=== PATIENT | female | born 1945 | race Caucasian/White ===

== ENCOUNTER 2020-01-17 09:30 | Outpatient (REF) | payer MEDICARE, SELFPAY | END 2020-01-17 09:31 | disposition home or self-care (01) | LOC: HO.LAB 09:30 | PROVIDERS: PCP Internal Medicine; Visit Provider Internal Medicine | DX: Z20.828 Contact with and (suspected) exposure to other viral communicable diseases (principal) | CPT/HCPCS: 87635 ==

== ENCOUNTER 2020-02-12 11:20 | Outpatient (REF) | payer MEDICARE, SELFPAY | END 2020-02-12 11:21 | disposition home or self-care (01) | LOC: HO.HMGCLDS 11:20 | PROVIDERS: Visit Provider Internal Medicine | DX: Z20.828 Contact with and (suspected) exposure to other viral communicable diseases (principal) | CPT/HCPCS: C9803; U0003 ==

== ENCOUNTER → 2020-04-09 10:50 | Outpatient (BNVA) | payer MEDICARE, SELFPAY | PROVIDERS: PCP Internal Medicine; Visit Provider Advanced Practice Midwife | DX: N90.89 Other specified noninflammatory disorders of vulva and perineum (principal) | CPT/HCPCS: Q3014 ==

== ENCOUNTER 2020-04-22 11:18 | Outpatient (REF) | payer MEDICARE, SELFPAY ==
--- NOTE | 2020-04-22 11:24 | US_ITS ---
EXAMINATION: US PELVIS, LIMITED/FOLLOWUP CLINICAL INFORMATION: Left-sided labia mass. Rule out Bartholin's gland/hernia/mass. COMPARISON: None TECHNIQUE: Transabdominal limited imaging through the labia was performed. FINDINGS: There is anechoic cyst with internal debris left major labia measuring 3.5 x 2.0 x 2.8 cm. There is mild posterior acoustic enhancement but no increased vascularity seen. US/US pelvic limited IMPRESSION: Complex cyst likely Bartholin's cyst along the left labia majora.
== END 2020-04-22 11:19 | disposition home or self-care (01) ==
LOC: HO.US 11:18
PROVIDERS: Visit Provider Advanced Practice Midwife
DX: N90.89 Other specified noninflammatory disorders of vulva and perineum (principal)
CPT/HCPCS: 76857

== ENCOUNTER → 2020-04-25 11:29 | Outpatient (BNVA) | payer MEDICARE, SELFPAY | PROVIDERS: PCP Internal Medicine; Visit Provider Advanced Practice Midwife | DX: Z13.89 Encounter for screening for other disorder (principal) | CPT/HCPCS: Q3014 ==

== ENCOUNTER 2020-04-29 11:00 | Outpatient (REF) | payer MEDICARE, SELFPAY | END 2020-04-29 11:01 | disposition home or self-care (01) | LOC: HO.LAB 11:00 | PROVIDERS: PCP Internal Medicine; Visit Provider Obstetrics & Gynecology | DX: N75.0 Cyst of Bartholin's gland (principal) | CPT/HCPCS: 56420; 87071; 87205 ==

== ENCOUNTER → 2020-05-22 10:13 | Outpatient (BNVA) | payer MEDICARE, SELFPAY | PROVIDERS: Visit Provider Obstetrics & Gynecology | DX: N75.0 Cyst of Bartholin's gland (principal) | CPT/HCPCS: 99212 ==

== ENCOUNTER 2020-06-04 11:15 | Outpatient (REF) | payer MEDICARE, SELFPAY ==
--- NOTE | ~2020-06-04 | US_ITS ---
EXAMINATION: US PELVIS COMPLETE US TRANSVAGINAL CLINICAL INFORMATION: Hypertrophy of the uterus. COMPARISON: Ultrasound limited pelvis 04/22/2020. TECHNIQUE: Transabdominal and transvaginal ultrasounds pelvis are performed. FINDINGS: The uterus is anteverted and anteflexed measuring 7.9 cm in length, 4.4 cm in AP and 7.1 cm in transverse dimension. Endometrium is not seen. There are innumerable hypoechoic fibroid is seen. The largest fibroid in the fundal uterus measures 3.4 x 3.2 x 3.4 cm. Small echogenic focus seen in the cervix measuring 0.5 x 0.4 x 0.7 cm. Both ovaries are unremarkable. There is no free fluid in the pelvis. US/US pelvic complete IMPRESSION: Multiple uterine fibroids. The largest fibroid is mentioned measuring 3.4 cm. Ovaries are not seen. There is no free fluid in cul-de-sac. There is no free fluid in the pelvis.
--- NOTE | ~2020-06-04 | US_ITS ---
EXAMINATION: US PELVIS COMPLETE US TRANSVAGINAL CLINICAL INFORMATION: Hypertrophy of the uterus. COMPARISON: Ultrasound limited pelvis 04/22/2020. TECHNIQUE: Transabdominal and transvaginal ultrasounds pelvis are performed. FINDINGS: The uterus is anteverted and anteflexed measuring 7.9 cm in length, 4.4 cm in AP and 7.1 cm in transverse dimension. Endometrium is not seen. There are innumerable hypoechoic fibroid is seen. The largest fibroid in the fundal uterus measures 3.4 x 3.2 x 3.4 cm. Small echogenic focus seen in the cervix measuring 0.5 x 0.4 x 0.7 cm. Both ovaries are unremarkable. There is no free fluid in the pelvis. US/US transvaginal IMPRESSION: Multiple uterine fibroids. The largest fibroid is mentioned measuring 3.4 cm. Ovaries are not seen. There is no free fluid in cul-de-sac. There is no free fluid in the pelvis.
== END 2020-06-04 11:16 | disposition home or self-care (01) ==
LOC: HO.US 11:15
PROVIDERS: Visit Provider Obstetrics & Gynecology
DX: N85.2 Hypertrophy of uterus (principal)
CPT/HCPCS: 76830; 76856

== ENCOUNTER → 2020-06-11 12:29 | Outpatient (BNVA) | payer MEDICARE, SELFPAY | PROVIDERS: Visit Provider Obstetrics & Gynecology | CPT/HCPCS: Q3014 ==

== ENCOUNTER 2020-06-13 07:38 | Outpatient (REF) | payer MEDICARE, SELFPAY ==
[2020-06-13 08:36] LABS: MANUAL DIFF FLAG NO
[2020-06-13 08:41] LABS: Basophils Percent Auto 0.6 % (0-2); Eosinophils Absolute Auto 0.2 X10*3/uL (0.0-0.4); Eosinophils Percent Auto 3.6 % (0-4); Hematocrit 39.7 % (37-47); Hemoglobin 12.8 g/dl (12.0-16.0); Imm Gran Abs Auto 0.01 X10*3/uL (0.00-0.03); Imm Gran Pct Auto 0.2 % (0.0-0.4); Lymphocytes Absolute Auto 1.7 X10*3/uL (1.2-4.9); Mean Corpuscular HGB Conc 32.2 g/dl (31.0-35.0); Mean Corpuscular Hemoglobin 32.3 pg (27.0-33.0); Mean Corpuscular Volume 100.3 fL (80-98); Mean Platelet Volume 10.3 fL (9.4-12.3); Monocytes Absolute Auto 0.3 X10*3/uL (0.1-1.2); Monocytes Percent Auto 7.2 % (2-11); Neutrophils Absolute Auto 2.5 X10*3/uL (2.0-8.3); Neutrophils Percent Auto 52.4 % (45-73); Platelet Count 289 X10*3/uL (160-400); Red Blood Count 3.96 X10*6/uL (4.20-5.50); Red Cell Distribution Width 12.2 % (11.0-16.0); White Blood Count 4.7 X10*3/uL (4.8-10.8)
[2020-06-13 09:06] LABS: Alanine Aminotransferase 26 U/L (0-31); Albumin Level 4.1 g/dL (3.5-5.0); Alkaline Phosphatase 45 U/L (39-117); Anion Gap 10 (12-20); Aspartate Amino Transferase 27 U/L (5-31); Bilirubin Total 0.7 mg/dL (0.0-1.0); Blood Urea Nitrogen 23 mg/dL (9-16); Calcium 9.5 mg/dL (8.4-10.2); Carbon Dioxide 30 mmol/L (22-29); Chloride 106 mmol/L (96-108); Cholesterol 186 mg/dL; Estimated Glomerular Filt Rate > 60; Glucose Random 115 mg/dL (60-115); HDL Cholesterol 55 mg/dL; LDL Cholesterol Calculated 118 mg/dl; Sodium 142 mmol/L (135-145); Total Protein 6.8 g/dL (6.5-8.0); Triglycerides 66 mg/dL
[2020-06-13 09:28] LABS: Free T4 (Free Thyroxine) 0.91 ng/dL (0.71-1.85); Thyroid Stimulating Hormone 2.79 uIU/mL (0.32-4.0); Vitamin D 25-OH Total 39.8 ng/mL (>30)
[2020-06-14 18:28] LABS: Folate 14.8 ng/mL (> or = 4.0); Vitamin B12 1042 pg/mL (200-900)
== END 2020-06-13 07:39 | disposition home or self-care (01) ==
LOC: HO.LAB 07:38
PROVIDERS: PCP Internal Medicine; Visit Provider Internal Medicine
DX: I10 Essential (primary) hypertension (principal); E78.00 Pure hypercholesterolemia, unspecified; F32.9 Major depressive disorder, single episode, unspecified; F41.9 Anxiety disorder, unspecified
CPT/HCPCS: 36415; 80053; 80061; 82306; 82607; 82746; 84439; 84443; 85025

== ENCOUNTER 2021-03-04 09:54 | Outpatient (REF) | payer MEDICARE, SELFPAY ==
[2021-03-05 09:31] LABS: CT PCR NOT DETECTED (Not Detect.); NG PCR NOT DETECTED (Not Detect.)
[2021-03-05 10:02] LABS: BV Int Neg Control Negative (Negative); BV Int Pos Control Positive (Positive)
== END 2021-03-04 09:55 | disposition home or self-care (01) ==
LOC: HO.LAB 09:54
PROVIDERS: PCP Internal Medicine; Visit Provider Advanced Practice Midwife
DX: R10.2 Pelvic and perineal pain (principal)
CPT/HCPCS: 81003; 87480; 87491; 87510; 87591; 87660; 99212

== ENCOUNTER 2021-03-18 10:30 | Outpatient (REF) | payer MEDICARE, SELFPAY ==
--- NOTE | ~2021-03-18 | MM_ITS ---
EXAMINATION: BONE DENSITOMETRY CLINICAL INDICATION: Other specified disorders of bone density and structure. COMPARISON: Previous BD dated 03/14/2019 and baseline BD dated 08/29/2015. TECHNIQUE: Using a [employer] DXA System (software version: 13.1) manufactured by [employer], dual-energy x-ray absorptiometry was performed of the lumbar spine and left hip. The images are of good technical quality. Summary results are attached. FINDINGS: AP SPINE L1-L4: Current: BMD 1.028 g/cm2, Z-score 1.0, T-score -1.3, osteopenia, 0.3% increase from previous, 0.6% increase from baseline (<5% change is not significant). Prior: BMD 1.025 g/cm2. Baseline: BMD 1.022 g/cm2. LEFT FEMUR, NECK: Current: BMD 0.613 g/cm2, Z-score -0.8, T-score -3.1, osteoporosis. Prior: BMD 0.640 g/cm2. Baseline: BMD 0.661 g/cm2. LEFT FEMUR, TOTAL: Current: BMD 0.701 g/cm2, Z-score -0.3, T-score -2.4, osteopenia, 6.9% decrease from previous, 13.3% decrease from baseline (<5% change is not significant). Prior: BMD 0.753 g/cm2. Baseline: BMD 0.809 g/cm2. IDENTIFIED RISK FACTORS: Osteoporosis, height loss, low calcium intake, menopause. HISTORY OF FRACTURE: Feet, trauma (20s, 40s) MEDICATIONS: None listed. MM/XR DEXA axial skeleton IMPRESSION: 1. DIAGNOSIS: Osteoporosis based on the lowest T-score value of -3.1 in the femoral neck applying World Health Organization criteria. 2. 10-YEAR FRACTURE RISK PREDICTION, FRAX: According to the guidelines, FRAX calculation should only be performed on patients in the osteopenia bone density category. 3. Treatment Recommendations: NOF guidelines recommend consideration for treatment in postmenopausal women and men age 50 and older presenting with the following: -A hip or vertebral (clinical or morphometric) fracture. -T-score less than or equal to -2.5 at the femoral neck or spine after appropriate evaluation to exclude secondary causes. -Low bone mass at the hip or spine and a 10-year fracture probability by FRAX of greater than or equal to 3% for hip fracture or greater than or equal to 20% for major osteoporotic fracture based on the [place] adapted WHO algorithm. 4. Other Recommendations: All treatment decisions require clinical judgment and consideration of individual patient factors, including patient preferences, comorbidities, previous drug use, risk factors not captured in the FRAX model (e.g. frailty, falls, vitamin D deficiency, increased bone turnover, interval significant decline in bone density) and possible under or overestimation of fracture risk by FRAX. Additional medical evaluation for secondary cause of low bone mineral density may be appropriate. FUTURE SCAN RECOMMENDATION: People with diagnosed cases of osteoporosis or at high risk for fracture should have regular bone mineral density tests. For patients eligible for Medicare, routine testing is allowed once every 2 years. The testing frequency can be increased to one year for patients who have rapidly progressing disease, those who are receiving or discontinuing medical therapy to restore bone mass, or have additional risk factors.
== END 2021-03-18 10:31 | disposition home or self-care (01) ==
LOC: HO.MAMMO 10:30
PROVIDERS: Visit Provider Internal Medicine
DX: Z13.820 Encounter for screening for osteoporosis (principal); M85.80 Other specified disorders of bone density and structure, unspecified site; Z78.0 Asymptomatic menopausal state
CPT/HCPCS: 77080

== ENCOUNTER 2021-03-25 11:21 | Outpatient (REF) | payer MEDICARE, SELFPAY ==
--- NOTE | ~2021-03-25 | US_ITS ---
EXAMINATION: US PELVIS CLINICAL INFORMATION: Pelvic pain, fibroids and enlarged anterior urethra. COMPARISON: None TECHNIQUE: Ultrasound of the pelvis is performed using both transabdominal and transvaginal transducers along with Doppler. Transvaginal imaging is performed due to inadequate visualization transabdominally. Translabial imaging was also performed. FINDINGS: Exam is limited. The uterus appears enlarged for a postmenopausal patient measuring 9.1 x 4.9 x 6.7 cm in dimension. The uterus is heterogeneous appearing, question secondary to large central fibroid or clustered fibroids. Measured as one fibroid, this area measures approximately 6.4 x 4.6 x 6.1 cm. The endometrium is not seen. There is a calcification in the cervix that measures 6 x 4 x 7 mm. The ovaries are not seen. There is no fluid in the pelvis. There is mobile echogenic debris seen in the bladder. There is, tail artifact seen along the anterior gallbladder wall questionable for air. The urethra appears dilated. There is echogenic density in the urethra with comet tail artifact questionable for calcification or air. US/US pelvic and transvaginal IMPRESSION: Very limited exam. Enlarged uterus. Heterogeneous central uterine mass questionable for fibroid or clustered fibroids. This measures 6.4 x 4.6 x 6.1 cm and is increased in size from June 2020 exam when this measured 3.4 x 3.2 x 3.4 cm. The endometrium is not seen. Endometrial lesion cannot be excluded. Mobile echogenic debris in the bladder. Common tail artifact along the anterior bladder wall questionable for air. Dilated urethra with echogenic focus with comet tail artifact, question calcification or air. Follow-up CT scan may be helpful.
== END 2021-03-25 11:22 | disposition home or self-care (01) ==
LOC: HO.US 11:21
PROVIDERS: Visit Provider Advanced Practice Midwife
DX: R10.2 Pelvic and perineal pain (principal)
CPT/HCPCS: 76830; 76856

== ENCOUNTER 2021-03-26 11:00 | Outpatient (RCR) | payer MEDICARE, SELFPAY | END 2021-03-27 08:47 | disposition home or self-care (01) | LOC: HO.PT 11:00 | PROVIDERS: PCP Internal Medicine; Visit Provider Physician Assistant | DX: M25.371 Other instability, right ankle (principal) | CPT/HCPCS: 97110; 97162 ==

== ENCOUNTER → 2021-04-08 10:49 | Outpatient (BNVA) | payer MEDICARE, SELFPAY | PROVIDERS: PCP Internal Medicine; Visit Provider Advanced Practice Midwife | DX: Z71.2 Person consulting for explanation of examination or test findings (principal); D21.9 Benign neoplasm of connective and other soft tissue, unspecified; N36.9 Urethral disorder, unspecified | CPT/HCPCS: Q3014 ==

== ENCOUNTER 2021-04-14 07:59 | Outpatient (REF) | payer MEDICARE, SELFPAY ==
[2021-04-14 08:16] LABS: MANUAL DIFF FLAG NO
[2021-04-14 08:29] LABS: Basophils Percent Auto 0.7 % (0-2); Eosinophils Absolute Auto 0.2 X10*3/uL (0.0-0.4); Eosinophils Percent Auto 3.7 % (0-4); Hematocrit 39.4 % (37.0-47.0); Imm Gran Abs Auto 0.01 X10*3/uL (0.00-0.03); Imm Gran Pct Auto 0.2 % (0.0-0.4); Lymphocytes Absolute Auto 1.5 X10*3/uL (1.2-4.9); Lymphocytes Percent Auto 33.8 % (20-40); Mean Corpuscular Hemoglobin 33.1 pg (27.0-33.0); Mean Corpuscular Volume 100.3 fL (80.0-98.0); Mean Platelet Volume 9.8 fL (9.4-12.3); Monocytes Absolute Auto 0.4 X10*3/uL (0.1-1.2); Monocytes Percent Auto 8.8 % (2-11); Neutrophils Absolute Auto 2.3 x10*3/uL (2.0-8.3); Neutrophils Percent Auto 52.8 % (45-73); Platelet Count 331 X10*3/uL (160-400); Red Blood Count 3.93 X10*6/uL (4.20-5.50); Red Cell Distribution Width 12.3 % (11.0-16.0); White Blood Count 4.3 X10*3/uL (4.8-10.8)
[2021-04-14 08:40] LABS: Estimated Average Glucose 111 mg/dL; Hemoglobin A1c % 5.5 %
[2021-04-14 08:51] LABS: Alanine Aminotransferase 40 U/L (0-31); Alkaline Phosphatase 47 U/L (39-117); Anion Gap 10 (12-20); Aspartate Amino Transferase 30 U/L (5-31); Bilirubin Total 0.5 mg/dL (0.0-1.0); Blood Urea Nitrogen 20 mg/dL (9-16); Calcium 10.3 mg/dL (8.4-10.2); Carbon Dioxide 33 mmol/L (22-29); Chloride 103 mmol/L (96-108); Cholesterol 239 mg/dL; Estimated Glomerular Filt Rate > 60; Glucose Random 116 mg/dL (60-115); HDL Cholesterol 54 mg/dL; LDL Cholesterol Calculated 165 mg/dl; Potassium 3.8 mmol/L (3.3-5.1); Sodium 142 mmol/L (135-145); Triglycerides 101 mg/dL
[2021-04-14 09:16] LABS: Free T4 (Free Thyroxine) 0.94 ng/dL (0.71-1.85); Thyroid Stimulating Hormone 3.53 uIU/mL (0.32-4.0); Vitamin D 25-OH Total 43.9 ng/mL (>30)
[2021-04-14 09:28] LABS: Folate 16.9 ng/mL (> or = 4.0); Vitamin B12 1109 pg/mL (200-900)
== END 2021-04-14 08:00 | disposition home or self-care (01) ==
LOC: HO.LAB 07:59
PROVIDERS: PCP Internal Medicine; Visit Provider Internal Medicine
DX: R73.01 Impaired fasting glucose (principal); I10 Essential (primary) hypertension; E78.00 Pure hypercholesterolemia, unspecified
CPT/HCPCS: 36415; 80053; 80061; 82306; 82607; 82746; 83036; 84439; 84443; 85025

== ENCOUNTER → 2021-06-02 11:32 | Outpatient (BNVA) | payer MEDICARE, SELFPAY | PROVIDERS: PCP Internal Medicine | DX: R10.2 Pelvic and perineal pain (principal) | CPT/HCPCS: 51798; 99202 ==

== ENCOUNTER 2021-06-25 16:06 | Outpatient (REF) | payer MEDICARE, SELFPAY ==
[2021-06-25 17:05] LABS: Blood Urea Nitrogen 18 mg/dL (9-16); Estimated Glomerular Filt Rate > 60
== END 2021-06-25 16:07 | disposition home or self-care (01) ==
LOC: HO.LAB 16:06
PROVIDERS: PCP Internal Medicine; Visit Provider Advanced Practice Midwife
DX: Z01.818 Encounter for other preprocedural examination (principal); R51.9 Headache, unspecified
CPT/HCPCS: 36415; 82565; 84520

== ENCOUNTER 2021-07-02 05:59 | Outpatient (REF) | payer OTHER, SELFPAY ==
--- NOTE | ~2021-07-02 | CT_ITS ---
EXAMINATION: CT ABDOMEN AND PELVIS WITH CONTRAST CLINICAL INFORMATION: Pelvic and perineal pain. COMPARISON: Previous pelvic ultrasound March 2021. TECHNIQUE: Multidetector volumetric images were obtained from the superior aspect of the liver through the pubic symphysis following administration 85 mL of Omnipaque 350 intravenous contrast. Sagittal and coronal reformatted images were obtained on the technologist's workstation. Oral contrast: Yes This CT examination was performed using dose optimization techniques as appropriate, variously including the following: *Automated exposure control *Adjustment of mA and/or kV according to patient size (this includes techniques or standardized protocols for targeted exams where dose is matched to indication/reason for exam; i.e. extremities or head) *Use of iterative reconstruction technique DLP: 223 mGy-cm FINDINGS: LUNG BASES: The visualized lung bases are unremarkable. LIVER, GALLBLADDER, AND BILIARY TREE: The liver is normal in size, shape, and attenuation. No focal hepatic lesion or biliary ductal dilatation is present. The gallbladder has been removed. PANCREAS: Unremarkable. SPLEEN: Unremarkable. ADRENAL GLANDS: Unremarkable. KIDNEYS AND URETERS: There are bilateral renal cysts. 2 cm cyst in the upper pole of the right kidney may have a small focus of wall calcification. The remainder of the cysts represent simple cysts. No imaging followup is needed. BLADDER: There is a small calcification along the anterior upper bladder wall. The bladder is otherwise unremarkable. GASTROINTESTINAL TRACT: There is diverticulosis of the colon. There is stool throughout the colon suggestive of mild constipation. Small and large bowel is otherwise normal. The appendix is normal. The stomach is normal. ABDOMINAL WALL: No significant hernia is appreciated. LYMPH NODES: Normal. VASCULAR: There is evidence of atherosclerotic disease. PELVIC VISCERA: The uterus is enlarged. There are multiple uterine lesions. The endometrium cannot be delineated. There is a small calcification in the lower uterine segment or cervix. The ovaries are normal-appearing. OSSEOUS STRUCTURES: There are degenerative changes of the spine. CT/CT abdomen pelvis w con IMPRESSION: Enlarged uterus with multiple lesions. The endometrium is not seen. Endometrial mass cannot be excluded. Followup pelvic MRI should be considered if clinically indicated i.e. history of vaginal bleeding. Small calcification in the lower uterine segment or cervix. Diverticulosis of the colon and constipation. Bilateral renal cysts. Post cholecystectomy. Atherosclerotic disease. Fleischner guidelines were followed.
[2021-07-02] MEDS: Barium Sulfate Oral (Berry) 450 ML ORAL.SUSP PO (08:50)
[2021-07-02] MEDS: iohexoL 350 MG/ML 100 ML INFUS..BTL IV (08:50)
== END 2021-07-02 06:00 | disposition home or self-care (01) ==
LOC: HO.CT 05:59
PROVIDERS: Visit Provider Advanced Practice Midwife
DX: R10.2 Pelvic and perineal pain (principal)
CPT/HCPCS: 74177; Q9967

== ENCOUNTER → 2021-07-14 10:21 | Outpatient (BNVA) | payer OTHER, SELFPAY | PROVIDERS: PCP Internal Medicine; Visit Provider Advanced Practice Midwife | DX: R10.2 Pelvic and perineal pain (principal); D25.9 Leiomyoma of uterus, unspecified; Z71.2 Person consulting for explanation of examination or test findings | CPT/HCPCS: 99212 ==

== ENCOUNTER 2022-01-29 09:28 | Outpatient (REF) | payer OTHER, SELFPAY | END 2022-01-29 09:29 | disposition home or self-care (01) | LOC: HO.LAB 09:28 | PROVIDERS: PCP Internal Medicine; Visit Provider Advanced Practice Midwife | DX: Z13.89 Encounter for screening for other disorder (principal) ==

== ENCOUNTER 2022-04-15 08:08 | Outpatient (REF) | payer OTHER, SELFPAY ==
[2022-04-15 08:29] LABS: MANUAL DIFF FLAG NO
[2022-04-15 09:00] LABS: Basophils Absolute Auto 0.1 X10*3/uL (0.0-0.2); Eosinophils Absolute Auto 0.3 X10*3/uL (0.0-0.4); Eosinophils Percent Auto 4.8 % (0-4); Hematocrit 39.3 % (37.0-47.0); Hemoglobin 13.1 g/dl (12.0-16.0); Imm Gran Abs Auto 0.01 X10*3/uL (0.00-0.03); Imm Gran Pct Auto 0.2 % (0.0-0.4); Lymphocytes Absolute Auto 1.5 X10*3/uL (1.2-4.9); Lymphocytes Percent Auto 28.6 % (20-40); Mean Corpuscular HGB Conc 33.3 g/dl (31.0-35.0); Mean Corpuscular Hemoglobin 32.9 pg (27.0-33.0); Mean Corpuscular Volume 98.7 fL (80.0-98.0); Monocytes Absolute Auto 0.4 X10*3/uL (0.1-1.2); Monocytes Percent Auto 7.6 % (2-11); Neutrophils Percent Auto 57.8 % (45-73); Platelet Count 336 X10*3/uL (160-400); Red Blood Count 3.98 X10*6/uL (4.20-5.50); Red Cell Distribution Width 13.2 % (11.0-16.0); White Blood Count 5.3 X10*3/uL (4.8-10.8)
[2022-04-15 09:36] LABS: Alanine Aminotransferase 19 U/L (0-31); Albumin Level 4.1 g/dL (3.5-5.0); Alkaline Phosphatase 47 U/L (39-117); Anion Gap 11 (12-20); Aspartate Amino Transferase 24 U/L (5-31); Bilirubin Total 0.5 mg/dL (0.0-1.0); Blood Urea Nitrogen 29 mg/dL (9-16); Calcium 10.1 mg/dL (8.4-10.2); Carbon Dioxide 29 mmol/L (22-29); Chloride 102 mmol/L (96-108); Cholesterol 227 mg/dL; Estimated Glomerular Filt Rate > 60; Glucose Random 102 mg/dL (60-115); HDL Cholesterol 63 mg/dL; LDL Cholesterol Calculated 148 mg/dl; Potassium 4.3 mmol/L (3.3-5.1); Sodium 138 mmol/L (135-145); Total Protein 6.6 g/dL (6.5-8.0); Triglycerides 80 mg/dL
[2022-04-15 09:53] LABS: Free T4 (Free Thyroxine) 1.08 ng/dL (0.71-1.85); Thyroid Stimulating Hormone 3.49 uIU/mL (0.32-4.0); Vitamin D 25-OH Total 35.1 ng/mL (>30)
[2022-04-15 10:04] LABS: Folate 14.1 ng/mL (> or = 4.0); Vitamin B12 538 pg/mL (200-900)
[2022-04-15 10:41] LABS: Appearance Urine Hazy; Color Urine Yellow; Glucose Urine UA Negative (Negative); Leukocyte Esterase Urine Small (1+) (Negative); Nitrite Urine Negative (Negative); Specific Gravity - Urine <= 1.005 (1.005-1.025); UMIC TRIGGER UA YES; Urine Blood Negative (Negative); Urine Ketones Negative (Negative); Urine Protein Negative (Neg-Trace)
[2022-04-15 10:50] LABS: Bacteria Urine None Seen (None Seen); Hyaline Casts Urine 0-2 /LPF (0-2); RBC Urine 0-2 /HPF (0-2)
== END 2022-04-15 08:09 | disposition home or self-care (01) ==
LOC: HO.LAB 08:08
PROVIDERS: PCP Internal Medicine; Visit Provider Internal Medicine
DX: E78.00 Pure hypercholesterolemia, unspecified (principal)
CPT/HCPCS: 36415; 80053; 80061; 81001; 82306; 82607; 82746; 84439; 84443; 85025

== ENCOUNTER 2022-11-02 15:34 | Outpatient (AMB) | payer OTHER, SELFPAY ==
[2022-11-02 15:38] VITALS: BP 130/72; PULSE 75; O2SAT 98; BMI 23.2
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
== END 2022-11-02 16:03 | disposition home or self-care (01) ==
PROVIDERS: Visit Provider Internal Medicine
DX: I10 Essential (primary) hypertension (principal); E78.00 Pure hypercholesterolemia, unspecified; R73.01 Impaired fasting glucose; F41.1 Generalized anxiety disorder; R41.89 Other symptoms and signs involving cognitive functions and awareness; R00.2 Palpitations
CPT/HCPCS: 99214

== ENCOUNTER 2023-01-06 08:18 | Outpatient (REF) | payer OTHER, SELFPAY ==
[2023-01-06 08:42] LABS: MANUAL DIFF FLAG NO
[2023-01-06 08:56] LABS: Basophils Percent Auto 0.6 % (0-2); Eosinophils Absolute Auto 0.2 X10*3/uL (0.0-0.4); Eosinophils Percent Auto 4.5 % (0-4); Hematocrit 39.9 % (37.0-47.0); Hemoglobin 13.1 g/dl (12.0-16.0); Imm Gran Abs Auto 0.01 X10*3/uL (0.00-0.03); Imm Gran Pct Auto 0.2 % (0.0-0.4); Lymphocytes Absolute Auto 1.4 X10*3/uL (1.2-4.9); Lymphocytes Percent Auto 30.7 % (20-40); Mean Corpuscular HGB Conc 32.8 g/dl (31.0-35.0); Mean Corpuscular Hemoglobin 32.2 pg (27.0-33.0); Mean Platelet Volume 9.7 fL (9.4-12.3); Monocytes Absolute Auto 0.4 X10*3/uL (0.1-1.2); Monocytes Percent Auto 8.4 % (2-11); Neutrophils Absolute Auto 2.6 x10*3/uL (2.0-8.3); Neutrophils Percent Auto 55.6 % (45-73); Platelet Count 304 X10*3/uL (160-400); Red Blood Count 4.07 X10*6/uL (4.20-5.50); Red Cell Distribution Width 12.7 % (11.0-16.0); White Blood Count 4.6 X10*3/uL (4.8-10.8)
[2023-01-06 09:26] LABS: Alanine Aminotransferase 15 U/L (0-31); Alkaline Phosphatase 43 U/L (39-117); Anion Gap 12 (12-20); Aspartate Amino Transferase 21 U/L (5-31); Bilirubin Total 0.8 mg/dL (0.0-1.0); Blood Urea Nitrogen 21 mg/dL (9-16); Calcium 9.8 mg/dL (8.4-10.2); Carbon Dioxide 27 mmol/L (22-29); Chloride 105 mmol/L (96-108); Cholesterol 199 mg/dL (<200); Estimated Glomerular Filt Rate > 60; Glucose Random 111 mg/dL (60-115); HDL Cholesterol 58 mg/dL (>40); LDL Cholesterol Calculated 126 mg/dL (<100); Potassium 3.7 mmol/L (3.3-5.1); Sodium 140 mmol/L (135-145); Triglycerides 76 mg/dL (<150)
[2023-01-06 09:59] LABS: Free T4 (Free Thyroxine) 1.04 ng/dL (0.71-1.85); Thyroid Stimulating Hormone 3.27 uIU/mL (0.32-4.0)
== END 2023-01-06 08:19 | disposition home or self-care (01) ==
LOC: HO.LAB 08:18
PROVIDERS: PCP Internal Medicine; Visit Provider Internal Medicine
DX: E78.00 Pure hypercholesterolemia, unspecified (principal)
CPT/HCPCS: 36415; 80053; 80061; 84439; 84443; 85025

== ENCOUNTER 2023-07-12 17:15 | Outpatient (AMB) | payer OTHER, SELFPAY ==
--- NOTE | 2023-07-12 17:27 | A.OFFPC_ITS ---
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 Accompanied by: Daughter Allergies amlodipine Allergy (Unknown, Verified 07/12/23 17:29) swelling metoprolol Allergy (Unknown, Verified 07/12/23 17:29) Unknown pravastatin Allergy (Unknown, Verified 07/12/23 17:29) Unknown simvastatin Allergy (Unknown, Verified 07/12/23 17:29) Unknown Medication List - Last Reconciled 07/12/23 by Haylee Sanchez MD atorvastatin 10 mg PO DAILY blood pressure monitor (Blood Pressure Kit) As directed blood pressure test kit-medium As directed compress.stocking,knee,reg,med As directed 20-30 mm mercury dorzolamide-timolol 22.3-6.8 mg/mL 1 drp ophthalmic (eye) BID losartan 25 mg PO DAILY multivitamin 1 tab PO DAILY prednisolone acetate 1% drps ophthalmic (eye) Tobacco use date assessed: 07/12/23 Fall risk assessment: No Falls in past year Last assessed Fall Risk: 07/12/23 Dental Screening Dental Screen Date: 07/12/23 Did you have a dental visit in the last 12 months?: Yes Did you have a dental problem in the last 6 months where you did not have access to dental care?: No Was dental information given to patient?: Patient has dentist HPI Physical Exam HPI Details 77-year-old female with hypertension hyp ercholesterolemia impaired glucose tolerance generalized anxiety disorder and cognitive impairment last seen in October 2022. Patient is up-to-date with colonoscopy June 2021, declined any mammogram, last bone density noted to have osteoporosis. 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 hearing test summer [facility] Medical History (Updated 07/12/23 @ 17:41 by Haylee Sanchez MD) Osteopenia Generalized anxiety disorder Pelvic pain Pelvic pain Urethral disorder, unspecified Vaginal mass Fibroids Finger avulsion Diverticulitis Osteoporosis Cognitive impairment Glaucoma Cardiomyopathy Hypercholesterolemia Complex renal cyst Restless leg syndrome Insomnia Hypertension Surgical History History of eye surgery Status post excision of lipoma Corneal transplant status History of cholecystectomy Family History Father Prostate cancer Mother No problems noted. Brother No problems noted. Sister Endometrial cancer Daughter No problems noted. Social History Housing: Apartment Alcohol intake: never Patient Tobacco Use Status: Never used Tobacco e-Cigarette/Vaping Use: Never Used Second Hand Smoke Exposure: No service: No Current occupational status: retired Gender identity: Female Cognitive needs: Yes Hearing needs: No Vision needs: Yes Questionnaire PHQ-9 Over the last 2 weeks, how often have you been bothered by any of the following problems? 1. Little interest or pleasure in doing things: not at all 2. Feeling down, depressed, or hopeless: not at all 3. Trouble falling or staying asleep, or sleeping too much: not at all 4. Feeling tired or having little energy: not at all 5. Poor appetite or overeating: not at all 6. Feeling bad about yourself - or that you are a failure or have let yourself or your family down: not at all 7. Trouble concentrating on things, such as reading the newspaper or watching television: not at all 8. Moving or speaking so slowly that other people could have noticed. Or the opposite - being so fidgety or restless that you have been moving around a lot more than usual: not at all 9. Thoughts that you would be better off or of hurting yourself in some way: not at all Total score: 0 Source: Developed by Drs. Greg Cook, Jagruti Brandon, Heber Young and colleagues, with an educational daxa from [employer]. Thrive Questionnaire Date Thrive assessed: 07/12/23 I am a: Patient What is your living situation today?: I have a steady place to live Within the past 12 months, did the food you bought not last and you didn't have the money to get more?: Never true Within the past 12 months, did you worry whether your food would run out before you got money to buy more?: Never true Do you have trouble paying for medicines?: No Do you have trouble getting transportation to medical appointments?: No Do you have trouble paying your heating and electricity bill?: No Do you have trouble taking care of your child, family member or friend?: No Do you have trouble with day-to-day activities such as bathing, preparing meals, shopping, managing finances, etc.?: No Are you currently unemployed and looking for a job?: No Are you interested in more education?: No Please select the resources that you would like help with: None Currently or been in a relationship where the following occur: no concerns reported THRIVE Score: 0 AUDIT C Alcohol Use Questionnaire (AUDIT-C) 1. How often do you have a drink containing alcohol?: Never Total Score: 0 RAYMOND-7 AMB Questionnaire RAYMOND-7 Date RAYMOND - 7 assessed: 07/12/23 Feeling nervous, anxious, or on edge: 0 = Not at all Not being able to stop or control worryin = Not at all Worrying too much about different things: 0 = Not at all Trouble relaxin = Not at all Being so restless that it is hard to sit still: 0 = Not at all Becoming easily annoyed or irritable: 0 = Not at all Feeling afraid as if something awful might happen: 0 = Not at all Total RAYMOND-7 score (0-4 normal; 5-9 mild; 10-14 moderate; 15-21 severe): 0 Source: Developed by Drs. Greg Cook, Jagruti Brandon, Heber Young and colleagues, with an educational daxa from [employer]. Review of Systems Const Denies poor appetite and Denies weakness Eyes Denies no additional complaints ENT Reports Normal hearing present, Denies dizziness, Denies nasal congestion, Denies tinnitus and Denies sore throat Card Denies chest pain, Denies syncope, Denies rapid heart rate and Denies dyspnea Resp Denies cough and Denies dyspnea GI Denies change in stool character, Reports constipation, Denies diarrhea, Denies nausea and Denies vomiting Denies urinary frequency, Denies difficulty voiding and Denies dysuria Neuro Reports Normal hearing present, Denies confusion, Denies dizziness, Denies syncope and Denies weakness Psych Denies confusion Physical exam (Primary Care) Vital Signs: Last Vital Signs BP 136/70 07/12/23 17:28 BMI result Body Mass Index 22.8 Tobacco/Smoking Status: Tobacco use Status Tobacco use date assessed 07/12/23 07/12/23 17:34 Patient Tobacco Use Status Never used Tobacco 07/12/23 17:34 e-Cigarette/Vaping Use Never Used 07/12/23 17:34 PHQ-9: PHQ-9 Score PHQ-9: Total score 0 07/12/23 17:34 Thrive Assessment: Date of Thrive Assessment Date Thrive assessed 07/12/23 07/12/23 17:34 Currently or been in a relationship where the following occur: no concerns reported Const General: No confusion Orientation/consciousness: No confusion HENMT Head: Yes normocephalic Ears: external ears normal and TM's normal bilaterally Face and sinus: Yes normal facial exam Mouth: moist mucous membranes Throat: Yes tonsils normal Eyes Conjunctivae: conjunctivae normal Pupils: Equal, round and reactive pupils present and Pupil accommodation reflex normal Direct Ophthalmoscopy: normal light reflex Neck Neck: No lymphadenopathy Thyroid: Thyroid normal Chest Chest palpation & inspection: normal inspection of the chest Resp Effort & Inspection: normal respiratory effort and no audible wheezes Auscultation: clear to auscultation bilaterally, no crackles, no wheezes and lung sounds not diminished Cardio Rate: regular rate Rhythm: regular rhythm Peripheral pulses: radial pulses present and dorsalis pedis present GI Other: declined rectal Palpation (GI): no masses Auscultation: normal bowel sounds and normoactive bowel sounds Rectal Exam - Female: deferred Skin General skin exam: no rashes or lesions noted Rashes: no rashes Neuro General: No confusion Cranial nerves: Yes Equal, round and reactive pupils present and Yes Normal hearing present Cognition (Neuro): normal cognition Gait exam (Neuro): Normal gait present Motor exam (neuro): 5/5 motor strength present throughout Deep tendon reflexes (DTR's): Right brachioradialis reflex intensity grade: 2+, Left brachioradialis reflex intensity grade: 2+, Right patellar reflex intensity grade: 2+ and Left patellar reflex intensity grade: 2+ Extrem General: No edema Assessment and Plan Assessment & Plan (1) Annual physical exam: Code(s): Z00.00 - Encounter for general adult medical examination without abnormal findings (2) Impaired fasting blood sugar: Code(s): R73.01 - Impaired fasting glucose Plan: Decrease the amount of carbohydrate intake, pasta, bread, rice and potatoes are all sugar and that is aside from all the sweet stuff, remember that fruits are g ood but they are Sweet also. (3) Hypercholesterolemia: Code(s): E78.00 - Pure hypercholesterolemia, unspecified Plan: Avoid fried foods, chicken skin, eggs, butter margarine, pastries and meat. Be it pork or beef they have a lot of cholesterol atorvastatin 10 mg once a day January 2023 showing 126. (4) Hypertension: Code(s): I10 - Essential (primary) hypertension Qualifiers: Hypertension type: essential hypertension Qualified Code(s): I10 - Essential (primary) hypertension Plan: Continue with blood pressure medication. Decrease salt intake and exercise on losartan 25 mg once a day (5) Generalized anxiety disorder: Code(s): F41.1 - Generalized anxiety disorder Plan: Stable (6) Osteoporosis: Code(s): M81.0 - Age-related osteoporosis without current pathological fracture Plan: Reminded about bone density Orders: Orders XR DEXA axial skeleton Today M81.0 - Age-related osteoporosis without current pathological fracture Comprehensive Met. Panel 6 Months E78.00 - Pure hypercholesterolemia, unspecified Thyroid Stimulating Hormone 6 Months E78.00 - Pure hypercholesterolemia, unspecified Vitamin D 25-OH Total 6 Months E78.00 - Pure hypercholesterolemia, unspecified Hemoglobin A1c 6 Months E78.00 - Pure hypercholesterolemia, unspecified Complete Blood Count Auto Diff 6 Months E78.00 - Pure hypercholesterolemia, unspecified Free T4 (Free Thyroxine) 6 Months E78.00 - Pure hypercholesterolemia, unspecified Lipid Panel 6 Months E78.00 - Pure hypercholesterolemia, unspecified Vitamin B12 and Folate 6 Months E78.00 - Pure hypercholesterolemia, unspecified Coding Level of Care Code Est Pt Prev Care >65y(32632) Diagnoses Annual physical exam Z00.00 Impaired fasting blood sugar R73.01 Hypercholesterolemia E78.00 Essential hypertension I10 Hypertension type: essential hypertension Generalized anxiety disorder F41.1 Osteoporosis M81.0
[2023-07-12 17:28] VITALS: BP 136/70; BMI 22.8
== END 2023-07-12 18:00 | disposition home or self-care (01) ==
PROVIDERS: PCP Internal Medicine; Visit Provider Internal Medicine
DX: Z00.00 Encounter for general adult medical examination without abnormal findings (principal); R73.01 Impaired fasting glucose; E78.00 Pure hypercholesterolemia, unspecified; I10 Essential (primary) hypertension; F41.1 Generalized anxiety disorder; M81.0 Age-related osteoporosis without current pathological fracture
CPT/HCPCS: 99397

== ENCOUNTER 2023-07-28 11:36 | Outpatient (REF) | payer OTHER, SELFPAY ==
--- NOTE | ~2023-07-28 | MM_ITS ---
EXAMINATION: BONE DENSITOMETRY CLINICAL INDICATION: Age-related osteoporosis without current pathological fracture. COMPARISON: Previous BD dated 03/18/2021 and baseline BD dated 08/29/2015. TECHNIQUE: Using a IVFXPERT DXA System (software version: 13.1) manufactured by [employer], dual-energy x-ray absorptiometry was performed of the lumbar spine and left hip. The images are of good technical quality. Summary results are attached. FINDINGS: LEFT FEMUR, NECK: Current: BMD 0.581 g/cm2, Z-score -1.0, T-score -3.3, osteoporosis. Prior: BMD 0.613 g/cm2. Baseline: BMD 0.661 g/cm2. LEFT FEMUR, TOTAL: Current: BMD 0.730 g/cm2, Z-score 0.0, T-score -2.2, osteopenia, 4.1% increase from previous, 9.8% decrease from baseline (<5% change is not significant). Prior: BMD 0.701 g/cm2. Baseline: BMD 0.809 g/cm2. AP SPINE L1-L4: Current: BMD 1.036 g/cm2, Z-score 1.1, T-score -1.2, osteopenia, 0.8% increase from previous, 1.4% increase from baseline (<5% change is not significant). Prior: BMD 1.028 g/cm2. Baseline: BMD 1.022 g/cm2. IDENTIFIED RISK FACTORS: Menopause, osteoporosis. HISTORY OF FRACTURE: None listed. MEDICATIONS: Vitamin D, calcium. MM/XR DEXA axial skeleton IMPRESSION: 1. DIAGNOSIS: Osteoporosis based on the lowest T-score value of -3.3 in the femoral neck applying World Health Organization criteria. 2. 10-YEAR FRACTURE RISK PREDICTION, FRAX: According to the guidelines, FRAX calculation should only be performed on patients in the osteopenia bone density category. Therefore, FRAX was not performed on this patient.? 3. Treatment Recommendations: NOF guidelines recommend consideration for treatment in postmenopausal women and men age 50 and older presenting with the following: -A hip or vertebral (clinical or morphometric) fracture. -T-score less than or equal to -2.5 at the femoral neck or spine after appropriate evaluation to exclude secondary causes. -Low bone mass at the hip or spine and a 10-year fracture probability by FRAX of greater than or equal to 3% for hip fracture or greater than or equal to 20% for major osteoporotic fracture based on the [place] adapted WHO algorithm. 4. Other Recommendations: All treatment decisions require clinical judgment and consideration of individual patient factors, including patient preferences, comorbidities, previous drug use, risk factors not captured in the FRAX model (e.g. frailty, falls, vitamin D deficiency, increased bone turnover, interval significant decline in bone density) and possible under or overestimation of fracture risk by FRAX. Additional medical evaluation for secondary cause of low bone mineral density may be appropriate. FUTURE SCAN RECOMMENDATION: People with diagnosed cases of osteoporosis or at high risk for fracture should have regular bone mineral density tests. For patients eligible for Medicare, routine testing is allowed once every 2 years. The testing frequency can be increased to one year for patients who have rapidly progressing disease, those who are receiving or discontinuing medical therapy to restore bone mass, or have additional risk factors.
== END 2023-07-28 11:37 | disposition home or self-care (01) ==
LOC: HO.MAMMO 11:36
PROVIDERS: PCP Internal Medicine; Visit Provider Internal Medicine
DX: Z13.820 Encounter for screening for osteoporosis (principal); Z78.0 Asymptomatic menopausal state; M81.0 Age-related osteoporosis without current pathological fracture
CPT/HCPCS: 77080

== ENCOUNTER 2023-11-19 08:16 | Outpatient (AMB) | payer OTHER, SELFPAY ==
[2023-11-19 08:25] VITALS: BP 126/82; BMI 22.6
--- NOTE | 2023-11-19 08:25 | MHC.OFFVIS ---
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 Required: Yes Continuous Dryout Operator Helper Language: Dinkey Operator Services: Continuous Dryout Operator Helper Present (Beatriz BALDWIN) Information Interpreted: non-clinical & clinical Target Man: Target Man Present (Beatriz Flaquito BALDWIN) Accompanied by: Daughter Allergies amlodipine Allergy (Unknown, Verified 11/19/23 08:31) swelling metoprolol Allergy (Unknown, Verified 11/19/23 08:31) Unknown pravastatin Allergy (Unknown, Verified 11/19/23 08:31) Unknown simvastatin Allergy (Unknown, Verified 11/19/23 08:31) Unknown Post menopausal: Yes HPI Comments Details: Presenting with a history of left labial cyst of few days' duration that drained 2 days ago and completely resolved in addition the patient is complaining of bulge per vagina no associated symptoms , no vaginal bleeding or discharge or any other concerns PFSH Medical History Osteopenia Generalized anxiety disorder Pelvic pain Pelvic pain Urethral disorder, unspecified Vaginal mass Fibroids Finger avulsion Diverticulitis Osteoporosis Cognitive impairment Glaucoma Cardiomyopathy Hypercholesterolemia Complex renal cyst Restless leg syndrome Insomnia Hypertension Surgical History History of eye surgery Status post excision of lipoma Corneal transplant status History of cholecystectomy Family History Father Prostate cancer Mother No problems noted. Brother No problems noted. Sister Endometrial cancer Daughter No problems noted. Social History Housing: Apartment Alcohol intake: never Patient Tobacco Use Status: Never used Tobacco e-Cigarette/Vaping Use: Never Used Second Hand Smoke Exposure: No service: No Current occupational status: retired Gender identity: Female Cognitive needs: Yes Hearing needs: No Vision needs: Yes Review of Systems Const All systems reviewed & are unremarkable except as noted in HPI and below Physical Exam Vital Signs: Last Vital Signs BP 126/82 11/19/23 08:25 BMI result Body Mass Index 22.6 General: Yes no CVA tenderness External Female Exam: normal external appearance and normal appearance of the urethra Speculum Exam - Vagina: normal appearance of the vagina, normal palpation, no lesions, no masses and other (Cystocele central and bilateral paravaginal defect) Speculum Exam - Cervix: normal appearance of the cervix, normal palpation, no lesions, no masses, nontender and Other cervical findings present (Moderate uterine prolapse) Bimanual exam- vagina & uterus: normal bimanual exam, normal palpation, uterine size normal, normal palpation, uterine shape normal, No Cervical tenderness present and non-tender Bimanual Exam- Adnexa, other: normal adnexae Back/Spine/Pelvis Back: no CVA tenderness Assessment & Plan Assessment & Plan (1) Cystocele with prolapse: Comment: Central with paravaginal bilateral defect cystocele, moderate uterine prolapse Code(s): N81.4 - Uterovaginal prolapse, unspecified Category: Medical Plan: Discussed with the patient the finding on pelvic exam and options of treatment including expectant management, pessary or surgical management. The patient decided to proceed with expectant management will call if symptoms get worse. All questions answered, the patient verbalized understanding (2) Labial cyst: Comment: Resolved Code(s): N90.7 - Vulvar cyst Category: Medical Plan: Discussed with the patient the finding on pelvic exam showing normal bilateral labia with no evidence of cyst, instructions given the patient to call in case of recurrence of her labial cyst. All questions answered, the patient verbalized understanding and agreed with the plan. Coding Level of Care Code Est Pt Level 3 (53800) Diagnoses Cystocele with prolapse N81.4 Labial cyst N90.7
--- OUTSIDE RECORDS SUMMARY | 2023-11-24 06:26 | XMS_ITS | Continuity of Care Document ---
Author Organization [facility] Address [address] [place] [id number]- Care Team Providers [employer] Name Role Phone Po Haylee PATRICK Primary Care Physician Encounter [facility] Date(s): 01/24/21 - 02/23/21 [facility] [address] [place] [id number] [place] Allergies, Adverse Reactions, Alerts Substance Reaction Severity Status metoprolol confusion Active aspirin chest tightness Active pravastatin eye problem Active Miacalcin cause nasal allergy and nasal peeling Per sistent Severe Active Immunizations Given and Recorded Vaccine Date Status Refusal Reason influenza virus vaccine, inactivated 1 01/16/12 Gi navin influenza virus vaccine, inactivated 2 01/24/11 Gi navin influenza virus vaccine, inactivated 3 01/15/10 Gi navin influenza virus vaccine, inactivated 4 12/26/08 Gi navin influenza virus vaccine, inactivated 5 02/07/08 Gi navin influenza virus vaccine, inactivated 03/05/06 Give n pneumococcal 23-valent vaccine 6 11/14/10 Given hepatitis B adult vaccine 7 06/08/05 Given hepatitis B adult vaccine 8 01/13/05 Given hepatitis B adult vaccine 9 06/23/04 Given tetanus-diphtheria toxoids (Td) 10 10/03/02 Given 1Admin Note: ADMIN BY [facility] 2[facility] Note: [facility] 3Admin Note: FLUZONE 4Admin Note: VIS 11/13/2008 given by Deanna Hutson RN 5Admin Note: [id number] GIVEN RN 6Admin Note: VIS 10/01/2006 7Admin Note: GIVEN BY NURSE 8Admin Note: GIVEN BY NURSE 9Admin Note: GIVEN BY NURSE 10Admin Note: GIVEN BY NURSE Medications atorvastatin 10 mg oral tablet 1 tablet = 10 mg, TK 1 T PO QD Start Date: 01/03/20 Status: Ordered calcium-vitamin D 600 mg-400 intl units oral tablet 1 tablet, By Mouth, 2 times a day, # 60 tablet, 11 Refills, Maintenance, Tablet Start Date: 02/04/12 Status: Ordered Cosopt ophthalmic solution 1, drops, Eyes, Both, 2 times a day, 0, 0, 03/05/06 9:37:46, glaucoma, Print FLORIN Number, [id number], Constant Indicator Start Date: 03/05/06 Status: Ordered ferrous sulfate 325 mg oral tablet 1 tablet = 325 mg, By Mouth, Daily, 0 Refills, Maintenance, 07/01/20 8:32:00 EDT, Partial fill uponpatient request if the prescription is for a schedule II opioid drug. Start Date: 07/01/20 Status: Ordered Fish Oil oral capsule 2 capsule, By Mouth, Daily, 1000 mg, # 60 capsule, 11 Refills, Maintenance Start Date: 02/04/12 Status: Ordered Ibuprofen 600 mg, By Mouth, Every 6 hours, PRN, Refills 0, Maintenance, Pain , Mild, 07/01/20 8:33:00 EDT, Partial fill upon patient request if the prescription is for a schedule II opioid drug. Start Date: 07/01/20 Status: Ordered losartan 25 mg oral tablet 1 tablet = 25 mg, By Mouth, Daily, # 90 tablet, 3 Refills, Maintenance, 03/05/20 9:49:00 EST, Tablet, [facility] #[id number], 152.4, cm, 01/03/20 13:34:00 EDT, Height, 51, kg, 09/03/19 10:09:00 EDT, Dry Weight Start Date: 03/05/20 Status: Ordered Melatonin = 20 mg, By Mouth, Daily at bedtime, 0 Refills, Maintenance, 11/30/18 12:47:42 EDT Start Date: 11/30/18 Status: Ordered Multivitamin By Mouth, Daily, 0 Refills, Maintenance, 08/28/13 12:01:23 Start Date: 08/28/13 Status: Ordered PrednisoLONE Acetate 1% Ophth See Instructions, 1 drop left eye bid; given by optha, 0 Refills, Maintenance, Suspension Start Date: 07/29/11 Status: Ordered Suprep Bowel Prep Kit oral liquid See Instructions, Bottle 1: 5pm the night before Bottle 1: 6 hours before time of procedure Each bottle followed by two 16-ounce cups of water, # 1 kit, 0 Refills, Maintenance, 01/24/21 13:40:00 EDT,[facility] #[id number], Partial fill upon... Start Date: 01/24/21 Status: Ordered Problem List Condition Effective Dates Status Health Status Inform ant Acquired deformity of toe(Confirmed) 08/30/07 Active Cholecystectomy(Confirmed) 1 Active Corneal transplant(Confirmed) 2 Active Diverticulitis of colon(Confirmed) 3 04/10/12 Active Diverticulosis of sigmoid colon(Confirmed) 4 06/03/05 Active Epiretinal membrane, left eye(Confirmed) Active Frozen shoulder(Confirmed) 5 Active Glucose intolerance(Confirmed) 08/12/07 Active Hypercholesterolemia(Confirmed) 08/12/07 Active Internal hemorrhoids(Confirmed) 6 06/03/05 Active LBBB (left bundle branch block)(Confirmed) Active Osteoporosis(Confirmed) 7, 8 03/26/09 Active Overweight(Confirmed) Active Renal cyst(Confirmed) 9 04/10/12 Active Renal stone(Confirmed) 10 04/10/12 Active 12ry to cholelithiasis at [facility] in the 2cataract surgery on by Dr Mckinnon on 2002, compliactuion: residual vison is shadows 3acute midsigmoid diverticulitis by abd pelvic CT scan at [facility] colo by Robin Gonzalez M.D.. Internal hemorrhoids; Severe sigmoid diverticulosis; Solitary diminutive transverse colon polyp- tubular adenoma 5Shoulder Min 2 Views 08/10 Left shoulder. AP films with arm in internal and external rotation show no injury. No malalignment.Some cartilage calcification is seen about the opposing joint surfaces in the acromioclavicular joint. No evidence of the calcific tendinitis. Moderate osteoarthritis of acromioclavicular joint. Nothing acute. by colo by Robin Gonzalez M.D.. Internal hemorrhoids 7DEXA 04/13/11 DEXA normal AP spine -0.7 , osteopenia total hip - 1.1, osteoporosis femoral neck -2.7 8DEXA 03/26/09 normal AP lumbar spine -0.6 , normal total proximal femur -0.8 , osteopenia femoral neck -2.2 9Right renal cysts and renal stones by abd pelvic Ct scan 04/10/12 at [facility]. 10Right renal cysts and renal stones by abd pelvic Ct scan 04/10/12 at [facility]. Social History Social History Type Response Smoking Status Never smoker entered on: 06/09/16 Sex
--- OUTSIDE RECORDS SUMMARY | 2023-11-24 06:26 | XMS_ITS | Continuity of Care Document ---
Author Organization [facility] Address [address] [place] [address]- Care Team Providers Care Traffic Administrator Name Role Phone Po Haylee PATRICK Primary Care Physician Encounter [facility] R [id number] Date(s): 03/14/21 - 04/13/21 [facility] [address] [place] [address]- Attending Physician: Raghu Blackman Admitting Physician: Admtr, Ar8 Referring Physician: Admtr, Ar8 Allergies, Adverse Reactions, Alerts Substance Reaction Severity [...] 10 10/03/02 Given 1Admin Note: ADMIN BY [facility] 2Admin Note: ADMIN BY [facility] 3Admin Note: FLUZONE 4Admin Note: VIS 11/13/2008 given by Deanna Hutson RN 5Admin Note: [id number] GIVEN ADMCharley RN 6Admin Note: VIS 10/01/2006 7Admin Note: [...] 0, 03/05/06 9:37:46, glaucoma, Print FLORIN Number, [id number], Constant Indicator Start Date: 03/05/06 Status: Ordered [...] 3 Refills, Maintenance, 03/05/20 9:49:00 EST, Tablet, [facility] #[id number], 152.4, cm, 01/03/20 13:34:00 EDT, Height, 51, [...] 1 kit, 0 Refills, Maintenance, 01/24/21 13:40:00 EDT[id number], Partial fill upon... Start Date: 01/24/21 Status: [...] 10 04/10/12 Active 12ry to cholelithiasis at [facility] in the 2cataract surgery on [place] by Dr Mckinnon on 2002, compliactuion: residual vison is shadows 3acute midsigmoid diverticulitis by abd pelvic CT scan at [facility] colo by Robin Gonzalez M.D.. Internal hemorrhoids; [...] by abd pelvic Ct scan 04/10/[address] [facility]. 10Right renal cysts and renal stones by abd pelvic Ct scan 04/10/[address] [facility]. Social History Social History Type Response Smoking Status Never smoker entered on: 06/09/16 Sex
--- OUTSIDE RECORDS SUMMARY | 2023-11-24 06:26 | XMS_ITS | Continuity of Care Document ---
Author Organization [facility] Shaylee mica Address [address] [place] [address] [address] [place] [address]- Care Team Providers Care Marketing Technology Specialist Name Role Phone Po Haylee PATRICK Primary Care Physician [phone] Encounter [facility] Date(s): 04/14/21 - 05/14/21 [facility] [address] [place], [place] [address] Attending Physician: Raghu Blackman Admitting Physician: AdmtrRaghu Referring Physician: Admtr ArYoli Allergies, Adverse Reactions, Alerts Substance Reaction Severity [...] 10 10/03/02 Given 1Admin Note: ADMIN BY [facility] 2Admin Note: ADMIN BY [facility] 3Admin Note: FLUZONE 4Admin Note: VIS 11/13/2008 given by Deanna Hutson RN 5Admin Note: [id number] GIVEN ADMCharley HOOD 6Admin Note: VIS 10/01/2006 7Admin Note: GIVEN [...] 0, 03/05/06 9:37:46, glaucoma, Print FLORIN Number, [id number], Constant Indicator Start Date: 03/05/06 Status: Ordered [...] 3 Refills, Maintenance, 03/05/20 9:49:00 EST, Tablet, [facility] #[id number], 152.4, cm, 01/03/20 13:34:00 EDT, Height, 51, kg, 09/03/19 10:09:00 EDT, Dry Weight Start Date: 03/05/20 Status: Ordered Melatonin = 20 mg, By Mouth, Daily at bedtime, 0 Refills, Maintenance, 11/30/18 12:47:42 EDT Start Date: 11/30/18 Status: Ordered Multivitamin By Mouth, Daily, 0 Refills, Maintenance, 08/28/13 12:01:23 Start Date: 5/26/14 Status: Ordered PrednisoLONE Acetate 1% Ophth See [...] 1 kit, 0 Refills, Maintenance, 01/24/21 13:40:00 EDT,[id number], Partial fill upon... Start Date: 01/24/21 Status: [...] 10 04/10/12 Active 12ry to cholelithiasis at [facility] in the 2cataract surgery on [place] by Dr Mckinnon on 2002, compliactuion: residual vison is shadows 3acute midsigmoid diverticulitis by abd pelvic CT scan at [facility] colo by Robin Gonzalez M.D.. Internal [...] by abd pelvic Ct scan 04/10/12 at [facility]. 10Right renal cysts and renal stones by abd pelvic Ct scan 04/10/12 at [facility]. Social History Social History Type Response Smoking Status Never smoker entered on: 06/09/16 Sex
--- OUTSIDE RECORDS SUMMARY | 2023-11-24 06:26 | XMS_ITS | Continuity of Care Document ---
Author Organization [facility] Address [address] [place] [address]- Care Team Providers Care Touch Up Edger Name Role Phone Po Haylee PATRICK Primary Care Physician [place] [facility]22 - 02/21/22 [facility] [address] [place] [address] Allergies, Adverse Reactions, Alerts Substance Reaction Severity [...] 10 10/03/02 Given 1Admin Note: ADMIN BY [facility] 2Admin Note: ADMIN BY [facility] 3Admin Note: FLUZONE 4Admin Note: VIS 11/13/2008 given by Deanna Hutson RN 5Admin Note: [id number] GIVEN RN 6Admin Note: VIS 10/01/2006 7Admin [...] 0, 03/05/06 9:37:46, glaucoma, Print FLORIN Number, [id number], Constant Indicator Start Date: 03/05/06 Status: Ordered [...] Ordered losartan 25 mg oral tablet 1 tablet, By Mouth, Daily, # 90 tablet, 3 Refills, [facility] #[id number], 153, cm, 06/18/21 9:43:00 EDT, Height, 50, kg, 06/18/21 9:43:00 EDT, Dry Weight Start Date: 06/23/21 Status: Ordered Melatonin = 20 mg, By Mouth, Daily at bedtime, 0 Refills, Maintenance, 11/30/18 12:47:42 EDT Start Date: 11/30/18 Status: Ordered Multivitamin By Mouth, Daily, 0 Refills, Maintenance, 08/28/13 12:01:23 Start Date: 08/28/13 Status: Ordered PrednisoLONE Acetate 1% Ophth See Instructions, 1 drop left eye bid; given by optha, 0 Refills, Maintenance, Suspension Start Date: 07/29/11 Status: Ordered Smoothie Readi-Cat 2 oral suspension See Instructions, If scan before 12pm drink 1st drink night before prior to midnight & 2nd drink 90mins before.If scan after 12pm drink first drink before 8am and 90mins before.If scan after 4pm drink first drink 6hrs and 90mins before., # 2 each, 0 R... Start Date: 01/22/22 Status: Ordered Suprep Bowel Prep Kit oral liquid See Instructions, Bottle 1: 5pm the night before Bottle 1: 6 hours before time of procedure Each bottle followed by two 16-ounce cups of water, # 1 kit, 0 Refills, Maintenance, 01/24/21 13:40:00 EDT,[facility] #[id number], Partial fill upon... Start Date: 01/24/21 Status: Ordered Problem List Condition Confirmation Course Effective Dates Status Health Status Informant Acquired deformity of toe Confirmed 08/30/07 Active Cholecystectomy 1 Confirmed Active Corneal transplant 2 Confirmed Active Diverticulitis of colon 3 Confirmed 04/10/12 Active Diverticulosis of sigmoid colon 4 Confirmed 06/03/05 Active Epiretinal membrane, left eye Confirmed Active Frozen shoulder 5 Confirmed Active Glucose intolerance Confirmed 08/12/07 Active Hypercholesterolemia Confirmed 08/12/07 Active Internal hemorrhoids 6 Confirmed 06/03/05 Active LBBB (left bundle branch block) Confirmed Active Osteoporosis 7, 8 Confirmed 03/26/09 Active Overweight Confirmed Active Renal cyst 9 Confirmed 04/10/12 Active Renal stone 10 Confirmed 04/10/12 Active Blood transfusion declined because patient is Hindu Confirmed Active Fibroid uterus Confirmed Active 12ry to cholelithiasis at [facility] in the 2cataract surgery on [place] by Dr Mckinnon on 2002, compliactuion: residual vison is shadows 3acute midsigmoid diverticulitis by abd pelvic CT scan at [facility] colo by Robin Gonzalez M.D.. Internal [...] by abd pelvic Ct scan 04/10/12 at [facility]. 10Right renal cysts and renal stones by abd pelvic Ct scan 04/10/12 at [facility]. Social History Social History Type Response Smoking Status Never smoker entered on: 06/09/16 Sex Patient Care team information Care Team Personnel Name: Haylee Sanchez MD Position: Reference Physician Member Role: PCP Address: Address: [address] [place] [address]- Care Team Related Persons Name: RENETTA ALCALA Address: home [address] [place] [address] Name: KANU ALCALA Address: home [address] [address]
--- OUTSIDE RECORDS SUMMARY | 2023-11-24 06:26 | XMS_ITS | Continuity of Care Document ---
Author Organization [facility] Address [address] [place] [address]- Care Team Providers Care Parts Cataloguer Name Role Phone Po Haylee PATRICK Primary Care Physician En[place] [facility] [place] Date(s): 05/18/23 - 06/20/23 [facility] [address] [place] [address]- Attending Physician: Jun Rocha MD Allergies, Adverse Reactions, Alerts Substance Reaction Severity Status metoprolol confusion Active pravastatin eye problem Active Miacalcin cause nasal allergy and nasal peeling Per sistent Severe Active Immunizations Given and Recorded Vaccine Date Status Refusal Reason tetanus/diphtheria/pertussis, acel(Tdap) 07/31/22 Given influenza virus vaccine, inactivated 1 01/16/12 Gi [...] 10 10/03/02 Given 1Admin Note: ADMIN BY [facility] 2Admin Note: ADMIN BY [facility] 3Admin Note: FLUZONE 4Admin Note: VIS 11/13/2008 given by Deanna Hutson RN 5Admin Note: [id number] GIVEN ADM. HOOD 6Admin Note: VIS 10/01/2006 7Admin Note: GIVEN BY NURSE 8Admin Note: GIVEN BY NURSE 9Admin Note: GIVEN BY NURSE 10Admin Note: GIVEN BY NURSE Medications atorvastatin 10 mg oral tablet 1 tablet = 10 mg, TK 1 T PO QD Start Date: 01/03/20 Status: Ordered Cosopt ophthalmic solution 1, drops, Eyes, Both, 2 times a day, 0, 0, 03/05/06 9:37:46, glaucoma, Print FLORIN Number, [id number], Constant Indicator Start Date: 03/05/06 Status: Ordered losartan 25 mg oral tablet 1 tablet, By Mouth, Daily, # 90 tablet, 0 Refills, Maintenance, 06/15/23 13:20:00 EDT, [facility] #[id number], 148, cm, 01/29/23 11:01:00 EDT, Height, 53.3, kg, 07/31/22 21:23:00 EDT, Dry Weight Start Date: 06/15/23 Status: Ordered Problem List Condition Confirmation Course [...] Active Blood transfusion declined because patient is Anglican Confirmed Active Fibroid uterus Confirmed Active 12ry to cholelithiasis at [facility] in the 2cataract surgery on [place] by Dr Mckinnon on 2002, compliactuion: residual vison is shadows 3acute midsigmoid diverticulitis by abd pelvic CT scan at [facility] colo by Robin Gonzalez M.D.. Internal [...] by abd pelvic Ct scan 04/10/12 at [facility]. 10Right renal cysts and renal stones by abd pelvic Ct scan 04/10/12 at [facility]. Social History Social History Type Response Smoking Status Never smoker entered on: 06/09/16 Sex Patient Care team information Care Team Personnel Name: Haylee Sanchez MD Position: Reference Physician Member Role: PCP Address: Address: [address] [place] [address]- Care Team Related Persons Name: RENETTA ALCALA Address: home [address] [place] [address] Name: KANU ALCALA Address: home [address] [address]
--- OUTSIDE RECORDS SUMMARY | 2023-11-24 06:26 | XMS_ITS | Continuity of Care Document ---
Author Organization [facility] Address [address] [place] [address]- Care Team Providers Care Angular Developer Name Role Phone Po Haylee PATRICK Primary Care Physician [facility]counter [facility] Date(s): 07/25/21 - 08/24/21 [facility] [address] [place] [address]- [place] Allergies, Adverse Reactions, Alerts Substance Reaction [...] 10 10/03/02 Given 1Admin Note: ADMIN BY [facility] 2Admin Note: ADMIN BY [facility] 3Admin Note: FLUZONE 4Admin Note: VIS 11/13/2008 given by Deanna Hutson RN 5Admin Note: [id number] GIVEN RN 6Admin Note: VIS 10/01/2006 7Admin [...] 0, 03/05/06 9:37:46, glaucoma, Print FLORIN Number, [id number], Constant Indicator Start Date: 03/05/06 Status: Ordered [...] Mouth, Daily, # 90 tablet, 3 Refills, [facility] #[id number], 153, cm, 06/18/21 9:43:00 EDT, Height, 50, [...] 1 kit, 0 Refills, Maintenance, 01/24/21 13:40:00 EDT,[facility] #[id number], Partial fill upon... Start Date: 01/24/21 Status: [...] 04/10/12 Active Renal stone(Confirmed) 10 04/10/12 Active Fibroid uterus(Confirmed) Active 12ry to cholelithiasis at [facility] in the 2cataract surgery on by Dr Mckinnon on 2002, compliactuion: residual vison is shadows 3acute midsigmoid diverticulitis by abd pelvic CT scan at [facility] colo by Robin Gonzalez M.D.. Internal [...] pelvic Ct scan 04/10/12 at [facility]. 10Right renal cysts and renal stones by abd pelvic Ct scan 04/10/12 at [facility]. Social History Social History Type Response Smoking Status Never smoker entered on: 06/09/16 Sex
--- OUTSIDE RECORDS SUMMARY | 2023-11-24 06:26 | XMS_ITS | Continuity of Care Document ---
Author Organization [facility] Address [address], [address]t [place] [address]- Care Team Providers Care Hostess Party Sales Representative Name Role Phone Po Haylee PATRICK Primary Care Physician [phone] Encounter [facility] Date(s): 03/14/20 - 04/13/20 [facility] [address], [address]th [place] [address]- Allergies, Adverse Reactions, Alerts Substance Reaction Severity [...] 10 10/03/02 Given 1Admin Note: ADMIN BY [facility] 2Admin Note: ADMIN BY [facility] 3Admin Note: FLUZONE 4Admin Note: VIS 11/13/2008 given by Deanna Hutson RN 5Admin Note: [id number] GIVEN ADMCharley RN 6Admin Note: VIS 10/01/2006 [...] 0, 03/05/06 9:37:46, glaucoma, Print FLORIN Number, [id number], Constant Indicator Start Date: 03/05/06 Status: Ordered Fish Oil oral capsule 2 capsule, By Mouth, Daily, 1000 mg, # 60 capsule, 11 Refills, Maintenance Start Date: 02/04/12 Status: Ordered losartan 25 mg oral tablet 1 tablet = 25 mg, By Mouth, Daily, # 90 tablet, 3 Refills, Maintenance, 03/05/20 9:49:00 EST, Tablet, [facility] #[id number], 152.4, cm, 01/03/20 13:34:00 EDT, Height, 51, [...] Maintenance, Suspension Start Date: 07/29/11 Status: Ordered Problem List Condition Effective Dates [...] 10 04/10/12 Active 12ry to cholelithiasis at [facility] in the 2cataract surgery on [place] by Dr Mckinnon on 2002, compliactuion: residual vison is shadows 3acute midsigmoid diverticulitis by abd pelvic CT scan at [facility] colo by Robin Gonzalez M.D.. Internal [...] abd pelvic Ct scan 04/10/12 at [facility]. 10Right renal cysts and renal stones by abd pelvic Ct scan 04/10/12 at [facility]. Social History Social History Type Response Smoking Status Never smoker entered on: 06/09/16 Sex
--- OUTSIDE RECORDS SUMMARY | 2023-11-24 06:26 | XMS_ITS | Continuity of Care Document ---
Author Organization [facility] Address [address] [place] [address]- Care Team Providers Care Machinist Linotype Name Role Phone Haylee Sanchez MD Primary Care Physician [phone] [place] [facility] [place](s): 11/27/21 - 03/27/22 [facility] [address] [place] [id number] Attending Physician: Charito Sidhu MD Admitting Physician: Charito Sidhu MD Referring Physician: Haylee Sanchez MD Allergies, Adverse Reactions, Alerts Substance Reaction [...] 10 10/03/02 Given 1Admin Note: ADMIN BY [facility] 2Admin Note: ADMIN BY [facility] 3Admin Note: FLUZONE 4Admin Note: VIS 11/13/2008 given by Deanna Hutson RN 5Admin Note: [id number] GIVEN ADM. RN 6Admin Note: VIS 10/01/2006 7Admin Note: [...] 0, 03/05/06 9:37:46, glaucoma, Print FLORIN Number, [id number], Constant Indicator Start Date: 03/05/06 Status: Ordered [...] Mouth, Daily, # 90 tablet, 3 Refills, [facility] #[id number], 153, cm, 06/18/21 9:43:00 EDT, Height, 50, [...] 1 kit, 0 Refills, Maintenance, 01/24/21 13:40:00 EDT,[facility] #[id number], Partial fill upon... Start Date: 01/24/21 Status: [...] Active Blood transfusion declined because patient is Shinto Confirmed Active Fibroid uterus Confirmed Active 12ry to cholelithiasis at [facility] in the 2cataract surgery on [place] by Dr Mckinnon on 2002, compliactuion: residual vison is shadows 3acute midsigmoid diverticulitis by abd pelvic CT scan at [facility] colo by Robin Gonzalez M.D.. Internal [...] by abd pelvic Ct scan 04/10/12 at [facility]. 10Right renal cysts and renal stones by abd pelvic Ct scan 04/10/12 at [facility]. Social History Social History Type Response Smoking Status Never smoker entered on: 06/09/16 Sex Patient Care team information Care Team Personnel Name: Haylee Sanchez MD Position: Reference Physician Member Role: PCP Address: Address: [address] [place] [address]- Care Team Related Persons Name: RENETTA ALCALA Address: home [address] [place] [address] Name: KANU ALCALA Address: home [address] [address]
--- OUTSIDE RECORDS SUMMARY | 2023-11-24 06:26 | XMS_ITS | Continuity of Care Document ---
Author Organization [facility] Address [address] [place] [address]- Care Team Providers Care Student Services Advisor Name Role Phone Po Haylee PATRICK Primary Care Physician Encounter [facility] [place] Date(s): 11/13/19 - 12/13/19 [facility] [address] [place] [address] [facility] Allergies, Adverse Reactions, Alerts Substance Reaction Severity [...] 10 10/03/02 Given 1Admin Note: ADMIN BY [facility] 2Admin Note: ADMIN BY [facility] 3Admin Note: FLUZONE 4Admin Note: VIS 11/13/2008 given by Deanna Hutson RN 5Admin Note: [id number] GIVEN ADM. HOOD 6Admin Note: VIS 10/01/2006 7Admin Note: GIVEN BY NURSE 8Admin Note: GIVEN BY NURSE 9Admin Note: GIVEN BY NURSE 10Admin Note: GIVEN BY NURSE Medications aspirin 81 mg oral enteric coated tablet 1 tablet = 81 mg, By Mouth, Daily, with food, # 100 tablet, 3 Refills, Maintenance, 08/28/13 11:59:06, EC Tablet, 1 tablet By Mouth Daily,Instr:with food Start Date: 08/28/13 Status: Ordered calcium-vitamin D 600 mg-400 intl units oral tablet 1 tablet, By Mouth, 2 times a day, # 60 tablet, 11 Refills, Maintenance, Tablet Start Date: 02/04/12 Status: Ordered Cosopt ophthalmic solution 1, drops, Eyes, Both, 2 times a day, 0, 0, 03/05/06 9:37:46, glaucoma, Print FLORIN Number, [id number], Constant Indicator Start Date: 03/05/06 Status: Ordered Crestor 10 mg oral tablet 1 tablet = 10 mg, By Mouth, Daily, # 90 tablet, 0 Refills, Maintenance, 08/28/13 11:59:53, Tablet, 1 tablet By Mouth Daily Start Date: 08/28/13 Status: Ordered Fish Oil oral capsule 2 capsule, By Mouth, Daily, 1000 mg, # 60 capsule, 11 Refills, Maintenance Start Date: 02/04/12 Status: Ordered Melatonin = 20 mg, By [...] 10 04/10/12 Active 12ry to cholelithiasis at [facility] in the 2cataract surgery on [place] by Dr Mckinnon on 2002, compliactuion: residual vison is shadows 3acute midsigmoid diverticulitis by abd pelvic CT scan at [facility] 43 colo by Robin Gonzalez M.D.. Internal hemorrhoids; [...] by abd pelvic Ct scan 04/10/12 at [facility]. 10Right renal cysts and renal stones by abd pelvic Ct scan 04/10/12 at [facility]. Social History Social History Type Response Smoking Status Never smoker entered on: 06/09/16 Sex
--- OUTSIDE RECORDS SUMMARY | 2023-11-24 06:26 | XMS_ITS | Continuity of Care Document ---
Author Organization [facility] Address [address] [facility], [address]t [place] [address]- Care Team Providers Care Senior Label Specialist Name Role Phone Po Haylee PATRICK Primary Care Physician En[place] [facility] [place] Date(s): 10/09/19 - 11/08/19 [facility] [address], 4th [place] [address]- [facility] Attending Physician: Raghu Blackman Admitting Physician: Raghu Blackman Referring Physician: AdmtrRaghu Allergies, Adverse Reactions, Alerts Substance Reaction Severity [...] 10 10/03/02 Given 1Admin Note: [facility] 2Admin Note: ADMIN BY [facility] 3Admin Note: FLUZONE 4Admin Note: VIS 11/13/2008 given by Deanna Hutson RN 5Admin Note: [id number] GIVEN ADM. HOOD 6Admin Note: VIS 10/01/2006 [...] 0, 03/05/06 9:37:46, glaucoma, Print FLORIN Number, [id number], Constant Indicator Start Date: 03/05/06 Status: Ordered [...] 10 04/10/12 Active 12ry to cholelithiasis at [facility] in the 2cataract surgery on [place] by Dr Mckinnon on 2002, compliactuion: residual vison is shadows 3acute midsigmoid diverticulitis by abd pelvic CT scan at [facility] colo by Robin Gonzalez M.D.. Internal [...] by abd pelvic Ct scan 04/10/12 at [facility]. 10Right renal cysts and renal stones by abd pelvic Ct scan 04/10/12 at [facility]. Social History Social History Type Response Smoking Status Never smoker entered on: 06/09/16 Sex
--- OUTSIDE RECORDS SUMMARY | 2023-11-24 06:27 | XMS_ITS | Continuity of Care Document ---
Author Organization [facility] Address [address] [place] [address]- Care Team Providers Care Obiee Lead Developer Name Role Phone Po Haylee PATRICK Primary Care Physician Encounter [facility] [place] Date(s): 08/26/21 - 09/25/21 [facility] [address] [place] [id number] Allergies, Adverse Reactions, Alerts Substance Reaction Severity [...] 10 10/03/02 Given 1Admin Note: ADMIN BY [facility] 2Admin Note: ADMIN BY [facility] 3Admin Note: FLUZONE 4Admin Note: VIS 11/13/2008 given by Deanna Hutson RN 5Admin Note: [id number] GIVEN RN 6Admin Note: VIS 10/01/2006 7Admin [...] 0, 03/05/06 9:37:46, glaucoma, Print FLORIN Number, [id number], Constant Indicator Start Date: 03/05/06 Status: Ordered [...] Mouth, Daily, # 90 tablet, 3 Refills, [facility] #[id number], 153, cm, 06/18/21 9:43:00 EDT, Height, 50, [...] 1 kit, 0 Refills, Maintenance, 01/24/21 13:40:00 EDT[facility], Partial fill upon... Start Date: 01/24/21 Status: [...] 04/10/12 Active Renal stone(Confirmed) 10 04/10/12 Active Blood transfusion declined b ecause patient is Gnosticist(Confirmed) Active Fibroid uterus(Confirmed) Active 12ry to cholelithiasis at [facility] in the 2cataract surgery on [place] by Dr Mckinnon on 2002, compliactuion: residual vison is shadows 3acute midsigmoid diverticulitis by abd pelvic CT scan at [facility] colo by Robin Gonzalez M.D.. Internal [...] by abd pelvic Ct scan 04/10/12 at [facility]. 10Right renal cysts and renal stones by abd pelvic Ct scan 04/10/12 at [facility]. Social History Social History Type Response Smoking Status Never smoker entered on: 06/09/16 Sex
--- OUTSIDE RECORDS SUMMARY | 2023-11-24 06:27 | XMS_ITS | Continuity of Care Document ---
Author Organization [facility] Address [address] [place] [address]- Care Team Providers Care Tire Shop Manager Name Role Phone Po Haylee PATRICK Primary Care Physician [phone] Encounter [facility] [place] Date(s): 10/30/19 - 11/29/19 [facility] [address] [place] [address]- [facility] Allergies, Adverse Reactions, Alerts Substance Reaction Severity [...] 10 10/03/02 Given 1Admin Note: ADMIN BY [facility] 2Admin Note: [facility] 3Admin Note: FLUZONE 4Admin Note: VIS 11/13/2008 given by Deanna Hutson RN 5Admin Note: [id number] GIVEN ADM. HOOD 6Admin Note: VIS 10/01/2006 [...] 0, 03/05/06 9:37:46, glaucoma, Print FLORIN Number, [id number], Constant Indicator Start Date: 03/05/06 Status: Ordered [...] 10 04/10/12 Active 12ry to cholelithiasis at [facility] in the 2cataract surgery on [place] by Dr Mckinnon on 2002, compliactuion: residual vison is shadows 3acute midsigmoid diverticulitis by abd pelvic CT scan at [facility] 43 colo by Robin Gonzalez M.D.. Internal [...] by abd pelvic Ct scan 04/10/12 at [facility]. 10Right renal cysts and renal stones by abd pelvic Ct scan 04/10/12 at [facility]. Social History Social History Type Response Smoking Status Never smoker entered on: 06/09/16 Sex
--- OUTSIDE RECORDS SUMMARY | 2023-11-24 06:27 | XMS_ITS | Continuity of Care Document ---
Author Organization [facility] Address [address] [place] [address]- Care Team Providers Care Cutter Grind Tool Technician Name Role Phone Po Haylee PATRICK Primary Care Physician Encounter [facility] Date(s): 03/26/21 - 05/01/[address] [address] Attending Physician: Not on Staff, Attending MD Referring Physician: Not on Staff, Referring MD Allergies, Adverse Reactions, Alerts Substance Reaction [...] 10 10/03/02 Given 1Admin Note: ADMIN BY [facility] 2Admin Note: ADMIN BY [facility] 3Admin Note: FLUZONE 4Admin Note: VIS 11/13/2008 given by Deanna Hutson RN 5Admin Note: [id number] GIVEN RN 6Admin Note: VIS 10/01/2006 7Admin [...] 0, 03/05/06 9:37:46, glaucoma, Print FLORIN Number, [id number], Constant Indicator Start Date: 03/05/06 Status: Ordered [...] 3 Refills, Maintenance, 03/05/20 9:49:00 EST, Tablet, [facility] #[id number], 152.4, cm, 01/03/20 13:34:00 EDT, Height, 51, [...] 1 kit, 0 Refills, Maintenance, 01/24/21 13:40:00 EDT,[facility] #[id number], Partial fill upon... Start Date: 01/24/21 Status: [...] 10 04/10/12 Active 12ry to cholelithiasis at [facility] in the 2cataract surgery on by Dr Mckinnon on 2002, compliactuion: residual vison is shadows 3acute midsigmoid diverticulitis by abd pelvic CT scan at [facility] colo by Robin Gonzalez M.D.. Internal [...] by abd pelvic Ct scan 04/10/12 at [facility]. 10Right renal cysts and renal stones by abd pelvic Ct scan 04/10/12 at [facility]. Social History Social History Type Response Smoking Status Never smoker entered on: 06/09/16 Sex
--- OUTSIDE RECORDS SUMMARY | 2023-11-24 06:27 | XMS_ITS | Continuity of Care Document ---
Author Organization [facility] Address [address] [place] [address]- Care Team Providers Care Distribution Transformer Assembler Name Role Phone Po Haylee PATRICK Primary Care Physician Encounter [facility] Date(s): 06/18/21 - 06/18/[address] [address]- Discharge Disposition: A-D/C Home Attending Physician: Richar Brannon MD Admitting Physician: Richar Brannon MD Referring Physician: Richar Brannon MD Allergies, Adverse Reactions, Alerts Substance Reaction [...] 10 10/03/02 Given 1Admin Note: ADMIN BY [facility] 2Admin Note: ADMIN BY [facility] 3Admin Note: FLUZONE 4Admin Note: VIS 11/13/2008 given by Deanna Hutson RN 5Admin Note: [id number] GIVEN ADM. RN 6Admin Note: VIS 10/01/2006 [...] 0, 03/05/06 9:37:46, glaucoma, Print FLORIN Number, [id number], Constant Indicator Start Date: 03/05/06 Status: Ordered [...] 3 Refills, Maintenance, 03/05/20 9:49:00 EST, Tablet, [facility] #[id number], 152.4, cm, 01/03/20 13:34:00 EDT, Height, 51, [...] 1 kit, 0 Refills, Maintenance, 01/24/21 13:40:00 EDT,[facility] #[id number], Partial fill upon... Start Date: 01/24/21 Status: [...] 10 04/10/12 Active 12ry to cholelithiasis at [facility] in the 2cataract surgery on [place] by Dr Mckinnon on 2002, compliactuion: residual vison is shadows 3acute midsigmoid diverticulitis by abd pelvic CT scan at [facility] colo by Robin Gonzalez M.D.. [...] by abd pelvic Ct scan 04/10/12 at [facility]. 10Right renal cysts and renal stones by abd pelvic Ct scan 04/10/12 at [facility]. Vital Signs Most recent to oldest [Reference Range]: 1 2 3 Height 153 cm (06/18/21 9:28 AM) Oxygen Saturation [94-100 %] 99 % (06/18/21 11:25 AM) 100 % (06/18/21 11:19 AM) 98 % (06/18/21 11:09 AM) Pulse Rate [55-90 bpm] 69 bpm (06/18/21 9:28 AM) Blood Pressure [90-138/55-84 mm Hg] 151/71mm Hg *H* (06/18/21 11:40 AM) 132/71mm Hg (06/18/21 11:30 AM) 124/68mm Hg (06/18/21 11:25 AM) Respiratory Rate [16-30 br/min] 23 br/min (06/18/21 11:40 AM) 17 br/min (06/18/21 11:30 AM) 21 br/min (06/18/21 11:25 AM) Temperature [96.8-100.4 DegF] 97.6 DegF (06/18/21 11:19 AM) 97.8 DegF (06/18/21 9:28 AM) Mode of Delivery (Oxygen) Room air (06/18/21 11:25 AM) Room air (06/18/21 11:19 AM) Room air (06/18/21 11:09 AM) Blood pressure sites Arm, left (06/18/21 11:40 AM) Arm, left (06/18/21 11:30 AM) Arm, left (06/18/21 11:25 AM) Temperature Route Temporal (06/18/21 11:19 AM) Temporal (06/18/21 9:28 AM) Dry Weight 50 kg (06/18/21 9:28 AM) Dry Weight Obtained Via Patient/family s tated (06/18/21 9:28 AM) Social History Social History Type Response Smoking Status Never smoker entered on: 06/09/16 Sex
--- OUTSIDE RECORDS SUMMARY | 2023-11-24 06:27 | XMS_ITS | Continuity of Care Document ---
Author Organization [facility] Address [address], [address] [place] [address]- Care Team Providers Care Damage Cutter Name Role Phone Po Haylee PATRICK Primary Care Physician [facility] Date(s): 09/11/19 - 10/11/19 [facility] [address], [address] [place] [address]- [facility] Attending Physician: Raghu Blackman Admitting Physician: AdmtrRaghu Referring Physician: Admtr, Ar8 Allergies, Adverse Reactions, [...] 10 10/03/02 Given 1Admin Note: ADMIN BY [facility] 2Admin Note: ADMIN BY [facility] 3Admin Note: FLUZONE 4Admin Note: VIS 11/13/2008 given by Deanna Hutson RN 5Admin Note: [id number] GIVEN ADMCharley HOOD 6Admin Note: VIS 10/01/2006 [...] 0, 03/05/06 9:37:46, glaucoma, Print FLORIN Number, [id number], Constant Indicator Start Date: 03/05/06 Status: Ordered [...] 10 04/10/12 Active 12ry to cholelithiasis at [facility] in the 2cataract surgery on [place] by Dr Mckinnon on 2002, compliactuion: residual vison is shadows 3acute midsigmoid diverticulitis by abd pelvic CT scan at [facility] colo by Robin Gonzalez M.D.. Internal hemorrhoids; [...] by abd pelvic Ct scan 04/10/12 at [facility]. 10Right renal cysts and renal stones by abd pelvic Ct scan 04/10/12 at [facility]. Social History Social History Type Response Smoking Status Never smoker entered on: 06/09/16 Sex
--- OUTSIDE RECORDS SUMMARY | 2023-11-24 06:27 | XMS_ITS | Continuity of Care Document ---
Author Organization [facility] Address [address] [place] [address]- Care Team Providers Care Python Developer Name Role Phone Haylee Sanchez MD Primary Care Physician Encounter [facility] [place] Date(s): 03/30/19 - 07/28/19 [facility] [address] [place] [address] [facility] Attending Physician: Nnamdi Humphrey MD Admitting Physician: Nnamdi Humphrey MD Referring Physician: Haylee Sanchez MD Allergies, [...] 10 10/03/02 Given 1Admin Note: ADMIN BY [facility] 2Admin Note: ADMIN BY [facility] 3Admin Note: FLUZONE 4Admin Note: VIS 11/13/2008 given by Deanna Hutson RN 5Admin Note: [id number] GIVEN ADM. RN 6Admin Note: VIS 10/01/2006 [...] 0, 03/05/06 9:37:46, glaucoma, Print FLORIN Number, [id number], Constant Indicator Start Date: 03/05/06 Status: Ordered [...] 08/28/13 12:01:23 Start Date: 08/28/13 Status: Ordered NuLYTELY with Flavor Packs oral powder for reconstitution See Instructions, 240 mL By Mouth Every 15 minutes, # 4,000 mL, 0 Refills, Maintenance, 05/11/19 12:48:00 EST, [facility] [address], 240 mL By Mouth Every 15 minutes, 152, cm, 05/11/19 12:24:00 EST, Height, 50, kg, 12/12/18 17:03:00 EDT, Dry Weight Start Date: 05/11/19 Status: Ordered PrednisoLONE Acetate 1% Ophth See [...] 10 04/10/12 Active 12ry to cholelithiasis at [facility] in the 2cataract surgery on by Dr Mckinnon on 2002, compliactuion: residual vison is shadows 3acute midsigmoid diverticulitis by abd pelvic CT scan at [facility] colo by Robin Gonzalez M.D.. Internal [...] by abd pelvic Ct scan 04/10/[address] [facility]. 10Right renal cysts and renal stones by abd pelvic Ct scan 04/10/[address] [facility]. Social History Social History Type Response Smoking Status Never smoker entered on: 06/09/16 Sex
--- OUTSIDE RECORDS SUMMARY | 2023-11-24 06:27 | XMS_ITS | Continuity of Care Document ---
Author Organization [facility] Address [address] [facility], 4t [place] [address]- Care Team Providers Care 21 Dealer Name Role Phone Haylee Sanchez MD Primary Care Physician Encounter [facility] Date(s): 04/27/20 - 12/22/20 [facility] [address], [address] [place] [address]- Attending Physician: Cristopher PATRICK, Emma Beavers Referring Physician: Haylee Sanchez MD Allergies, Adverse [...] 10 10/03/02 Given 1Admin Note: ADMIN BY [facility] 2Admin Note: [facility] 3Admin Note: FLUZONE 4Admin Note: VIS 11/13/2008 given by Deanna Hutson RN 5Admin Note: [id number] GIVEN ADM. HOOD 6Admin Note: VIS 10/01/2006 [...] 0, 03/05/06 9:37:46, glaucoma, Print FLORIN Number, [id number], Constant Indicator Start Date: 03/05/06 Status: Ordered [...] 3 Refills, Maintenance, 03/05/20 9:49:00 EST, Tablet, [facility] #[id number], 152.4, cm, 01/03/20 13:34:00 EDT, Height, 51, [...] 10 04/10/12 Active 12ry to cholelithiasis at [facility] in the 2cataract surgery on [place] by Dr Mckinnon on 2002, compliactuion: residual vison is shadows 3acute midsigmoid diverticulitis by abd pelvic CT scan at [facility] 43 colo by Robin Gonzalez M.D.. Internal [...] by abd pelvic Ct scan 04/10/12 at [facility]. 10Right renal cysts and renal stones by abd pelvic Ct scan 04/10/12 at [facility]. Social History Social History Type Response Smoking Status Never smoker entered on: 06/09/16 Sex
--- OUTSIDE RECORDS SUMMARY | 2023-11-24 06:27 | XMS_ITS | Continuity of Care Document ---
Author Organization [facility] Address [address] [place] [address]- Care Team Providers Care Donor Services Specialist Name Role Phone Po Haylee PATRICK Primary Care Physician Encounter [facility] Date(s): 01/29/23 - 02/28/23 [facility] [address] [place] [address] Attending Physician: Raghu Blackman Admitting Physician: AdmtrRaghu Referring Physician: Admtr Ar8 Allergies, Adverse Reactions, Alerts Substance Reaction [...] 10 10/03/02 Given 1Admin Note: ADMIN BY [facility] 2Admin Note: ADMIN BY [facility] 3Admin Note: FLUZONE 4Admin Note: VIS 11/13/2008 given by S Haresh RN 5Admin Note: [id number] GIVEN ADM. RN 6Admin Note: VIS 10/01/2006 [...] 0, 03/05/06 9:37:46, glaucoma, Print FLORIN Number, [id number], Constant Indicator Start Date: 03/05/06 Status: Ordered losartan 25 mg oral tablet 1 tablet, By Mouth, Daily, # 90 tablet, 0 Refills, Maintenance, 11/24/22 9:59:00 EDT, [facility] #[id number], 148, cm, 07/31/22 22:34:00 EDT, Height, 53.3, kg, 07/31/22 21:23:00 EDT, Dry Weight Start Date: 11/24/22 Status: Ordered Problem List Condition Confirmation Course [...] Active Blood transfusion declined because patient is Yazidi Confirmed Active Fibroid uterus Confirmed Active 12ry to cholelithiasis at [facility] in the 2cataract surgery on [place] by Dr Mckinnon on 2002, compliactuion: residual vison is shadows 3acute midsigmoid diverticulitis by abd pelvic CT scan at [facility] colo by Robin Gonzalez M.D.. Internal [...] by abd pelvic Ct scan 04/10/12 at [facility]. 10Right renal cysts and renal stones by abd pelvic Ct scan 04/10/12 at [facility]. Social History Social History Type Response Smoking Status Never smoker entered on: 06/09/16 Sex Patient Care team information Care Team Personnel Name: Haylee Sanchez MD Position: Reference Physician Member Role: PCP Address: Address: [address] [place] [address]- Care Team Related Persons Name: RENETTA ALCALA Address: home [address] [place] [address] Name: KANU ALCALA Address: home [address] [address]
--- OUTSIDE RECORDS SUMMARY | 2023-11-24 06:27 | XMS_ITS | Continuity of Care Document ---
Author Organization [facility] Address [address] [facility] [facility], 4t [place] [address]- Care Team Providers Care Accounting Assistant Name Role Phone Po Haylee PATRICK Primary Care Physician En[place] [facility] Date(s): 03/08/20 - 03/15/20 [facility] [address], 4th [place] [address]- Attending Physician: Jaylan PATRICK, Jose Mustafa Allergies, Adverse Reactions, Alerts Substance Reaction Severity [...] 10 10/03/02 Given 1Admin Note: ADMIN BY [facility] 2Admin Note: ADMIN BY [facility] 3Admin Note: FLUZONE 4Admin Note: VIS 11/13/2008 given by Deanna Hutson RN 5Admin Note: [id number] GIVEN RN 6Admin Note: VIS 10/01/2006 7Admin [...] Daily,Instr:with food Start Date: 08/28/13 Status: Ordered atorvastatin 10 mg oral tablet 1 tablet [...] 0, 03/05/06 9:37:46, glaucoma, Print FLORIN Number, [id number], Constant Indicator Start Date: 03/05/06 Status: Ordered Fish Oil oral capsule 2 capsule, By Mouth, Daily, 1000 mg, # 60 capsule, 11 Refills, Maintenance Start Date: 02/04/12 Status: Ordered losartan 25 mg oral tablet 1 tablet = 25 mg, By Mouth, Daily, # 90 tablet, 3 Refills, Maintenance, 03/05/20 9:49:00 EST, Tablet, [facility] #[id number], 152.4, cm, 01/03/20 13:34:00 EDT, Height, 51, [...] 10 04/10/12 Active 12ry to cholelithiasis at [facility] in the 2cataract surgery on by Dr Mckinnon on 2002, compliactuion: residual vison is shadows 3acute midsigmoid diverticulitis by abd pelvic CT scan at [facility] colo by Robin Gonzalez M.D.. Internal [...] abd pelvic Ct scan 04/10/12 at [facility]. 10Right renal cysts and renal stones by abd pelvic Ct scan 04/10/12 at [facility]. Vital Signs Most recent to oldest [Reference Range]: 1 Height 152.4 cm (03/08/20 11:32 AM) Weight 47.27 kg (03/08/20 11:32 AM) Body Mass Index [18.5-24.99] 20.35 (03/08/20 11:32 AM) Blood Pressure [90-138/55-84 mm Hg] 92/6 2mm Hg (03/08/20 11:32 AM) Blood pressure sites Arm, left (03/08/20 11:32 AM) Weight Obtained Via Standing scale (03/08/20 11:32 AM) Social History Social History Type Response Smoking Status Never smoker entered on: 06/09/16 Sex
--- OUTSIDE RECORDS SUMMARY | 2023-11-24 06:27 | XMS_ITS | Continuity of Care Document ---
Author Organization [facility] Address [address] [place] [address]- Care Team Providers Care General Passenger Agent Name Role Phone Haylee Sanchez MD Primary Care Physician [place] [facility] [place] 10/05/19 - 02/02/20 [facility] [address] [place] [address] [facility] Attending Physician: Nnamdi Humphrey MD Admitting Physician: [...] 10 10/03/02 Given 1Admin Note: ADMIN BY [facility] 2Admin Note: ADMIN BY [facility] 3Admin Note: FLUZONE 4Admin Note: VIS 11/13/2008 given by Deanna Hutson RN 5Admin Note: [id number] GIVEN ADM. RN 6Admin Note: VIS 10/01/2006 [...] 0, 03/05/06 9:37:46, glaucoma, Print FLORIN Number, [id number], Constant Indicator Start Date: 03/05/06 Status: Ordered Fish Oil oral capsule 2 capsule, By Mouth, Daily, 1000 mg, # 60 capsule, 11 Refills, Maintenance Start Date: 02/04/12 Status: Ordered losartan 25 mg oral tablet 1 tablet = 25 mg, By Mouth, Daily, TAKE 1 TABLET BY MOUTH ONCE DAILY., # 90 tablet, 3 Refills, Maintenance, 01/03/20 13:48:00 EDT, Tablet, [facility] #[id number], 152.4, cm, 01/03/20 13:34:00 EDT, Height, 51, kg, 09/03/19 10:09:00 EDT, Dry Weight Start Date: 01/03/20 Status: Ordered Melatonin = 20 mg, By [...] 10 04/10/12 Active 12ry to cholelithiasis at [facility] in the 2cataract surgery on by Dr Mckinnon on 2002, compliactuion: residual vison is shadows 3acute midsigmoid diverticulitis by abd pelvic CT scan at [facility] colo by Robin Gonzalez M.D.. Internal [...] by abd pelvic Ct scan 04/10/12 at [facility]. 10Right renal cysts and renal stones by abd pelvic Ct scan 04/10/12 at [facility]. Social History Social History Type Response Smoking Status Never smoker entered on: 06/09/16 Sex
--- OUTSIDE RECORDS SUMMARY | 2023-11-24 06:27 | XMS_ITS | Continuity of Care Document ---
Author Organization [facility] Address [address] [place] [address]- Care Team Providers Care Egg Separator Name Role Phone Po Haylee PATRICK Primary Care Physician Encounter [facility] Date(s): 02/03/21 - 05/10/[address] [address]- Attending Physician: Richar Brannon MD Admitting Physician: Richar Brannon MD Allergies, Adverse Reactions, [...] 10 10/03/02 Given 1Admin Note: ADMIN BY [facility] 2Admin Note: ADMIN BY [facility] 3Admin Note: FLUZONE 4Admin Note: VIS 11/13/2008 given by Deanna Hutson RN 5Admin Note: [id number] GIVEN ADMCharley RN 6Admin Note: VIS 10/01/2006 [...] 0, 03/05/06 9:37:46, glaucoma, Print FLORIN Number, [id number], Constant Indicator Start Date: 03/05/06 Status: Ordered [...] 3 Refills, Maintenance, 03/05/20 9:49:00 EST, Tablet, [facility] #[id number], 152.4, cm, 01/03/20 13:34:00 EDT, Height, 51, [...] 1 kit, 0 Refills, Maintenance, 01/24/21 13:40:00 EDT,[facility] #[id number], Partial fill upon... Start Date: 01/24/21 Status: [...] 10 04/10/12 Active 12ry to cholelithiasis at [facility] in the 2cataract surgery on by Dr Mckinnon on 2002, compliactuion: residual vison is shadows 3acute midsigmoid diverticulitis by abd pelvic CT scan at [facility] colo by Robin Gonzalez M.D.. Internal hemorrhoids; [...] by abd pelvic Ct scan 04/10/12 at [facility]. 10Right renal cysts and renal stones by abd pelvic Ct scan 04/10/12 at [facility]. Social History Social History Type Response Smoking Status Never smoker entered on: 06/09/16 Sex
--- OUTSIDE RECORDS SUMMARY | 2023-11-24 06:27 | XMS_ITS | Continuity of Care Document ---
Author Organization [facility] Address [address] [place] [address]- Care Team Providers Care Image Scientist Name Role Phone Po Haylee PATRICK Primary Care Physician Encounter [facility] Date(s): 05/26/21 - 06/25/21 [facility] [address] [place], [place] [address] Attending Physician: Yehuda, Raghu Admitting Physician: Admtr, Ar8 Referring Physician: Admtr, [...] 10 10/03/02 Given 1Admin Note: ADMIN BY [facility] 2Admin Note: ADMIN BY [facility] 3Admin Note: FLUZONE 4Admin Note: VIS 11/13/2008 given by Deanna Hutson RN 5Admin Note: [id number] GIVEN ADMCharley HOOD 6Admin Note: VIS 10/01/2006 [...] 0, 03/05/06 9:37:46, glaucoma, Print FLORIN Number, [id number], Constant Indicator Start Date: 03/05/06 Status: Ordered [...] Mouth, Daily, # 90 tablet, 3 Refills, [facility] #[id number], 153, cm, 06/18/21 9:43:00 EDT, Height, 50, [...] 1 kit, 0 Refills, Maintenance, 01/24/21 13:40:00 EDT[id number], Partial fill upon... Start Date: 01/24/21 Status: [...] 10 04/10/12 Active 12ry to cholelithiasis at [facility] in the 2cataract surgery on [place] by Dr Mckinnon on 2002, compliactuion: residual vison is shadows 3acute midsigmoid diverticulitis by abd pelvic CT scan at [facility] colo by Robin Gonzalez M.D.. [...] by abd pelvic Ct scan 04/10/[address] [facility]. 10Right renal cysts and renal stones by abd pelvic Ct scan 04/10/[address] [facility]. Social History Social History Type Response Smoking Status Never smoker entered on: 06/09/16 Sex
--- OUTSIDE RECORDS SUMMARY | 2023-11-24 06:27 | XMS_ITS | Continuity of Care Document ---
Author Organization [facility] Address [address] [place] [address]- Care Team Providers Care Welder Manufacture Name Role Phone Haylee Sanchez MD Primary Care Physician [place] [facility] [place] 03[place]20 - 05/12/20 [facility] [address] [place] [address] Attending Physician: Nnamdi Humphrey MD Admitting Physician: [...] 10 10/03/02 Given 1Admin Note: ADMIN BY [facility] 2Admin Note: ADMIN BY [facility] 3Admin Note: FLUZONE 4Admin Note: VIS 11/13/2008 given by Deanna Hutson RN 5Admin Note: [id number] GIVEN ADM. RN 6Admin Note: VIS 10/01/2006 [...] 0, 03/05/06 9:37:46, glaucoma, Print FLORIN Number, [id number], Constant Indicator Start Date: 03/05/06 Status: Ordered Fish Oil oral capsule 2 capsule, By Mouth, Daily, 1000 mg, # 60 capsule, 11 Refills, Maintenance Start Date: 02/04/12 Status: Ordered losartan 25 mg oral tablet 1 tablet = 25 mg, By Mouth, Daily, # 90 tablet, 3 Refills, Maintenance, 03/05/20 9:49:00 EST, Tablet, [facility] #[id number], 152.4, cm, 01/03/20 13:34:00 EDT, Height, 51, [...] 10 04/10/12 Active 12ry to cholelithiasis at [facility] in the 2cataract surgery on [place] by Dr Mckinnon on 2002, compliactuion: residual vison is shadows 3acute midsigmoid diverticulitis by abd pelvic CT scan at [facility] colo by Robin Gonzalez M.D.. Internal [...] by abd pelvic Ct scan 04/10/12 at [facility]. 10Right renal cysts and renal stones by abd pelvic Ct scan 04/10/12 at [facility]. Social History Social History Type Response Smoking Status Never smoker entered on: 06/09/16 Sex
--- OUTSIDE RECORDS SUMMARY | 2023-11-24 06:27 | XMS_ITS | Continuity of Care Document ---
Author Organization [facility] RENTAL COUNTER CLERK Oncolog y Address [address] [place] [address]- Care Team Providers Care Online User Experience Strategist Name Role Phone Po Haylee PATRICK Primary Care Physician Encounter [facility] [place] Date(s): 11/10/21 - 12/10/21 [facility] RENTAL COUNTER CLERK Oncology [address] [place] [id number] Allergies, Adverse Reactions, Alerts Substance [...] 10 10/03/02 Given 1Admin Note: ADMIN BY [facility] 2Admin Note: ADMIN BY [facility] 3Admin Note: FLUZONE 4Admin Note: VIS 11/13/2008 given by Deanna Hutson RN 5Admin Note: [id number] GIVEN RN 6Admin Note: VIS 10/01/2006 7Admin [...] 0, 03/05/06 9:37:46, glaucoma, Print FLORIN Number, [id number], Constant Indicator Start Date: 03/05/06 Status: Ordered [...] Mouth, Daily, # 90 tablet, 3 Refills, [facility][id number], 153, cm, 06/18/21 9:43:00 EDT, Height, 50, [...] 1 kit, 0 Refills, Maintenance, 01/24/21 13:40:00 EDT,[facility][id number], Partial fill upon... Start Date: 01/24/21 Status: [...] Blood transfusion declined b ecause patient is Moravian(Confirmed) Active Fibroid uterus(Confirmed) Active 12ry to cholelithiasis at [facility] in the 2cataract surgery on [place] by Dr Mckinnon on 2002, compliactuion: residual vison is shadows 3acute midsigmoid diverticulitis by abd pelvic CT scan at [facility] colo by Robin Gonzalez M.D.. Internal hemorrhoids; [...] pelvic Ct scan 04/10/12 at [facility] 10Right renal cysts and renal stones by abd pelvic Ct scan 04/10/12 at [facility] Social History Social History Type Response Smoking Status Never smoker entered on: 06/09/16 Sex Care Team Personnel Name: Haylee Sanchez MD Address: [address] [place] [phone]
--- OUTSIDE RECORDS SUMMARY | 2023-11-24 06:27 | XMS_ITS | Continuity of Care Document ---
Author Organization [facility] Mary freeman's Address [address], [address] [place] [address]- Care Team Providers Care Cashier Payments Received Name Role Phone Po aHylee PATRICK Primary Care Physician Encounter [facility] Date(s): 11/22/20 - 12/22/20 [facility] [address], [address] [place], [place] [address] Attending Physician: Raghu Blackman Admitting Physician: AdmtrRaghu Referring Physician: [id number] Allergies, Adverse Reactions, Alerts Substance Reaction Severity [...] 10 10/03/02 Given 1Admin Note: ADMIN BY [facility] 2Admin Note: [facility] 3Admin Note: FLUZONE 4Admin Note: VIS 11/13/2008 given by Deanna Hutson RN 5Admin Note: [id number] GIVEN ADM. HOOD 6Admin Note: VIS 10/01/2006 [...] 0, 03/05/06 9:37:46, glaucoma, Print FLORIN Number, [id number], Constant Indicator Start Date: 03/05/06 Status: Ordered [...] 3 Refills, Maintenance, 03/05/20 9:49:00 EST, Tablet, [id number], 152.4, cm, 01/03/20 13:34:00 EDT, Height, 51, [...] 10 04/10/12 Active 12ry to cholelithiasis at [facility] in the 2cataract surgery on by Dr Mckinnon on 2002, compliactuion: residual vison is shadows 3acute midsigmoid diverticulitis by abd pelvic CT scan at [facility] colo by Robin Gonzalez M.D.. [...] by abd pelvic Ct scan 04/10/12 at [facility]. 10Right renal cysts and renal stones by abd pelvic Ct scan 04/10/12 at [facility]. Social History Social History Type Response Smoking Status Never smoker entered on: 06/09/16 Sex
--- OUTSIDE RECORDS SUMMARY | 2023-11-24 06:27 | XMS_ITS | Continuity of Care Document ---
Author Organization [facility] SUCTION PLATE ROLLER HAND Oncolog y Address [address] [place] [address]- Care Team Providers Care Structural Drafter Name Role Phone Haylee Sanchez MD Primary Care Physician Encounter [facility] Date(s): 11/14/21 - 01/18/22 [facility] SUCTION PLATE ROLLER HAND Oncology [address] [place] [id number] Attending Physician: Charito Sidhu MD Admitting [...] 10 10/03/02 Given 1Admin Note: ADMIN BY [facility] 2Admin Note: ADMIN BY [facility] 3Admin Note: FLUZONE 4Admin Note: VIS 11/13/2008 given by Deanna Hutson RN 5Admin Note: [id number] GIVEN ADM. RN 6Admin Note: VIS 10/01/2006 [...] 0, 03/05/06 9:37:46, glaucoma, Print FLORIN Number, [id number], Constant Indicator Start Date: 03/05/06 Status: Ordered [...] Mouth, Daily, # 90 tablet, 3 Refills, [facility][id number], 153, cm, 06/18/21 9:43:00 EDT, Height, 50, [...] 1 kit, 0 Refills, Maintenance, 01/24/21 13:40:00 EDT,[id number], Partial fill upon... Start Date: 01/24/21 Status: [...] Active Blood transfusion declined because patient is Alevism Confirmed Active Fibroid uterus Confirmed Active 12ry to cholelithiasis at [facility] in the 2cataract surgery on [place] by Dr Mckinnon on 2002, compliactuion: residual vison is shadows 3acute midsigmoid diverticulitis by abd pelvic CT scan at [facility] colo by Robin Gonzalez M.D.. [...] by abd pelvic Ct scan 04/10/12 at [facility]. 10Right renal cysts and renal stones by abd pelvic Ct scan 04/10/12 at [facility]. Social History Social History Type Response Smoking Status Never smoker entered on: 06/09/16 Sex Patient Care team information Personnel Name: Haylee Sanchez MD Address: Address: [address] [place] [id number]
--- OUTSIDE RECORDS SUMMARY | 2023-11-24 06:27 | XMS_ITS | Continuity of Care Document ---
Author Organization [facility] Gastroenter olog[facility] Address [address] [place] [address]- Care Team Providers Care Matrix Worker Name Role Phone Po Haylee PATRICK Primary Care Physician [phone] [place] [facility] [place](s): 11/16/19 - 12/16/19 [facility] [address] [place] [address]- [facility] Allergies, Adverse Reactions, Alerts Substance [...] 10 10/03/02 Given 1Admin Note: ADMIN BY [facility] 2Admin Note: ADMIN BY [facility] 3Admin Note: FLUZONE 4Admin Note: VIS 11/13/2008 given by Deanna Hutson RN 5Admin Note: [id number] GIVEN ADM. HOOD 6Admin Note: VIS 10/01/2006 [...] 0, 03/05/06 9:37:46, glaucoma, Print FLORIN Number, [id number], Constant Indicator Start Date: 03/05/06 Status: Ordered [...] 10 04/10/12 Active 12ry to cholelithiasis at [facility] in the 2cataract surgery on [place] by Dr Mckinnon on 2002, compliactuion: residual vison is shadows 3acute midsigmoid diverticulitis by abd pelvic CT scan at [facility] 43 colo by Robin Gonzalez M.D.. [...] by abd pelvic Ct scan 04/10/12 at [facility]. 10Right renal cysts and renal stones by abd pelvic Ct scan 04/10/12 at [facility]. Social History Social History Type Response Smoking Status Never smoker entered on: 06/09/16 Sex
--- OUTSIDE RECORDS SUMMARY | 2023-11-24 06:27 | XMS_ITS | Continuity of Care Document ---
Author Organization [facility] Address [address] [place] [address]- Care Team Providers Care Hand Molder And Caster Name Role Phone Po Haylee PATRICK Primary Care Physician [phone] Encounter [facility] Date(s): 03/05/20 - 04/04/20 [facility] [address] [place] [address]- Allergies, Adverse Reactions, Alerts Substance Reaction Severity [...] 10 10/03/02 Given 1Admin Note: ADMIN BY [facility] 2Admin Note: ADMIN BY [facility] 3Admin Note: FLUZONE 4Admin Note: VIS 11/13/2008 given by Deanna Hutson RN 5Admin Note: [id number] GIVEN ADM. HOOD 6Admin Note: VIS 10/01/2006 [...] 0, 03/05/06 9:37:46, glaucoma, Print FLORIN Number, [id number], Constant Indicator Start Date: 03/05/06 Status: Ordered Fish Oil oral capsule 2 capsule, By Mouth, Daily, 1000 mg, # 60 capsule, 11 Refills, Maintenance Start Date: 02/04/12 Status: Ordered losartan 25 mg oral tablet 1 tablet = 25 mg, By Mouth, Daily, # 90 tablet, 3 Refills, Maintenance, 03/05/20 9:49:00 EST, Tablet, [facility] #[id number], 152.4, cm, 01/03/20 13:34:00 EDT, Height, 51, [...] 10 04/10/12 Active 12ry to cholelithiasis at [facility] in the 2cataract surgery on by Dr Mckinnon on 2002, compliactuion: residual vison is shadows 3acute midsigmoid diverticulitis by abd pelvic CT scan at [facility] colo by Robin Gonzalez M.D.. Internal [...] pelvic Ct scan 04/10/12 at [facility]. 10Right renal cysts and renal stones by abd pelvic Ct scan 04/10/12 at [facility]. Social History Social History Type Response Smoking Status Never smoker entered on: 06/09/16 Sex
--- OUTSIDE RECORDS SUMMARY | 2023-11-24 06:27 | XMS_ITS | Continuity of Care Document ---
Author Organization [facility] STABILIZING MACHINE OPERATOR Oncolog y Address [address] [place] [address]- Care Team Providers Care Pad Cutter Name Role Phone Po Haylee PATRICK Primary Care Physician [place] [facility] Date(s): 02/02/22 - 03/04/22 [facility] STABILIZING MACHINE OPERATOR Oncology [address] [place] [id number] Attending Physician: Raghu Blackman Admitting Physician: Raghu [...] 10 10/03/02 Given 1Admin Note: AD[facility] 2Admin Note: ADMIN [facility] 3Admin Note: FLUZONE 4Admin Note: VIS 11/13/2008 given by Deanna Hutson RN 5Admin Note: [id number] GIVEN ADM. HOOD 6Admin Note: VIS 10/01/2006 [...] 0, 03/05/06 9:37:46, glaucoma, Print FLORIN Number, [id number], Constant Indicator Start Date: 03/05/06 Status: Ordered [...] Mouth, Daily, # 90 tablet, 3 Refills, [facility] #[id number], 153, cm, 06/18/21 9:43:00 EDT, Height, 50, [...] 1 kit, 0 Refills, Maintenance, 01/24/21 13:40:00 EDT,[facility][id number], Partial fill upon... Start Date: 01/24/21 Status: [...] Active Blood transfusion declined because patient is Yazidism Confirmed Active Fibroid uterus Confirmed Active 12ry to cholelithiasis at [facility] in the 2cataract surgery on [place] by Dr Mckinnon on 2002, compliactuion: residual vison is shadows 3acute midsigmoid diverticulitis by abd pelvic CT scan at [facility] colo by Robin Gonzalez M.D.. [...] pelvic Ct scan 04/10/12 at [facility]. 10Right renal cysts and renal stones by abd pelvic Ct scan 04/10/12 at [facility]. Social History Social History Type Response Smoking Status Never smoker entered on: 06/09/16 Sex Patient Care team information Care Team Personnel Name: Haylee Sanchez MD Position: Reference Physician Member Role: PCP Address: Address: [address] [place] [address]- Care Team Related Persons Name: RENETTA ALCALA Address: home [address] [place] [address] Name: KANU ALCALA Address: home [address] [address]
--- OUTSIDE RECORDS SUMMARY | 2023-11-24 06:27 | XMS_ITS | Continuity of Care Document ---
Author Organization [facility] Address [address] [place] [address]- Care Team Providers Care Cloth Napping Supervisor Name Role Phone Po Haylee PATRICK Primary Care Physician [phone] Encounter [facility] [id number] Date(s): 07/31/22 - 07/31/[address] [address]- Discharge Disposition: A-D/C Home Attending Physician: Robert De La Torre MD Admitting Physician: Robert De La Torre MD Referring Physician: Not on Staff, Referring [...] 10 10/03/02 Given 1Admin Note: ADMIN BY [facility] 2Admin Note: ADMIN BY [facility] 3Admin Note: FLUZONE 4Admin Note: VIS 11/13/2008 given by Deanna Hutson RN 5Admin Note: [id number] GIVEN ADM. RN 6Admin Note: VIS 10/01/2006 [...] 0, 03/05/06 9:37:46, glaucoma, Print FLORIN Number, [id number], Constant Indicator Start Date: 03/05/06 Status: Ordered losartan 25 mg oral tablet 1 tablet, By Mouth, Daily, # 90 tablet, 0 Refills, Maintenance, 07/16/22 10:39:00 EDT, [facility] #[id number], 147.3, cm, 07/09/22 15:58:00 EDT, Height, 50.9, kg, 02/10/22 15:43:00 EST, Dry Weight Start Date: 07/16/22 Status: Ordered Neosporin + Burn Relief topical ointment See Instructions, Topically 2 times a day, # 30 Gm, 0 Refills, Acute 08/01/22 21:58:00 EDT, 07/31/22 21:57:00 EDT, [facility] #[id number], Partial fill upon patient request if the prescription is for a schedule II opioid drug., Topically 2 times... Start Date: 07/31/22 Stop Date: 08/01/22 Status: Ordered Problem List Condition Confirmation Course [...] Active Blood transfusion declined because patient is Cheondoism Confirmed Active Fibroid uterus Confirmed Active 12ry to cholelithiasis at [facility] in the 2cataract surgery on [place] by Dr Mckinnon on 2002, compliactuion: residual vison is shadows 3acute midsigmoid diverticulitis by abd pelvic CT scan at [facility] 43 colo by Robin Gonzalez M.D.. [...] by abd pelvic Ct scan 04/10/12 at [facility]. 10Right renal cysts and renal stones by abd pelvic Ct scan 04/10/12 at [facility]. Vital Signs Most recent to oldest [Reference Range]: 1 2 Height 148 cm (07/31/22 10:34 PM) 148 cm (07/31/22 8:37 PM) Weight 53.3 kg (07/31/22 8:37 PM) Oxygen Saturation [94-100 %] 99 % (07/31/22 10:34 PM) 98 % (07/31/22 8:37 PM) Pulse Rate [55-90 bpm] 73 bpm (07/31/22 10:34 PM) 68 bpm (07/31/22 8:37 PM) Blood Pressure [90-138/55-84 mm Hg] 146/ 79mm Hg *H* (07/31/22 10:34 PM) 152/74mm Hg *H* (07/31/22 8:37 PM) Respiratory Rate [16-30 br/min] 16 br/mi n (07/31/22 8:37 PM) Temperature [96.8-100.4 DegF] 97.7 DegF (07/31/22 10:34 PM) 98.2 DegF (07/31/22 8:37 PM) Mode of Delivery (Oxygen) Room air (07/31/22 10:34 PM) Room air (07/31/22 8:37 PM) Blood pressure sites Arm, right (07/31/22 10:34 PM) Arm, left (07/31/22 8:37 PM) Temperature Route Temporal (07/31/22 10:34 PM) Oral (07/31/22 8:37 PM) Dry Weight 53.3 kg (07/31/22 8:37 PM) Weight Obtained Via Standing scale (07/31/22 8:37 PM) Dry Weight Obtained Via Standing scale (07/31/22 8:37 PM) Social History Social History Type Response Smoking Status Never smoker entered on: 06/09/16 Sex Note * Britt PATRICK, Robert Curry: PERFORM Event Display: Patient Education Leaflets Authored Date: [id number] Trauma Burn Care Instructions ?? 554 ?? Trauma Patient - Burn Aftercare Instructions ?? Your burn can be taken care of at home. ?? Aftercare Instructions ??? Burn dressings (bandages) need to be changed [? ] times/day as prescribed by your doctor. ??? Remove the ointment/cream by gently washing with mild soap and water. May shower. ??? After the burn area is dry, apply topical ointment to wound as prescribed in thin layer. ??? No swimming until wounds healed. ?? Notify your doctor or return to the Emergency Department immediately in case of the following: ??? Signs of infection ??? Unusual redness, red streaks, or swelling around the wound ??? Increasing pain and tenderness ??? Pus draining from the wound ??? The burn does not seem to be healing gradually over 10-14 days. ?? Notify your doctor or return to the Emergency Department immediately in case of the following: ??? Increased bleeding or drainage from the wound. ??? The development of a fever or increased redness or swelling to the wound area. ?? Additional questions please contact: Trauma Outpatient Office/[facility] [address] [place], [place] [id number] ? Patient Care team information Care Team Personnel Name: Haylee Sanchez MD Position: Reference Physician Member Role: PCP Address: Address: [address] [place] [address]- Name: Robert De La Torre MD Position: [facility] ED Medicine MD Member Role: Admitting Physician Address: Address: [address] [place] [address] [place] [address]- Name: Lul RNJuly Position: [facility] ED RN W/OE and Tasks Member Role: Patient Care Provider Care Team Related Persons Name: RENETTA ALCALA Address: home [address] [place] [address] Name: KANU ALCALA Address: home [address] [address]
--- OUTSIDE RECORDS SUMMARY | 2023-11-24 06:27 | XMS_ITS | Continuity of Care Document ---
Author Organization [facility] Address [address] [place] [address]- Care Team Providers Care Magnetic Prospector Name Role Phone Po Haylee PATRICK Primary Care Physician [phone] Encounter [facility] Date(s): 07/01/20 - 07/01/[address] [address]- Discharge Disposition: A-D/C Home Attending Physician: Greg Hastings MD Admitting Physician: Greg Hastings MD Referring Physician: Not on Staff, Referring [...] 10 10/03/02 Given 1Admin Note: ADMIN BY [facility] 2Admin Note: ADMIN BY [facility] 3Admin Note: FLUZONE 4Admin Note: VIS 11/13/2008 given by Deanna Hutson RN 5Admin Note: [id number] GIVEN ADM. RN 6Admin Note: VIS 10/01/2006 7Admin Note: GIVEN BY NURSE 8Admin Note: GIVEN BY NURSE 9Admin Note: GIVEN BY NURSE 10Admin Note: GIVEN BY NURSE Medications acetaminophen-HYDROcodone 325 mg-5 mg oral tablet 1 tablet, By Mouth, Every 4 hours, PRN for pain, # 10 tablet, 0 Refills, Acute 07/09/20 9:07:00 EDT, 07/01/20 9:07:00 EDT, Tablet, [facility]66748, Partial fill upon patient request if the prescription is for a schedule II opioid drug., 1... Start Date: 07/01/20 Stop Date: 07/09/20 Status: Ordered atorvastatin 10 mg oral tablet [...] 0, 03/05/06 9:37:46, glaucoma, Print FLORIN Number, [id number], Constant Indicator Start Date: 03/05/06 Status: Ordered [...] 3 Refills, Maintenance, 03/05/20 9:49:00 EST, Tablet, [facility] #[id number], 152.4, cm, 01/03/20 13:34:00 EDT, Height, 51, kg, 09/03/19 10:09:00 EDT, Dry Weight Start Date: 03/05/20 Status: Ordered Melatonin = 20 mg, By Mouth, Daily at bedtime, 0 Refills, Maintenance, 11/30/18 12:47:42 EDT Start Date: 11/30/18 Status: Ordered Multivitamin By Mouth, Daily, 0 Refills, Maintenance, 08/28/13 12:01:23 Start Date: 08/28/13 Status: Ordered naproxen 500 mg oral tablet 1 tablet = 500 mg, By Mouth, 2 times a day, PRN Pain , Moderate, # 14 tablet, 0 Refills, Acute 07/09/20 9:07:00 EDT, 07/01/20 9:07:00 EDT, Tablet, [facility] #[id number], Partial fill upon patient request if the prescription is for a schedule II... Start Date: 07/01/20 Stop Date: 07/09/20 Status: Ordered PrednisoLONE Acetate 1% Ophth See [...] 10 04/10/12 Active 12ry to cholelithiasis at [facility] in the 2cataract surgery on [place] by Dr Mckinnon on 2002, compliactuion: residual vison is shadows 3acute midsigmoid diverticulitis by abd pelvic CT scan at [facility] colo by Robin Gonzalez M.D.. Internal hemorrhoids; [...] by abd pelvic Ct scan 04/10/12 at [facility]. 10Right renal cysts and renal stones by abd pelvic Ct scan 04/10/12 at [facility]. Results Radiology Reports * Exam Date Time Procedure Performing Provider Status 07/01/20 8:52 AM Foot Min 3 Views Right Arnel , Beatrice enbrandie; Auth (Verified) Notes: (Foot Min 3 Views Right) Reason For Exam: Pain RESULT: Foot Min 3 Views Right Right foot 3 views dated July 01, 2020. Comparison films are from August 12, 2007. HISTORY: Pain and swelling. FINDINGS: This examination shows no evidence of fracture or dislocation. Joint spaces are fairly well-preserved. There is a minimal plantar calcaneal bone spur. There is minimal loss of joint space with subchondral sclerosis in the first metatarsophalangeal joint. No radiopaque foreign body or soft tissue gas is noted. IMPRESSION: Minimal arthritic changes. No evidence of fracture or dislocation. Examination [address]. Thank you for allowing me to participate in the care of this patient. WSN: [id number] Ordering Physician: Greg Hastings Dictated By: Gus Luna MD Dictated Date/Time: 07/01/20 9:43 am Reviewed By: Gus Luna MD Signed By: Gus Luna MD Signed Date/Time: 07/01/20 9:43 am Transcribed By: CSB Transcribed Date/Time: 07/01/20 9:41 am Vital Signs Most recent to oldest [Reference Range]: 1 2 Height 155 cm (07/01/20 9:51 AM) 155 cm (07/01/20 8:26 AM) Weight 48.5 kg (07/01/20 9:51 AM) 48.5 kg (07/01/20 8:26 AM) Oxygen Saturation [94-100 %] 99 % (07/01/20 8:26 AM) Pulse Rate [55-90 bpm] 70 bpm (07/01/20 9:51 AM) 71 bpm (07/01/20 8:26 AM) Blood Pressure [90-138/55-84 mm Hg] 135/ 75mm Hg (07/01/20 9:51 AM) 133/75mm Hg (07/01/20 8:26 AM) Respiratory Rate [16-30 br/min] 20 br/mi n (07/01/20 8:26 AM) Temperature [96.8-100.4 DegF] 98.3 DegF (07/01/20 8:26 AM) Mode of Delivery (Oxygen) Room air (07/01/20 8:26 AM) Blood pressure sites Arm, left (07/01/20 8:26 AM) Temperature Route Oral (07/01/20 8:26 AM) Dry Weight 48.5 kg (07/01/20 9:51 AM) 48.5 kg (07/01/20 8:26 AM) Social History Social History Type Response Smoking Status Never smoker entered on: 06/09/16 Sex
--- OUTSIDE RECORDS SUMMARY | 2023-11-24 06:27 | XMS_ITS | Continuity of Care Document ---
Author Organization [facility] Address [address] [place] [address]- Care Team Providers Care Licensed Customs Broker Name Role Phone Po Haylee PATRICK Primary Care Physician [place] [facility] Date(s): 08/25/21 - 09/24/21 [facility] [address] [place] [address]- Attending Physician: Admtr, Ar8 Admitting Physician: Admtr, Ar8 Referring Physician: Admtr, [...] 10 10/03/02 Given 1Admin Note: ADMIN BY [facility] 2Admin Note: AD[facility] 3Admin Note: FLUZONE 4Admin Note: VIS 11/13/2008 given by Deanna Hutson RN 5Admin Note: [id number] GIVEN ADMCharley RN 6Admin Note: VIS 10/01/2006 [...] 0, 03/05/06 9:37:46, glaucoma, Print FLORIN Number, [id number], Constant Indicator Start Date: 03/05/06 Status: Ordered [...] Mouth, Daily, # 90 tablet, 3 Refills, [facility] #[id number], 153, cm, 06/18/21 9:43:00 EDT, Height, 50, [...] 1 kit, 0 Refills, Maintenance, 01/24/21 13:40:00 [facility], Partial fill upon... Start Date: 01/24/21 Status: [...] Blood transfusion declined b ecause patient is Congregational(Confirmed) Active Fibroid uterus(Confirmed) Active 12ry to cholelithiasis at [facility] in the 2cataract surgery on [place] by Dr Mckinnon on 2002, compliactuion: residual vison is shadows 3acute midsigmoid diverticulitis by abd pelvic CT scan at [facility] colo by Robin Gonzalez M.D.. Internal [...] pelvic Ct scan 04/10/12 at [facility]. 10Right renal cysts and renal stones by abd pelvic Ct scan 04/10/12 at [facility]. Social History Social History Type Response Smoking Status Never smoker entered on: 06/09/16 Sex
--- OUTSIDE RECORDS SUMMARY | 2023-11-24 06:27 | XMS_ITS | Continuity of Care Document ---
Author Organization [facility] Mary nys Address [address], 4t [place] [address]- Care Team Providers Care Clerk Manager Name Role Phone Po Haylee PATRICK Primary Care Physician Encounter [facility] Date(s): 03/18/20 - 03/25/20 [facility] [address], 4th [place] [address]- Attending Physician: Cristopher PATRICK, Emma Beavers Referring Physician: Jana PATRICK, Sera Beavers Allergies, Adverse Reactions, Alerts Substance Reaction Severity [...] 10 10/03/02 Given 1Admin Note: ADMIN BY [facility] 2Admin Note: ADMIN [facility] 3Admin Note: FLUZONE 4Admin Note: VIS 11/13/2008 given by Deanna Hutson RN 5Admin Note: [id number] GIVEN ADM. HOOD 6Admin Note: VIS 10/01/2006 [...] 0, 03/05/06 9:37:46, glaucoma, Print FLORIN Number, [id number], Constant Indicator Start Date: 03/05/06 Status: Ordered Fish Oil oral capsule 2 capsule, By Mouth, Daily, 1000 mg, # 60 capsule, 11 Refills, Maintenance Start Date: 02/04/12 Status: Ordered losartan 25 mg oral tablet 1 tablet = 25 mg, By Mouth, Daily, # 90 tablet, 3 Refills, Maintenance, 03/05/20 9:49:00 EST, Tablet, [facility] #[id number], 152.4, cm, 01/03/20 13:34:00 EDT, Height, 51, [...] 10 04/10/12 Active 12ry to cholelithiasis at [facility] in the 2cataract surgery on [place] [...]
--- OUTSIDE RECORDS SUMMARY | 2023-11-24 06:27 | XMS_ITS | Continuity of Care Document ---
Author Organization [facility] Shaylee mica Address [address] [place] [address] [address] [place] [address]- Care Team Providers Care Biochemistry Teacher Name Role Phone Po Haylee PATRICK Primary Care Physician [phone] Encounter [facility] Date(s): 02/11/21 - 03/13/21 [facility] [address] [place], [place] [address] Allergies, Adverse Reactions, Alerts Substance Reaction Severity [...] 10 10/03/02 Given 1Admin Note: ADMIN BY [facility] 2Admin Note: ADMIN BY [facility] 3Admin Note: FLUZONE 4Admin Note: VIS 11/13/2008 given by Deanna Hutson RN 5Admin Note: [id number] GIVEN ADMCharley RN 6Admin Note: VIS 10/01/2006 [...] 0, 03/05/06 9:37:46, glaucoma, Print FLORIN Number, [id number], Constant Indicator Start Date: 03/05/06 Status: Ordered [...] 3 Refills, Maintenance, 03/05/20 9:49:00 EST, Tablet, [facility] #[id number], 152.4, cm, 01/03/20 13:34:00 EDT, Height, 51, [...] 1 kit, 0 Refills, Maintenance, 01/24/21 13:40:00 EDT,[facility] #[id number], Partial fill upon... Start Date: 01/24/21 Status: [...] 04/10/12 Active 12ry to cholelithiasis at [facility] in the 2cataract surgery on [place] by Dr Mckinnon on 2002, compliactuion: residual vison is shadows 3acute midsigmoid diverticulitis by abd pelvic CT scan at [facility] 43 colo by Robin Gonzalez M.D.. Internal [...] - 1.1, osteoporosis femoral neck -2.7 8DEXA 12/22/09 normal AP lumbar spine -0.6 , normal total proximal femur -0.8 , osteopenia femoral neck -2.2 9Right renal cysts and renal stones by abd pelvic Ct scan 04/10/12 at [facility]. 10Right renal cysts and renal stones by abd pelvic Ct scan 04/10/12 at [facility]. Social History Social History Type Response Smoking Status Never smoker entered on: 06/09/16 Sex
--- OUTSIDE RECORDS SUMMARY | 2023-11-24 06:27 | XMS_ITS | Continuity of Care Document ---
Author Organization [facility] Mary Patricia nigobubbles [facility] Address [address], 4t [place] [address]- Care Team Providers Care Clock Repairer Name Role Phone Po Haylee PATRICK Primary Care Physician [phone] [place] [facility]10[place]22 - 03/12/22 [facility] Maryregine Sextonigobubbles [facility] [address], 4th [address] [place], [place] [address] Attending Physician: Admtr, Ar8 Admitting Physician: Admtr, [...] 10 10/03/02 Given 1Admin Note: ADMIN BY [facility] 2Admin Note: ADMIN BY [facility] 3Admin Note: FLUZONE 4Admin Note: VIS 11/13/2008 given by Deanna Hutson RN 5Admin Note: [id number] GIVEN ADM. RN 6Admin Note: VIS 10/01/2006 [...] 0, 03/05/06 9:37:46, glaucoma, Print FLORIN Number, [id number], Constant Indicator Start Date: 03/05/06 Status: Ordered [...] Mouth, Daily, # 90 tablet, 3 Refills, [facility] #[id number], 153, cm, 06/18/21 9:43:00 EDT, Height, 50, [...] 1 kit, 0 Refills, Maintenance, 01/24/21 13:40:00 EDT,[facility] #[id number], Partial fill upon... Start Date: 01/24/21 Status: [...] Active Blood transfusion declined because patient is Jew Confirmed Active Fibroid uterus Confirmed Active 12ry to cholelithiasis at [facility] in the 2cataract surgery on by Dr Mckinnon on 2002, compliactuion: residual vison is shadows 3acute midsigmoid diverticulitis by abd pelvic CT scan at [facility] colo by Robin Gonzalez M.D.. [...] by abd pelvic Ct scan 04/10/12 at [facility]. 10Right renal cysts and renal stones by abd pelvic Ct scan 04/10/12 at [facility]. Social History Social History Type Response Smoking Status Never smoker entered on: 06/09/16 Sex Patient Care team information Care Team Personnel Name: Haylee Sanchez MD Position: Reference Physician Member Role: PCP Address: Address: [address] [place] [address]- Care Team Related Persons Name: RENETTA ALCALA Address: home [address] [place] [address] Name: KANU ALCALA Address: home [address] [address]
--- OUTSIDE RECORDS SUMMARY | 2023-11-24 06:27 | XMS_ITS | Continuity of Care Document ---
Author Organization [facility] Address [address] [place] [address]- Care Team Providers Care Gas Pumping Station Operator Name Role Phone Po Haylee PATRICK Primary Care Physician [place] [facility] [place]23 - 06/20/23 [facility] [address] [place] [address] Attending Physician: Raghu Blackman Admitting Physician: AdmtrRaghu Referring Physician: AdmtrRaghu Allergies, Adverse Reactions, Alerts [...] 10 10/03/02 Given 1Admin Note: [facility] 2Admin Note: ADMIN BY [facility] 3Admin Note: FLUZONE 4Admin Note: VIS 11/13/2008 given by S Haresh RN 5Admin Note: [id number] GIVEN ADM. RN 6Admin Note: VIS 10/01/2006 [...] 0, 03/05/06 9:37:46, glaucoma, Print FLORIN Number, [id number], Constant Indicator Start Date: 03/05/06 Status: Ordered losartan 25 mg oral tablet 1 tablet, By Mouth, Daily, # 90 tablet, 0 Refills, Maintenance, 06/15/23 13:20:00 EDT, [facility][id number], 148, cm, 01/29/23 11:01:00 EDT, Height, 53.3, [...] Active Blood transfusion declined because patient is Yazdanism Confirmed Active Fibroid uterus Confirmed Active 12ry to cholelithiasis at [facility] in the 2cataract surgery on [place] by Dr Mckinnon on 2002, compliactuion: residual [...] Reference Physician Member Role: PCP Address: Address: [address] [place] [address]- Care Team Related Persons Name: RENETTA ALCALA Address: home [address] [place] [address] Name: KANU ALCALA Address: home [address] [address]
--- OUTSIDE RECORDS SUMMARY | 2023-11-24 06:27 | XMS_ITS | Continuity of Care Document ---
Author Organization [facility] Address [address] [place] [address]- Care Team Providers Care Dye Stand Loader Name Role Phone Po Haylee PATRICK Primary Care Physician [phone] Encounter [facility] Date(s): 09/03/19 - 09/03/[address] [address] [place] Encounter Diagnosis Chronic pelvic pain in female(Final) - 09/03/19 Fibroid, uterine(Final) - 09/03/19 Discharge Disposition: A-D/C Home Attending Physician: Larry Garcia MD Admitting Physician: Larry Garcia MD Referring Physician: Not on Staff, Referring [...] 10 10/03/02 Given 1Admin Note: ADMIN BY [facility] 2Admin Note: ADMIN BY [facility] 3Admin Note: FLUZONE 4Admin Note: VIS 11/13/2008 given by S Haresh RN 5Admin Note: [id number] GIVEN RN 6Admin Note: VIS 10/01/2006 7Admin [...] 0, 03/05/06 9:37:46, glaucoma, Print FLORIN Number, [id number], Constant Indicator Start Date: 03/05/06 Status: Ordered [...] 10 04/10/12 Active 12ry to cholelithiasis at [facility] in the 2cataract surgery on [place] by Dr Mckinnon on 2002, compliactuion: residual vison is shadows 3acute midsigmoid diverticulitis by abd pelvic CT scan at [facility] colo by Robin Gonzalez M.D.. Internal [...] by abd pelvic Ct scan 04/10/12 at [facility]. 10Right renal cysts and renal stones by abd pelvic Ct scan 04/10/12 at [facility]. Vital Signs Most recent to oldest [Reference Range]: 1 2 Height 0 cm (09/03/19 10:04 AM) Weight 51 kg (09/03/19 10:04 AM) Oxygen Saturation [94-100 %] 100 % (09/03/19 11:12 AM) 100 % (09/03/19 10:04 AM) Pulse Rate [55-90 bpm] 74 bpm (09/03/19 11:12 AM) 76 bpm (09/03/19 10:04 AM) Blood Pressure [90-138/55-84 mm Hg] 142/ 78mm Hg *H* (09/03/19 11:12 AM) 138/84mm Hg (09/03/19 10:04 AM) Respiratory Rate [16-30 br/min] 16 br/mi n (09/03/19 11:12 AM) 16 br/min (09/03/19 10:04 AM) Temperature [96.8-100.4 DegF] 98.8 DegF (09/03/19 10:04 AM) Mode of Delivery (Oxygen) Room air (09/03/19 11:12 AM) Room air (09/03/19 10:04 AM) Blood pressure sites Arm, right (09/03/19 11:12 AM) Arm, left (09/03/19 10:04 AM) Temperature Route Oral (09/03/19 10:04 AM) Dry Weight 51 kg (09/03/19 10:04 AM) Weight Obtained Via Patient/family state d (09/03/19 10:04 AM) Dry Weight Obtained Via Patient/family s tated (09/03/19 10:04 AM) Social History Social History Type Response Smoking Status Never smoker entered on: 06/09/16 Sex
--- OUTSIDE RECORDS SUMMARY | 2023-11-24 06:28 | XMS_ITS | Continuity of Care Document ---
Author Organization [facility] ter Address [address] [place] [address]- Care Team Providers Care Pipe Line Maintenance Supervisor Name Role Phone Po Haylee PATRICK Primary Care Physician Encounter [facility] [place] Date(s): 05/11/19 - 11/15/[address] [address]- [facility] Attending Physician: Jeff Wing MD Admitting Physician: Jeff Wing MD Allergies, Adverse Reactions, Alerts Substance Reaction [...] 10 10/03/02 Given 1Admin Note: ADMIN BY [facility] 2Admin Note: ADMIN BY [facility] 3Admin Note: FLUZONE 4Admin Note: VIS 11/13/2008 given by Deanna Hutson RN 5Admin Note: [id number] GIVEN ADM. RN 6Admin Note: VIS 10/01/2006 [...] 0, 03/05/06 9:37:46, glaucoma, Print FLORIN Number, [id number], Constant Indicator Start Date: 03/05/06 Status: Ordered [...] Active Hypercholesterolemia(Confirmed) 08/12/07 Active Internal hemorrhoids(Confirmed) 6 3/1/06 Active LBBB (left bundle branch block)(Confirmed) Active Osteoporosis(Confirmed) 7, 8 03/26/09 Active Overweight(Confirmed) Active Renal cyst(Confirmed) 9 04/10/12 Active Renal stone(Confirmed) 10 04/10/12 Active 12ry to cholelithiasis at [facility] in the 2cataract surgery on [place] by Dr Mckinnon on 2002, compliactuion: residual vison is shadows 3acute midsigmoid diverticulitis by abd pelvic CT scan at [facility] colo by Robin Gonzalez M.D.. [...] by abd pelvic Ct scan 04/10/12 at [facility]. 10Right renal cysts and renal stones by abd pelvic Ct scan 04/10/12 at [facility]. Social History Social History Type Response Smoking Status Never smoker entered on: 06/09/16 Sex
--- OUTSIDE RECORDS SUMMARY | 2023-11-24 06:28 | XMS_ITS | Continuity of Care Document ---
Author Organization [facility] MAJOR APPLIANCE ASSEMBLY SUPERVISOR Oncolog y Address [address] [place] [address]- Care Team Providers Care Ladle Repairman Name Role Phone Po Haylee PATRICK Primary Care Physician [place] [facility] [place](s): 07/16/21 - 08/15/21 [facility] MAJOR APPLIANCE ASSEMBLY SUPERVISOR Oncology [address] [place] [address] Allergies, Adverse Reactions, Alerts Substance Reaction [...] 10 10/03/02 Given 1Admin Note: ADMIN BY [facility] 2Admin Note: ADMIN BY [facility] 3Admin Note: FLUZONE 4Admin Note: VIS 11/13/2008 given by Deanna Hutson RN 5Admin Note: [id number] GIVEN RN 6Admin Note: VIS 10/01/2006 7Admin [...] 0, 03/05/06 9:37:46, glaucoma, Print FLORIN Number, [id number], Constant Indicator Start Date: 03/05/06 Status: Ordered [...] Mouth, Daily, # 90 tablet, 3 Refills, [facility] #[id number], 153, cm, 06/18/21 9:43:00 EDT, Height, 50, [...] 1 kit, 0 Refills, Maintenance, 01/24/21 13:40:00 EDT,[id number], Partial fill upon... Start Date: 01/24/21 Status: [...] Fibroid uterus(Confirmed) Active 12ry to cholelithiasis at [facility] in the 2cataract surgery on by Dr Mckinnon on 2002, compliactuion: residual vison is shadows 3acute midsigmoid diverticulitis by abd pelvic CT scan at [facility] colo by Robin Gonzalez M.D.. Internal [...] pelvic Ct scan 04/10/12 at [facility]. 10Right renal cysts and renal stones by abd pelvic Ct scan 04/10/12 at [facility]. Social History Social History Type Response Smoking Status Never smoker entered on: 06/09/16 Sex
--- OUTSIDE RECORDS SUMMARY | 2023-11-24 06:28 | XMS_ITS | Continuity of Care Document ---
Author Organization [facility] Address [address] [place] [address]- Care Team Providers Care Air And Missile Defense Crewmember Name Role Phone Haylee Sanchez MD Primary Care Physician [place] [facility] [place](s): 05/26/21 - 06/02/21 [facility] [address] [place] [address]- Encounter Diagnosis Sore throat(Discharge Diagnosis) - 05/26/21 Acute URI(Discharge Diagnosis) - 05/26/21 Attending Physician: Geetha Reynolds MD Referring Physician: Haylee Sanchez MD Allergies, [...] 10 10/03/02 Given 1Admin Note: AD[facility] 2Admin Note: ADMIN BY [facility] 3Admin Note: FLUZONE 4Admin Note: VIS 11/13/2008 given by Deanna Hutson RN 5Admin Note: [id number] GIVEN ADMCharley RN 6Admin Note: VIS 10/01/2006 7Admin Note: GIVEN BY NURSE 8Admin Note: GIVEN BY NURSE 9Admin Note: GIVEN BY NURSE 10Admin Note: GIVEN BY NURSE Medications amoxicillin 875 mg oral tablet 1 tablet = 875 mg, By Mouth, 2 times a day, for 10 days, # 20 tablet, 0 Refills, Acute 06/05/21 15:35:00 EST, 05/26/21 15:35:00 EST, Tablet, [facility][id number], Partial fill upon patient request if the prescription is for a schedule II opioid... Start Date: 05/26/21 Stop Date: 06/05/21 Status: Ordered atorvastatin 10 mg oral tablet [...] 0, 03/05/06 9:37:46, glaucoma, Print FLORIN Number, [id number], Constant Indicator Start Date: 03/05/06 Status: Ordered [...] 3 Refills, Maintenance, 03/05/20 9:49:00 EST, Tablet, [facility] #[id number], 152.4, cm, 01/03/20 13:34:00 EDT, Height, 51, [...] 1 kit, 0 Refills, Maintenance, 01/24/21 13:40:00 EDT,[facility] #46506, Partial fill upon... Start Date: 01/24/21 Status: [...] 10 04/10/12 Active 12ry to cholelithiasis at [facility] in the 2cataract surgery on [place] by Dr Mckinnon on 2002, compliactuion: residual [...] pelvic Ct scan 04/10/12 at [facility]. Diagnosis Diagnosis Type Effective Dates Health Status Clini hilda Service Informant Sore throat Discharge Diagnosis 05/26/21 Acute URI Discharge Diagnosis 05/26/21 Social History Social History Type Response Smoking Status Never smoker entered on: 06/09/16 Sex
--- OUTSIDE RECORDS SUMMARY | 2023-11-24 06:28 | XMS_ITS | Continuity of Care Document ---
Author Organization [facility] Address [address] [place] [address]- Care Team Providers Care Room Inspector Name Role Phone Po Haylee PATRICK Primary Care Physician Encounter [facility] [place] Date(s): 07/09/22 - 08/08/22 [facility] [address] [place] [address]- Attending Physician: AdmRaghu pimentel Admitting Physician: Admtr, Raghu Referring Physician: Admtr, Ar8 Allergies, Adverse Reactions, [...] 10 10/03/02 Given 1Admin Note: ADMIN BY [facility] 2Admin Note: ADMIN BY [facility] 3Admin Note: FLUZONE 4Admin Note: VIS 11/13/2008 given by Deanna Hutson RN 5Admin Note: [id number] GIVEN ADM. HOOD 6Admin Note: VIS 10/01/2006 [...] 0, 03/05/06 9:37:46, glaucoma, Print FLORIN Number, [id number], Constant Indicator Start Date: 03/05/06 Status: Ordered losartan 25 mg oral tablet 1 tablet, By Mouth, Daily, # 90 tablet, 0 Refills, Maintenance, 07/16/22 10:39:00 EDT, [facility]76281, 147.3, cm, 07/09/22 15:58:00 EDT, Height, 50.9, kg, 02/10/22 15:43:00 EST, Dry Weight Start Date: 07/16/22 Status: Ordered Problem List Condition Confirmation Course [...] Active Blood transfusion declined because patient is Hinduism Confirmed Active Fibroid uterus Confirmed Active 12ry to cholelithiasis at [facility] in the 2cataract surgery on [place] by Dr Mckinnon on 2002, compliactuion: residual vison is shadows 3acute midsigmoid diverticulitis by abd pelvic CT scan at [facility] colo by Robin Gonzalez M.D.. Internal [...] by abd pelvic Ct scan 04/10/12 at [facility]. 10Right renal cysts and renal stones by abd pelvic Ct scan 04/10/12 at [facility]. Social History Social History Type Response Smoking Status Never smoker entered on: 06/09/16 Sex Cardiology * Event Display: Non BH Cardiovascular Results Authored Date: * Event Display: Non BH Cardiopulm Exercise Test Results Authored Date: * Event Display: EKG Non BH Authored Date: Note * Event Display: Cardiology Office Note, Non-BH Authored Date: Patient Care team information Care Team Personnel Name: Haylee Sanchez MD Position: Reference Physician Member Role: PCP Address: Address: [address] [place] [address]- Care Team Related Persons Name: RENETTA ALCALA Address: home [address] [place] [address] Name: KANU ALCALA Address: home [address] [address]
--- OUTSIDE RECORDS SUMMARY | 2023-11-24 06:28 | XMS_ITS | Continuity of Care Document ---
Author Organization [facility] Address [address] [place] [address]- Care Team Providers Care Hourly Sign Language Interpreter Name Role Phone Po Haylee PATRICK Primary Care Physician [place] [facility] [place] Date(s): 06/16/21 - 07/16/21 [facility] [address] [place] [address] [place] Allergies, Adverse Reactions, Alerts Substance Reaction [...] 10 10/03/02 Given 1Admin Note: [facility] 2Admin Note: [facility] 3Admin Note: FLUZONE 4Admin Note: VIS 11/13/2008 given by Deanna Hutson RN 5Admin Note: [id number] GIVEN RN 6Admin Note: VIS 10/01/2006 7Admin [...] 0, 03/05/06 9:37:46, glaucoma, Print FLORIN Number, [id number], Constant Indicator Start Date: 03/05/06 Status: Ordered [...] Mouth, Daily, # 90 tablet, 3 Refills, [facility][id number], 153, cm, 06/18/21 9:43:00 EDT, Height, 50, [...] 1 kit, 0 Refills, Maintenance, 01/24/21 13:40:00 EDT,[facility][id number], Partial fill upon... Start Date: 01/24/21 Status: [...] For Children in the 2cataract surgery on [place] by Dr Mckinnon on 2002, compliactuion: residual vison is shadows 3acute midsigmoid diverticulitis by abd pelvic CT scan at [facility] colo by Robin Gonzalez [...] by abd pelvic Ct scan 04/10/12 at [facility]. 10Right renal cysts and renal stones by abd pelvic Ct scan 04/10/12 at [facility]. Social History Social History Type Response Smoking Status Never smoker entered on: 06/09/16 Sex
--- OUTSIDE RECORDS SUMMARY | 2023-11-24 06:28 | XMS_ITS | Continuity of Care Document ---
Author Organization [facility] Address [address] [place] [address]- Care Team Providers Care Defensive Fire Control Systems Operator Name Role Phone Po Haylee PATRICK Primary Care Physician Encounter [facility] [place] Date(s): 04/01/21 - 05/01/[address] [address] Attending Physician: Admtr, [id number] Admitting Physician: Admtr, Ar8 Referring Physician: Admtr, [...] 10 10/03/02 Given 1Admin Note: ADMIN BY [facility] 2Admin Note: ADMIN BY [facility] 3Admin Note: FLUZONE 4Admin Note: VIS 11/13/2008 given by Deanna Hutson RN 5Admin Note: [id number] GIVEN ADMCharley RN 6Admin Note: VIS 10/01/2006 [...] 0, 03/05/06 9:37:46, glaucoma, Print FLORIN Number, [id number], Constant Indicator Start Date: 03/05/06 Status: Ordered [...] 3 Refills, Maintenance, 03/05/20 9:49:00 EST, Tablet, [facility] #[id number], 152.4, cm, 01/03/20 13:34:00 EDT, Height, 51, [...] 1 kit, 0 Refills, Maintenance, 01/24/21 13:40:00 EDT,[id number], Partial fill upon... Start Date: 01/24/21 Status: [...] 10 04/10/12 Active 12ry to cholelithiasis at [facility] in the 2cataract surgery on [place] by Dr Mckinnon on 2002, compliactuion: residual vison is shadows 3acute midsigmoid diverticulitis by abd pelvic CT scan at [facility] colo by Robin Gonzalez M.D.. Internal hemorrhoids; [...] by abd pelvic Ct scan 04/10/12 at [facility]. 10Right renal cysts and renal stones by abd pelvic Ct scan 04/10/12 at [facility]. Social History Social History Type Response Smoking Status Never smoker entered on: 06/09/16 Sex
--- OUTSIDE RECORDS SUMMARY | 2023-11-24 06:28 | XMS_ITS | Continuity of Care Document ---
Author Organization [facility] Address [address] [place] [address]- Care Team Providers Care Pre Press Manager Name Role Phone Haylee Sanchez MD Primary Care Physician [phone] Encounter [facility] Date(s): 01/29/23 - 02/05/23 [facility] [address] [place] [address]- Attending Physician: Jun Rocha MD Referring Physician: Haylee Sanchez MD Allergies, [...] 10 10/03/02 Given 1Admin Note: [facility] 2Admin Note: ADMIN BY [email or web address] 3Admin Note: FLUZONE 4Admin Note: VIS 11/13/2008 given by Deanna Hutson RN 5Admin Note: [id number] GIVEN ADM. HOOD 6Admin Note: VIS 10/01/2006 [...] 0, 03/05/06 9:37:46, glaucoma, Print FLORIN Number, [id number], Constant Indicator Start Date: 03/05/06 Status: Ordered losartan 25 mg oral tablet 1 tablet, By Mouth, Daily, # 90 tablet, 0 Refills, Maintenance, 11/24/22 9:59:00 EDT, [facility] #[id number], 148, cm, 07/31/22 22:34:00 EDT, Height, 53.3, [...] Active Blood transfusion declined because patient is Sabianism Confirmed Active Fibroid uterus Confirmed Active 12ry to cholelithiasis at [facility] in the 2cataract surgery on [place] by Dr Mckinnon on 2002, compliactuion: residual vison is shadows 3acute midsigmoid diverticulitis by abd pelvic CT scan at [facility] colo by Robin Gonzalez M.D.. Internal [...] Ct scan 04/10/12 at [facility]. 10Right renal cysts and renal stones by abd pelvic Ct scan 04/10/12 at [facility]. Vital Signs Most recent to oldest [Reference Range]: 1 Height 148 cm (01/29/23 11:01 AM) Weight 52.6 kg (01/29/23 11:01 AM) Pulse Rate [55-90 bpm] 67 bpm (01/29/23 11:01 AM) Body Mass Index [18.5-24.99 kg/m2] 24.01 kg/m2 (01/29/23 11:01 AM) Blood Pressure [90-138/55-84 mm Hg] 131/ 74mm Hg (01/29/23 11:01 AM) Mode of Delivery (Oxygen) Room air (01/29/23 11:01 AM) Blood pressure sites Arm, right (01/29/23 11:01 AM) Weight Obtained Via Standing scale (01/29/23 11:01 AM) Social History Social History Type Response Smoking Status Never smoker entered on: 06/09/16 Sex Patient Care team information Care Team Personnel Name: Haylee Sanchez MD Position: Reference Physician Member Role: PCP Address: Address: [address] [place] [address]- Care Team Related Persons Name: RENETTA ALCALA Address: home [address] [place] [address] Name: KANU ALCALA Address: home [address] [address]
--- OUTSIDE RECORDS SUMMARY | 2023-11-24 06:28 | XMS_ITS | Continuity of Care Document ---
Author Organization [facility] Address [address] [place] [address]- Care Team Providers Care Home Care Consultant Name Role Phone Po Haylee PATRICK Primary Care Physician [phone] Encounter [facility] Date(s): 01/20/22 - 02/19/22 [facility] [address] [place] [address] Allergies, Adverse Reactions, Alerts Substance Reaction [...] 10 10/03/02 Given 1Admin Note: ADMIN BY [facility] 2Admin Note: ADMIN BY [facility] 3Admin Note: FLUZONE 4Admin Note: VIS 11/13/2008 given by Deanna Hutson RN 5Admin Note: [id number] GIVEN RN 6Admin Note: VIS 10/01/2006 7Admin [...] 0, 03/05/06 9:37:46, glaucoma, Print FLORIN Number, [id number], Constant Indicator Start Date: 03/05/06 Status: Ordered [...] Mouth, Daily, # 90 tablet, 3 Refills, [facility] #[id number], 153, cm, 06/18/21 9:43:00 EDT, Height, 50, [...] 1 kit, 0 Refills, Maintenance, 01/24/21 13:40:00 EDT,[facility] #[id number], Partial fill upon... Start Date: 01/24/21 Status: [...] Active Blood transfusion declined because patient is Mosque Confirmed Active Fibroid uterus Confirmed Active 12ry to cholelithiasis at [facility] in the 2cataract surgery on [place] by Dr Mckinnon on 2002, compliactuion: residual vison is shadows 3acute midsigmoid diverticulitis by abd pelvic CT scan at [facility] colo by Robin Gonzalez M.D.. Internal [...] pelvic Ct scan 04/10/12 at [facility]. 10Right renal cysts and renal stones by abd pelvic Ct scan 04/10/12 at [facility]. Social History Social History Type Response Smoking Status Never smoker entered on: 06/09/16 Sex Patient Care team information Care Team Personnel Name: Haylee Sanchez MD Position: Reference Physician Member Role: PCP Address: Address: [address] [place] [address]- Care Team Related Persons Name: RENETTA ALCALA Address: home [address] [place] [address] Name: KANU ALCALA Address: home [address] [address]
--- OUTSIDE RECORDS SUMMARY | 2023-11-24 06:28 | XMS_ITS | Continuity of Care Document ---
Author Organization [facility] Address [address] [place] [address]- Care Team Providers Care Street Railway Line Installer Name Role Phone Po Haylee PATRICK Primary Care Physician Encounter [facility] Date(s): 01/08/21 - 02/07/21 [facility] [address] [place] [address]- [place] Allergies, Adverse Reactions, Alerts Substance Reaction [...] 10 10/03/02 Given 1Admin Note: ADMIN BY [facility] 2Admin Note: [facility] 3Admin Note: FLUZONE 4Admin Note: VIS 11/13/2008 given by Deanna Hutson RN 5Admin Note: [id number] GIVEN RN 6Admin Note: VIS 10/01/2006 7Admin [...] 0, 03/05/06 9:37:46, glaucoma, Print FLORIN Number, [id number], Constant Indicator Start Date: 03/05/06 Status: Ordered [...] 3 Refills, Maintenance, 03/05/20 9:49:00 EST, [id number], 152.4, cm, 01/03/20 13:34:00 EDT, Height, 51, [...] 1 kit, 0 Refills, Maintenance, 01/24/21 13:40:00 EDT,[facility] #[id number], Partial fill upon... Start Date: 01/24/21 Status: [...] 10 04/10/12 Active 12ry to cholelithiasis at [facility] in the 2cataract surgery on by Dr Mckinnon on 2002, compliactuion: residual vison is shadows 3acute midsigmoid diverticulitis by abd pelvic CT scan at [facility] colo by Robin Gonzalez M.D.. [...] pelvic Ct scan 04/10/12 at [facility]. 10Right renal cysts and renal stones by abd pelvic Ct scan 04/10/12 at [facility]. Social History Social History Type Response Smoking Status Never smoker entered on: 06/09/16 Sex
--- OUTSIDE RECORDS SUMMARY | 2023-11-24 06:28 | XMS_ITS | Continuity of Care Document ---
Author Organization [facility] Address [address] [facility], [address] d Floor, [address] [place] [address]- Care Team Providers Care Tactical Intelligence Officer Name Role Phone Po Haylee PATRICK Primary Care Physician [phone] Encounter [facility] Date(s): 04/02/20 - 05/02/20 [facility] [address], [address] Floor, [address] [place] [address] Attending Physician: Admtr, [id number] Admitting Physician: Admtr, [...] 10 10/03/02 Given 1Admin Note: ADMIN BY [facility] 2Admin Note: ADMIN BY [facility] 3Admin Note: FLUZONE 4Admin Note: VIS 11/13/2008 given by Deanna Hutson RN 5Admin Note: [id number] GIVEN ADMCharley HOOD 6Admin Note: VIS 10/01/2006 [...] 0, 03/05/06 9:37:46, glaucoma, Print FLORIN Number, [id number], Constant Indicator Start Date: 03/05/06 Status: Ordered Fish Oil oral capsule 2 capsule, By Mouth, Daily, 1000 mg, # 60 capsule, 11 Refills, Maintenance Start Date: 02/04/12 Status: Ordered losartan 25 mg oral tablet 1 tablet = 25 mg, By Mouth, Daily, # 90 tablet, 3 Refills, Maintenance, 03/05/20 9:49:00 EST, Tablet, [facility] #[id number], 152.4, cm, 01/03/20 13:34:00 EDT, Height, 51, [...] 10 04/10/12 Active 12ry to cholelithiasis at [facility] in the 2cataract surgery on [place] [...]
--- OUTSIDE RECORDS SUMMARY | 2023-11-24 06:28 | XMS_ITS | Continuity of Care Document ---
Author Organization [facility] Address [address] [place] [address]- Care Team Providers Care Protohistorian Name Role Phone Po Haylee PATRICK Primary Care Physician Encounter [facility] Date(s): 08/12/21 - 09/27/[address] [address] Attending Physician: Charito Sidhu MD Admitting Physician: Charito Sidhu MD Allergies, Adverse Reactions, Alerts Substance Reaction [...] 10 10/03/02 Given 1Admin Note: ADMIN BY [facility] 2Admin Note: ADMIN BY [facility] 3Admin Note: FLUZONE 4Admin Note: VIS 11/13/2008 given by Deanna Hutson RN 5Admin Note: [id number] GIVEN RN 6Admin Note: VIS 10/01/2006 7Admin [...] 0, 03/05/06 9:37:46, glaucoma, Print FLORIN Number, [id number], Constant Indicator Start Date: 03/05/06 Status: Ordered [...] Mouth, Daily, # 90 tablet, 3 Refills, [facility] #[id number], 153, cm, 06/18/21 9:43:00 EDT, Height, 50, [...] 1 kit, 0 Refills, Maintenance, 01/24/21 13:40:00 EDT,[email or web address] #[id number], Partial fill upon... Start Date: 01/24/21 Status: [...] Blood transfusion declined b ecause patient is Buddhism(Confirmed) Active Fibroid uterus(Confirmed) Active 12ry to cholelithiasis at [facility] in the 2cataract surgery on [place] by Dr Mckinnon on 2002, compliactuion: residual vison is shadows 3acute midsigmoid diverticulitis by abd pelvic CT scan at [facility] colo by Robin Gonzalez M.D.. Internal [...] by abd pelvic Ct scan 04/10/12 at [facility]. 10Right renal cysts and renal stones by abd pelvic Ct scan 04/10/12 at [facility]. Social History Social History Type Response Smoking Status Never smoker entered on: 06/09/16 Sex
--- OUTSIDE RECORDS SUMMARY | 2023-11-24 06:28 | XMS_ITS | Continuity of Care Document ---
Author Organization [facility] Address [address] [facility], [address] [place] [address]- Care Team Providers Care Director Data Analytics Name Role Phone Haylee Sanchez MD Primary Care Physician [id number] Date(s): 07/07/19 - 07/14/19 [facility] Maryregine Chandlers [facility] [address] [facility], [address] [place] [address]- Attending Physician: Emma Nicholas MD Referring Physician: Haylee Sanchez MD Allergies, [...] 10 10/03/02 Given 1Admin Note: ADMIN BY [facility] 2Admin Note: ADMIN BY [facility] 3Admin Note: FLUZONE 4Admin Note: VIS 11/13/2008 given by Deanna Hutson RN 5Admin Note: [id number] GIVEN ADM. HOOD 6Admin Note: VIS 10/01/2006 [...] 0, 03/05/06 9:37:46, glaucoma, Print FLORIN Number, [id number], Constant Indicator Start Date: 03/05/06 Status: Ordered [...] 10 04/10/12 Active 12ry to cholelithiasis at [facility] in the 2cataract surgery on by Dr Mckinnon on 2002, compliactuion: residual vison is shadows 3acute midsigmoid diverticulitis by abd pelvic CT scan at [facility] colo by Robin Gonzalez [...] by abd pelvic Ct scan 04/10/12 at [facility]. 10Right renal cysts and renal stones by abd pelvic Ct scan 04/10/12 at [facility]. Social History Social History Type Response Smoking Status Never smoker entered on: 06/09/16 Sex
--- OUTSIDE RECORDS SUMMARY | 2023-11-24 06:28 | XMS_ITS | Continuity of Care Document ---
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 Name Role Phone Po Haylee PATRICK Primary Care Physician [id number] Date(s): 10/09/19 - 10/16/19 [facility] Maryregine Se[facility]licos [facility] [address] [facility], [address] [place] [address]- [facility] Attending Physician: Emma Nicholas MD Allergies, Adverse Reactions, Alerts Substance Reaction [...] 10 10/03/02 Given 1Admin Note: ADMIN BY [facility] 2Admin Note: ADMIN BY [facility] 3Admin Note: FLUZONE 4Admin Note: VIS 11/13/2008 given by Deanna Hutson RN 5Admin Note: [id number] GIVEN RN 6Admin Note: VIS 10/01/2006 7Admin [...] 0, 03/05/06 9:37:46, glaucoma, Print FLORIN Number, [id number], Constant Indicator Start Date: 03/05/06 Status: Ordered [...] 10 04/10/12 Active 12ry to cholelithiasis at [facility] in the 2cataract surgery on [place] by Dr Mckinnon on 2002, compliactuion: residual vison is shadows 3acute midsigmoid diverticulitis by abd pelvic CT scan at [facility] colo by Robin Gonzalez M.D.. Internal hemorrhoids; [...] by abd pelvic Ct scan 04/10/12 at [facility]. 10Right renal cysts and renal stones by abd pelvic Ct scan 04/10/12 at [facility]. Vital Signs Most recent to oldest [Reference Range]: 1 Height 0 cm (10/09/19 1:15 PM) Weight 51.36 kg (10/09/19 1:15 PM) Blood Pressure [90-138/55-84 mm Hg] 106/ 62mm Hg (10/09/19 1:15 PM) Blood pressure sites Arm, right (10/09/19 1:15 PM) Weight Obtained Via Standing scale (10/09/19 1:15 PM) Social History Social History Type Response Smoking Status Never smoker entered on: 06/09/16 Sex
--- OUTSIDE RECORDS SUMMARY | 2023-11-24 06:28 | XMS_ITS | Continuity of Care Document ---
Author Organization [facility] Address [address] [place] [address]- Care Team Providers Care Studio Artist Name Role Phone Po Haylee PATRICK Primary Care Physician [phone] Encounter [facility] Date(s): 06/24/22 - 07/24/22 [facility] [address] [place] [address]- [place] Allergies, Adverse Reactions, Alerts Substance Reaction [...] 10 10/03/02 Given 1Admin Note: ADMIN BY [facility] 2Admin Note: ADMIN BY [facility] 3Admin Note: FLUZONE 4Admin Note: VIS 11/13/2008 given by Deanna Hutson RN 5Admin Note: [id number] GIVEN RN 6Admin Note: VIS 10/01/2006 7Admin [...] 0, 03/05/06 9:37:46, glaucoma, Print FLORIN Number, [id number], Constant Indicator Start Date: 03/05/06 Status: Ordered [...] tablet, 0 Refills, Maintenance, 07/16/22 10:39:00 EDT, [facility] #[id number], 147.3, cm, 07/09/22 15:58:00 EDT, Height, 50.9, kg, 02/10/22 15:43:00 EST, Dry Weight Start Date: 07/16/22 Status: Ordered Multivitamin By Mouth, Daily, 0 [...] 1 kit, 0 Refills, Maintenance, 01/24/21 13:40:00 EDT,[facility] #[id number], Partial fill upon... Start Date: 01/24/21 Status: [...] uterus Confirmed Active 12ry to cholelithiasis at [facility] in the 2cataract surgery on by Dr Mckinnon on 2002, compliactuion: residual vison is shadows 3acute midsigmoid diverticulitis by abd pelvic CT scan at [facility] colo by Robin Gonzalez M.D.. Internal [...] by abd pelvic Ct scan 04/10/12 at [facility]. 10Right renal cysts and renal stones by abd pelvic Ct scan 04/10/12 at [facility]. Social History Social History Type Response Smoking Status Never smoker entered on: 06/09/16 Sex Patient Care team information Care Team Personnel Name: Haylee Sanchez MD Position: Reference Physician Member Role: PCP Address: Address: [address] [place] [address]- Care Team Related Persons Name: RENETTA ALCALA Address: home [address] [place] [address] Name: KANU ALCALA Address: [address] [address]
--- OUTSIDE RECORDS SUMMARY | 2023-11-24 06:28 | XMS_ITS | Continuity of Care Document ---
Author Organization [facility] Address [address] [place] [address]- Care Team Providers Care Counter Caser Name Role Phone Haylee Sanchez MD Primary Care Physician Encounter [facility] Date(s): 01/13/20 - 05/12/20 [facility] [address] [place] [email or web address] Attending Physician: Nnamdi Humphrey MD Admitting Physician: [...] influenza virus vaccine, inactivated 3 01/15/10 Gi naivn influenza virus vaccine, inactivated 4 12/26/08 Gi navin influenza virus vaccine, inactivated 5 02/07/08 Gi navin influenza virus vaccine, inactivated 03/05/06 Give n pneumococcal 23-valent vaccine 6 11/14/10 Given hepatitis B adult vaccine 7 06/08/05 Given hepatitis B adult vaccine 8 01/13/05 Given hepatitis B adult vaccine 9 06/23/04 Given tetanus-diphtheria toxoids (Td) 10 10/03/02 Given 1Admin Note: ADMIN BY [facility] 2Admin Note: ADMIN BY [facility] 3Admin Note: FLUZONE 4Admin Note: VIS 11/13/2008 given by Deanna Hutson RN 5Admin Note: [id number] GIVEN ADM. RN 6Admin Note: VIS 10/01/2006 [...] 0, 03/05/06 9:37:46, glaucoma, Print FLORIN Number, [id number], Constant Indicator Start Date: 03/05/06 Status: Ordered Fish Oil oral capsule 2 capsule, By Mouth, Daily, 1000 mg, # 60 capsule, 11 Refills, Maintenance Start Date: 02/04/12 Status: Ordered losartan 25 mg oral tablet 1 tablet = 25 mg, By Mouth, Daily, # 90 tablet, 3 Refills, Maintenance, 03/05/20 9:49:00 EST, Tablet, [facility] #[id number], 152.4, cm, 01/03/20 13:34:00 EDT, Height, 51, [...] 10 04/10/12 Active 12ry to cholelithiasis at [facility] in the 2cataract surgery on [place] by Dr Mckinnon on 2002, compliactuion: residual vison is shadows 3acute midsigmoid diverticulitis by abd pelvic CT scan at [facility] colo by Robin Gonzalez M.D.. Internal hemorrhoids; [...] by abd pelvic Ct scan 04/10/12 at [facility]. 10Right renal cysts and renal stones by abd pelvic Ct scan 04/10/12 at [facility]. Social History Social History Type Response Smoking Status Never smoker entered on: 06/09/16 Sex
--- OUTSIDE RECORDS SUMMARY | 2023-11-24 06:28 | XMS_ITS | Continuity of Care Document ---
Author Organization [facility] Address [address] [place] [address]- Care Team Providers Care Director Women Name Role Phone Po Haylee PATRICK Primary Care Physician [place] [facility] Date(s): 05/11/19 - 05/21/19 [facility] [address] [place] [address]- [facility] Attending Physician: Admtr, [id number] Admitting Physician: Admtr, [...] 10 10/03/02 Given 1Admin Note: ADMIN BY [facility] 2Admin Note: ADMIN BY [facility] 3Admin Note: FLUZONE 4Admin Note: VIS 11/13/2008 given by Deanna Hutson RN 5Admin Note: [id number] GIVEN RN 6Admin Note: VIS 10/01/2006 7Admin [...] 0, 03/05/06 9:37:46, glaucoma, Print FLORIN Number, [id number], Constant Indicator Start Date: 03/05/06 Status: Ordered [...] 10 04/10/12 Active 12ry to cholelithiasis at [facility] in the 2cataract surgery on [place] by Dr Mckinnon on 2002, compliactuion: residual vison is shadows 3acute midsigmoid diverticulitis by abd pelvic CT scan at [facility] colo by Robin Gonzalez M.D.. [...] pelvic Ct scan 04/10/12 at [facility]. 10Right renal cysts and renal stones by abd pelvic Ct scan 04/10/12 at [facility]. Social History Social History Type Response Smoking Status Never smoker entered on: 06/09/16 Sex
--- OUTSIDE RECORDS SUMMARY | 2023-11-24 06:28 | XMS_ITS | Continuity of Care Document ---
Author Organization [facility] Shaylee mica Address [address] [place] [address] [address] [place] [address]- Care Team Providers Care Upholsterer Limousine And Hearse Name Role Phone Po Haylee PATRICK Primary Care Physician Encounter [facility] Date(s): 04/14/21 - 04/21/21 [facility] [address] [place], [place] [address] Attending Physician: Ihsan Baez MD Referring Physician: Sandhya Dela Cruz MD Allergies, Adverse Reactions, Alerts Substance Reaction [...] 10 10/03/02 Given 1Admin Note: ADMIN BY [facility] 2Admin Note: ADMIN BY [facility] 3Admin Note: FLUZONE 4Admin Note: VIS 11/13/2008 given by Deanna Hutson RN 5Admin Note: [id number] GIVEN ADMCharley RN 6Admin Note: VIS 10/01/2006 [...] 0, 03/05/06 9:37:46, glaucoma, Print FLORIN Number, [id number], Constant Indicator Start Date: 03/05/06 Status: Ordered [...] 3 Refills, Maintenance, 03/05/20 9:49:00 EST, Tablet, [facility][id number], 152.4, cm, 01/03/20 13:34:00 EDT, Height, 51, [...] 1 kit, 0 Refills, Maintenance, 01/24/21 13:40:00 EDT[id number], Partial fill upon... Start Date: 01/24/21 Status: [...] 10 04/10/12 Active 12ry to cholelithiasis at [facility] in the 2cataract surgery on [place] by Dr Mckinnon on 2002, compliactuion: residual vison is shadows 3acute midsigmoid diverticulitis by abd pelvic CT scan at [facility] colo by Robin Gonzalez M.D.. Internal [...] pelvic Ct scan 04/10/12 at [facility]. 10Right renal cysts and renal stones by abd pelvic Ct scan 04/10/12 at [facility]. Vital Signs Most recent to oldest [Reference Range]: 1 Height 155 cm (04/14/21 3:18 PM) Weight 49.4 kg (04/14/21 3:18 PM) Pulse Rate [55-90 bpm] 67 bpm (04/14/21 3:18 PM) Body Mass Index [18.5-24.99] 20.56 (04/14/21 3:18 PM) Blood Pressure [90-138/55-84 mm Hg] 113/ 60mm Hg (04/14/21 3:18 PM) Temperature [96.8-100.4 DegF] 97.8 DegF (04/14/21 3:18 PM) Blood pressure sites Arm, left (04/14/21 3:18 PM) Temperature Route Femoral (04/14/21 3:18 PM) Social History Social History Type Response Smoking Status Never smoker entered on: 06/09/16 Sex
--- OUTSIDE RECORDS SUMMARY | 2023-11-24 06:28 | XMS_ITS | Continuity of Care Document ---
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 Name Role Phone Haylee Sanchez MD Primary Care Physician [phone] [id number] Date(s): 09/04/19 - 10/11/19 [facility] Chand[facility] [address] [facility] [place] [address]- [facility] Attending Physician: Emani Escobar MD Admitting Physician: Emani Escobar MD Referring Physician: Haylee Sanchez MD Allergies, [...] 10 10/03/02 Given 1Admin Note: ADMIN BY [facility] 2Admin Note: ADMIN BY [facility] 3Admin Note: FLUZONE 4Admin Note: VIS 11/13/2008 given by Deanna Hutson RN 5Admin Note: [id number] GIVEN ADM. RN 6Admin Note: VIS 10/01/2006 [...] 0, 03/05/06 9:37:46, glaucoma, Print FLORIN Number, [id number], Constant Indicator Start Date: 03/05/06 Status: Ordered [...] 10 04/10/12 Active 12ry to cholelithiasis at [facility] in the 2cataract surgery on [place] by Dr Mckinnon on 2002, compliactuion: residual vison is shadows 3acute midsigmoid diverticulitis by abd pelvic CT scan at [facility] colo by Robin Gonzalez M.D.. Internal [...] abd pelvic Ct scan 04/10/12 at [facility]. 10Right renal cysts and renal stones by abd pelvic Ct scan 04/10/12 at [facility]. Social History Social History Type Response Smoking Status Never smoker entered on: 06/09/16 Sex
--- OUTSIDE RECORDS SUMMARY | 2023-11-24 06:28 | XMS_ITS | Continuity of Care Document ---
Author Organization [facility] Cardiology Address [address] [place] [id number] Care Team Providers Care Software Intern Name Role Phone Po Haylee PATRICK Primary Care Physician Encounter [facility] Date(s): 04/12/20 - 05/12/20 [facility] Cardiology [address] [place] [id number] Attending Physician: Admtr, [id number] Admitting Physician: Admtr, [...] 10 10/03/02 Given 1Admin Note: ADMIN BY [facility] 2Admin Note: ADMIN BY [facility] 3Admin Note: FLUZONE 4Admin Note: VIS 11/13/2008 given by Deanna Hutson RN 5Admin Note: [id number] GIVEN RN 6Admin Note: VIS 10/01/2006 7Admin [...] 0, 03/05/06 9:37:46, glaucoma, Print FLORIN Number, [id number], Constant Indicator Start Date: 03/05/06 Status: Ordered Fish Oil oral capsule 2 capsule, By Mouth, Daily, 1000 mg, # 60 capsule, 11 Refills, Maintenance Start Date: 02/04/12 Status: Ordered losartan 25 mg oral tablet 1 tablet = 25 mg, By Mouth, Daily, # 90 tablet, 3 Refills, Maintenance, 03/05/20 9:49:00 EST, Tablet, [facility] #[id number], 152.4, cm, 01/03/20 13:34:00 EDT, Height, 51, [...] 10 04/10/12 Active 12ry to cholelithiasis at [facility] in the 2cataract surgery on [place] by Dr Mckinnon on 2002, compliactuion: residual vison is shadows 3acute midsigmoid diverticulitis by abd pelvic CT scan at [facility] colo by Robin Gonzalez M.D.. Internal hemorrhoids; [...] abd pelvic Ct scan 04/10/12 at [facility]. 10Right renal cysts and renal stones by abd pelvic Ct scan 04/10/12 at [facility]. Social History Social History Type Response Smoking Status Never smoker entered on: 06/09/16 Sex
== END 2023-11-19 08:44 | disposition home or self-care (01) ==
LOC: HO.HWS 08:16
PROVIDERS: PCP Internal Medicine; Visit Provider Obstetrics & Gynecology
DX: N81.4 Uterovaginal prolapse, unspecified (principal); N90.7 Vulvar cyst
CPT/HCPCS: 99213

== ENCOUNTER → 2023-11-19 08:16 | Outpatient (BNVA) | payer OTHER, SELFPAY | PROVIDERS: PCP Internal Medicine; Visit Provider Obstetrics & Gynecology | DX: N81.4 Uterovaginal prolapse, unspecified (principal); Z87.42 Personal history of other diseases of the female genital tract | CPT/HCPCS: 99212 ==

== ENCOUNTER 2024-01-11 07:59 | Outpatient (REF) | payer OTHER, SELFPAY ==
[2024-01-11 08:12] LABS: MANUAL DIFF FLAG NO
[2024-01-11 08:27] LABS: Basophils Percent Auto 0.9 % (0-2); Eosinophils Absolute Auto 0.2 X10*3/uL (0.0-0.4); Eosinophils Percent Auto 5.1 % (0-4); Hematocrit 39.3 % (37.0-47.0); Hemoglobin 13.4 g/dl (12.0-16.0); Imm Gran Abs Auto 0.01 X10*3/uL (0.00-0.03); Imm Gran Pct Auto 0.2 % (0.0-0.4); Lymphocytes Absolute Auto 1.6 X10*3/uL (1.2-4.9); Lymphocytes Percent Auto 34.7 % (20-40); Mean Corpuscular HGB Conc 34.1 g/dl (31.0-35.0); Mean Corpuscular Hemoglobin 33.3 pg (27.0-33.0); Mean Corpuscular Volume 97.8 fL (80.0-98.0); Mean Platelet Volume 9.7 fL (9.4-12.3); Monocytes Absolute Auto 0.4 X10*3/uL (0.1-1.2); Monocytes Percent Auto 8.5 % (2-11); Neutrophils Absolute Auto 2.3 x10*3/uL (2.0-8.3); Neutrophils Percent Auto 50.6 % (45-73); Platelet Count 313 X10*3/uL (160-400); Red Blood Count 4.02 X10*6/uL (4.20-5.50); Red Cell Distribution Width 12.6 % (11.0-16.0); White Blood Count 4.5 X10*3/uL (4.8-10.8)
[2024-01-11 09:15] LABS: Alanine Aminotransferase 21 U/L (0-31); Alkaline Phosphatase 42 U/L (39-117); Anion Gap 11 (12-20); Aspartate Amino Transferase 21 U/L (5-31); Bilirubin Total 0.5 mg/dL (0.0-1.0); Blood Urea Nitrogen 20 mg/dL (9-16); Calcium 9.9 mg/dL (8.4-10.2); Carbon Dioxide 30 mmol/L (22-29); Chloride 105 mmol/L (96-108); Cholesterol 182 mg/dL (<200); Estimated Glomerular Filt Rate > 60; Glucose Random 111 mg/dL (60-115); HDL Cholesterol 54 mg/dL (>40); LDL Cholesterol Calculated 108 mg/dL (<100); Potassium 3.7 mmol/L (3.3-5.1); Sodium 142 mmol/L (135-145); Triglycerides 103 mg/dL (<150)
[2024-01-11 09:24] LABS: Free T4 (Free Thyroxine) 1.05 ng/dL (0.71-1.85); Thyroid Stimulating Hormone 4.76 uIU/mL (0.32-4.0); Vitamin D 25-OH Total 46.2 ng/mL (>30)
[2024-01-11 09:27] LABS: Estimated Average Glucose 120 mg/dL; Hemoglobin A1C 137.2195 umol/L; Hemoglobin A1c % 5.8 % (<6.0); Total Hemoglobin (HGBA1C) 3438.5916 umol/L
[2024-01-11 09:36] LABS: Folate 13.1 ng/mL (> or = 4.0); Vitamin B12 366 pg/mL (200-900)
== END 2024-01-11 08:00 | disposition home or self-care (01) ==
LOC: HO.LAB 07:59
PROVIDERS: PCP Internal Medicine; Visit Provider Internal Medicine
DX: E78.00 Pure hypercholesterolemia, unspecified (principal); Z13.1 Encounter for screening for diabetes mellitus
CPT/HCPCS: 36415; 80053; 80061; 82306; 82607; 82746; 83036; 84439; 84443; 85025

== ENCOUNTER 2024-01-17 09:31 | Outpatient (AMB) | payer OTHER, SELFPAY ==
--- NOTE | 2024-01-17 09:32 | MHC.PC.OV ---
Vital Signs 01/17/24 09:34 Height 4 ft 11 in Weight 112 lb BMI 22.6 BP 110/66 Blood Pressure Location Lt brachial Position Sitting Pulse 80 Pulse Source Pulse Oximeter Pulse Oximetry (%) 98 Oxygen Delivery Method Room Air Intake Visit Reasons: 6 month Intake Note: Patient is here to follow up on HTN, IGT, Hypercholesterolemia. Pt decline flu shot today Bacon Skinner Required: No Shine Worker: Present Accompanied by: Daughter Allergies amlodipine Allergy (Unknown, Verified 01/17/24 09:33) swelling metoprolol Allergy (Unknown, Verified 01/17/24 09:33) Unknown pravastatin Allergy (Unknown, Verified 01/17/24 09:33) Unknown simvastatin Allergy (Unknown, Verified 01/17/24 09:33) Unknown Tobacco use date assessed: 01/17/24 Fall risk assessment: No Falls in past year Last assessed Fall Risk: 01/17/24 Dental Screening Dental Screen Date: 07/12/23 HPI 6 month HPI Details 78-year-old female with impaired glucose tolerance hypercholesterolemia hypertension generalized anxiety disorder osteoporosis last seen in July 2023. Patient's colonoscopy last done in June 2021. Declined mammogram last bone density was July 2023. Review of the notes had an ER visit in December 09 with left-sided neck pain diagnosis of neck strain and was given tizanidine. Patient also followed up with gynecology left labial cyst drain. Examination also showing cystocele and prolapse with assist. Patient has also seen Cardiology November 17 2023. Diagnosis of left bundle branch block palpitations normal EF echo no further cardiac workup and taking losartan as needed only. Bone density done in July 2023 left femur 4.1% increase from previous spine 0.8 increased from previous diagnosis though of osteoporosis. January blood work showing impaired glucose tolerance with a mildly elevated TSH. With LDL of 108. [facility], [facility] Medical History (Updated 01/17/24 @ 09:52 by Haylee Sanchez MD) Osteopenia Generalized anxiety disorder Pelvic pain Pelvic pain Urethral disorder, unspecified Vaginal mass Fibroids Finger avulsion Diverticulitis Osteoporosis Cognitive impairment Glaucoma Cardiomyopathy Hypercholesterolemia Complex renal cyst Restless leg syndrome Insomnia Hypertension Surgical History History of eye surgery Status post excision of lipoma Corneal transplant status History of cholecystectomy Family History Father Prostate cancer Mother No problems noted. Brother No problems noted. Sister Endometrial cancer Daughter No problems noted. Social History Housing: Apartment Alcohol intake: never Patient Tobacco Use Status: Never used Tobacco e-Cigarette/Vaping Use: Never Used Second Hand Smoke Exposure: No service: No Current occupational status: retired Gender identity: Female Cognitive needs: Yes Hearing needs: No Vision needs: Yes Questionnaire Thrive Questionnaire Date Thrive assessed: 07/12/23 Are you currently unemployed and looking for a job?: No RAYMOND-7 AMB Questionnaire RAYMOND-7 Date RAYMOND - 7 assessed: 07/12/23 Source: Developed by Drs. Greg Cook, Jagruti Brandon, Heber Young and colleagues, with an educational daxa from [employer]. Physical exam (Primary Care) Vital Signs: Last Vital Signs Pulse 80 01/17/24 09:34 BP 110/66 01/17/24 09:34 Pulse Ox 98 01/17/24 09:34 Oxygen Delivery Method Room Air 01/17/24 09:34 BMI result Body Mass Index 22.6 Tobacco/Smoking Status: Tobacco use Status Tobacco use date assessed 01/17/24 01/17/24 09:41 Patient Tobacco Use Status Never used Tobacco 01/17/24 09:41 e-Cigarette/Vaping Use Never Used 01/17/24 09:41 Thrive Assessment: Date of Thrive Assessment Date Thrive assessed 07/12/23 01/17/24 09:41 Const General: alert; No acute distress Eyes Conjunctivae: conjunctivae normal Resp Auscultation: clear to auscultation bilaterally Cardio Rate: regular rate Rhythm: regular rhythm GI Inspection: Yes normal to inspection Extrem General: Yes normal to inspection and No edema Coding Level of Care Code Est Pt Level 4 (16576) Diagnoses Osteoporosis M81.0 Cystocele with prolapse N81.4 Impaired fasting blood sugar R73.01 Hypercholesterolemia E78.00 Essential hypertension I10 Hypertension type: essential hypertension Assessment & Plan Assessment & Plan (1) Osteoporosis: Comment: July 2023 Code(s): M81.0 - Age-related osteoporosis without current pathological fracture Category: Medical Plan: Discussed about calcium and vitamin-D and discussed also about medications to help with bones. (2) Cystocele with prolapse: Comment: Central with paravaginal bilateral defect cystocele, moderate uterine prolapse Code(s): N81.4 - Uterovaginal prolapse, unspecified Category: Medical Plan: Patient continue to follow-up with gynecology (3) Impaired fasting blood sugar: Code(s): R73.01 - Impaired fasting glucose Category: Medical Plan: Decrease the amount of carbohydrate intake, pasta, bread, rice and potatoes are all sugar and that is aside from all the sweet stuff, remember that fruits are good but they are Sweet also. (4) Hypercholesterolemia: Code(s): E78.00 - Pure hypercholesterolemia, unspecified Category: Medical Plan: Avoid fried foods, chicken skin, eggs, butter margarine, pastries and meat. Be it pork or beef they have a lot of cholesterol presently on atorvastatin 10 mg once a day (5) Hypertension: Comment: Patient has seen Cardiology November 2023 note losartan p.r.n. only Code(s): I10 - Essential (primary) hypertension Category: Medical Qualifiers: Hypertension type: essential hypertension Qualified Code(s): I10 - Essential (primary) hypertension Plan: Patient has seen Cardiology and blood pressure has been fairly controlled and takes losartan p.r.n. only.
[2024-01-17 09:34] VITALS: BP 110/66; PULSE 80; O2SAT 98; BMI 22.6
== END 2024-01-17 10:10 | disposition home or self-care (01) ==
PROVIDERS: PCP Internal Medicine; Visit Provider Internal Medicine
DX: M81.0 Age-related osteoporosis without current pathological fracture (principal); N81.4 Uterovaginal prolapse, unspecified; R73.01 Impaired fasting glucose; E78.00 Pure hypercholesterolemia, unspecified; I10 Essential (primary) hypertension

== ENCOUNTER → 2024-01-17 09:31 | Outpatient (BNVA) | payer OTHER, SELFPAY | PROVIDERS: PCP Internal Medicine; Visit Provider Internal Medicine | DX: R73.01 Impaired fasting glucose (principal); M81.0 Age-related osteoporosis without current pathological fracture; N81.4 Uterovaginal prolapse, unspecified; E78.00 Pure hypercholesterolemia, unspecified; I10 Essential (primary) hypertension | CPT/HCPCS: 99212 ==

== ENCOUNTER 2024-06-12 11:25 | Outpatient (AMB) | payer OTHER, SELFPAY ==
[2024-06-12 11:28] VITALS: BP 132/70; PULSE 73; O2SAT 98; BMI 22.0
--- NOTE | 2024-06-12 11:28 | MHC.PC.OV ---
Vital Signs 06/12/24 11:28 Height 4 ft 11 in Weight 109 lb BMI 22.0 BP 132/70 Blood Pressure Location Lt brachial Position Sitting Pulse 73 Pulse Source Pulse Oximeter Pulse Oximetry (%) 98 Oxygen Delivery Method Room Air Intake Visit Reasons: Legs Pain Allergies amlodipine Allergy (Unknown, Verified 06/12/24 11:28) swelling metoprolol Allergy (Unknown, Verified 06/12/24 11:28) Unknown pravastatin Allergy (Unknown, Verified 06/12/24 11:28) Unknown simvastatin Allergy (Unknown, Verified 06/12/24 11:28) Unknown atorvastatin [From Lipitor] Adverse Reaction (Intermediate, Unverified 06/12/24 11:49) muscle aches Medication List - Last Reconciled 06/12/24 by Haylee Sanchez MD blood pressure monitor (Blood Pressure Kit) As directed blood pressure test kit-medium As directed compress.stocking,knee,reg,med As directed 20-30 mm mercury dorzolamide-timolol 22.3-6.8 mg/mL 1 drp ophthalmic (eye) BID multivitamin 1 tab PO DAILY prednisolone acetate 1% drps ophthalmic (eye) Tobacco use date assessed: 06/12/24 Fall risk assessment: No Falls in past year Last assessed Fall Risk: 06/12/24 Dental Screening Dental Screen Date: 06/12/24 Did you have a dental visit in the last 12 months?: Yes Did you have a dental problem in the last 6 months where you did not have access to dental care?: No Was dental information given to patient?: Patient has dentist [facility] Medical History (Updated 06/12/24 @ 11:56 by Haylee Sanchez MD) Osteopenia Generalized anxiety disorder Pelvic pain Pelvic pain Urethral disorder, unspecified Vaginal mass Fibroids Finger avulsion Diverticulitis Osteoporosis Cognitive impairment Glaucoma Cardiomyopathy Hypercholesterolemia Complex renal cyst Restless leg syndrome Insomnia Hypertension Surgical History History of eye surgery Status post excision of lipoma Corneal transplant status History of cholecystectomy Family History Father Prostate cancer Mother No problems noted. Brother No problems noted. Sister Endometrial cancer Daughter No problems noted. Social History (Reviewed 01/17/24 @ 09:32 by PRETTY Garcia Housing: Apartment Alcohol intake: never Patient Tobacco Use Status: Never used Tobacco Tobacco use type: Cigarette e-Cigarette/Vaping Use: Never Used Second Hand Smoke Exposure: No service: No Current occupational status: retired Gender identity: Female Cognitive needs: Yes Hearing needs: No Vision needs: Yes Questionnaire PHQ-9 Over the last 2 weeks, how often have you been bothered by any of the following problems? 1. Little interest or pleasure in doing things: not at all 2. Feeling down, depressed, or hopeless: not at all 3. Trouble falling or staying asleep, or sleeping too much: not at all 4. Feeling tired or having little energy: not at all 5. Poor appetite or overeating: not at all 6. Feeling bad about yourself - or that you are a failure or have let yourself or your family down: not at all 7. Trouble concentrating on things, such as reading the newspaper or watching television: not at all 8. Moving or speaking so slowly that other people could have noticed. Or the opposite - being so fidgety or restless that you have been moving around a lot more than usual: not at all 9. Thoughts that you would be better off or of hurting yourself in some way: not at all Total score: 0 Depression Screening Interpretation: Negative Depression Screening Done: Yes Source: Developed by Drs. Greg Cook, Jagruti Brandon, Heber Young and colleagues, with an educational daxa from [employer]. Thrive Questionnaire Date Thrive assessed: 06/12/24 I am a: Patient What is your living situation today?: I have a steady place to live Within the past 12 months, did the food you bought not last and you didn't have the money to get more?: Never true Within the past 12 months, did you worry whether your food would run out before you got money to buy more?: Never true Do you have trouble paying for medicines?: No Do you have trouble getting transportation to medical appointments?: No Do you have trouble paying your heating and electricity bill?: No Do you have trouble taking care of your child, family member or friend?: No Do you have trouble with day-to-day activities such as bathing, preparing meals, shopping, managing finances, etc.?: No Are you currently unemployed and looking for a job?: No Are you interested in more education?: No Currently or been in a relationship where the following occur: No concerns reported THRIVE Score: 0 AUDIT C Alcohol Use Questionnaire (AUDIT-C) 1. How often do you have a drink containing alcohol?: Never Total Score: 0 RAYMOND-7 AMB Questionnaire RAYMOND-7 Date RAYMOND - 7 assessed: 06/12/24 Feeling nervous, anxious, or on edge: 0 = Not at all Not being able to stop or control worryin = Not at all Worrying too much about different things: 0 = Not at all Trouble relaxin = Not at all Being so restless that it is hard to sit still: 0 = Not at all Becoming easily annoyed or irritable: 0 = Not at all Feeling afraid as if something awful might happen: 0 = Not at all Total RAYMOND-7 score (0-4 normal; 5-9 mild; 10-14 moderate; 15-21 severe): 0 Source: Developed by Drs. Greg Cook, Jagruti Brandon, Heber Young and colleagues, with an educational daxa from [employer]. Physical exam (Primary Care) Vital Signs: Last Vital Signs Pulse 73 06/12/24 11:28 BP 132/70 06/12/24 11:28 Pulse Ox 98 06/12/24 11:28 Oxygen Delivery Method Room Air 06/12/24 11:28 BMI result Body Mass Index 22.0 Tobacco/Smoking Status: Tobacco use Status Tobacco use date assessed 06/12/24 06/12/24 11:35 Patient Tobacco Use Status Never used Tobacco 06/12/24 11:35 Tobacco use type Cigarette 06/12/24 11:35 e-Cigarette/Vaping Use Never Used 06/12/24 11:35 PHQ-9: PHQ-9 Score PHQ-9: Total score 0 06/12/24 11:42 Depression Screening Interpretation: Negative Thrive Assessment: Date of Thrive Assessment Date Thrive assessed 06/12/24 06/12/24 11:35 Currently or been in a relationship where the following occur: No concerns reported Const General: alert; No acute distress Eyes Conjunctivae: conjunctivae normal Resp Auscultation: clear to auscultation bilaterally Cardio Rate: regular rate Rhythm: regular rhythm GI Inspection: Yes normal to inspection Extrem General: Yes normal to inspection and No edema Coding Level of Care Code Est Pt Level 4 (80229) Diagnoses Mild cognitive impairment G31.84 Essential hypertension I10 Hypertension type: essential hypertension Hypercholesterolemia E78.00 Impaired fasting blood sugar R73.01 Cramps of right lower extremity R25.2 Assessment & Plan Assessment & Plan (1) Mild cognitive impairment: Comment: Vascular January 2024 [facility] Code(s): G31.84 - Mild cognitive impairment of uncertain or unknown etiology Category: Medical Plan: Supportive treatment (2) Hypertension: Comment: Patient has seen Cardiology November 2023 note losartan p.r.n. only Code(s): I10 - Essential (primary) hypertension Category: Medical Qualifiers: Hypertension type: essential hypertension Qualified Code(s): I10 - Essential (primary) hypertension Plan: Continue with blood pressure medication. Decrease salt intake and exercise on losartan 25 mg once a day (3) Hypercholesterolemia: Code(s): E78.00 - Pure hypercholesterolemia, unspecified Category: Medical Plan: Avoid fried foods, chicken skin, eggs, butter margarine, pastries and meat. Be it pork or beef they have a lot of cholesterol (4) Impaired fasting blood sugar: Code(s): R73.01 - Impaired fasting glucose Category: Medical Plan: Decrease the amount of carbohydrate intake, pasta, bread, rice and potatoes are all sugar and that is aside from all the sweet stuff, remember that fruits are good but they are Sweet also. 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 She cites inconsistencies in administering losartan due to hypotensive episodes, impacting blood pressure regulation. Previous lipid panels have displayed dietary and medication-induced variability in cholesterol levels, with noted muscle cramping complicating current treatment options. Routine blood work revealed marginal thyroid aberrations and mild leukopenia, prompting additional testing. Concerns of symptomatic leg cramps align with potential deficiencies or activity levels, warranting further exploration through lab diagnostics. Health Maintenance - Colonoscopy last performed in June 2021 - Patient declined mammography - Bone density test conducted in July 2023 - Blood work completed in January 2024 indicating normal renal function, normocytic anemia, mild leukopenia - Hemoglobin A1c at 5.8, indicating prediabetes - Thyroid-stimulating hormone slightly elevated at 4.76 - Regular monitoring of blood pressure and cholesterol recommended - Repeat blood work pending for complete lipid profile and thyroid evaluation Social History - Exercise routines impacted by the lack of consistent access to a gym - Presumptive diet adjustments instituted, opting against oils as part of perceived cholesterol management Review of Systems - Cardiovascular: Reports variable blood pressure readings. - Musculoskeletal: Reports right leg cramps at night. - Endocrine: New observation of mild leukopenia. - Neurological: History of cognitive issues diagnosed as ischemic vascular disease and vascular MCI; denies depression symptoms. Physical Exam - Cardiovascular- Regular heart rate noted, with auscultation revealing no significant abnormalities. - Inspection of circulation in lower limbs demonstrated no detected edema or significant deficits in perfusion. Results - Labs: Blood work from January 2024 revealing normal blood count with mild leukopenia, HbA1c at 5.8, normal electrolytes, and renal function, LDL at 108 mg/dL, and TSH at 4.76. Plan To manage the chronic care issues, we will reinforce BP management strategies with a possible revision to antihypertensive regimens encouraging routine home measurements. Hypercholesterolemia management will involve follow-up lipid panels and exploration of altered statin regimens or adjunct treatments due to adverse effects. Scheduled labs will investigate leukopenia and thyroid function to appropriately guide interventions. Leg cramp management includes lifestyle adjustments and fluid balance correction thereafter supported by blood test outcomes. Patient was informed and verbally consented to the use of an ambient scribe for clinic note documentation during this visit. Discussion Notes I discussed with the patient the need for consistent medication compliance, particularly concerning blood pressure and cholesterol management, explaining the risks of stroke and cardiovascular events associated with elevated levels. We reviewed blood test requisitions to discern thyroid function and leukocyte status while considering supplemental treatment avenues pending results. For leg cramps, I indicated potential causes and introduced corrective behavioral advice while awaiting definitive lab results. Follow-up appointments and return precautions were outlined, mindful of potential emerging infections like COVID-19 during this season. Patient Instructions - Maintain daily monitoring of blood pressure and report if levels exceed 140/90 mmHg. - Ensure you are fasting prior to upcoming lab tests. - Take losartan consistently as prescribed unless otherwise advised. - Record any new or abnormal muscle cramps and bring it to the next consultation. - Make lifestyle modifications to manage cholesterol, focusing on a healthy diet and moderate exercise. - Be cautious of the flu, COVID-19, and RSV prevalent this time of year. Orders: Orders Complete Blood Count Auto Diff Today E78.00 - Pure hypercholesterolemia, unspecified Lipid Panel Today E78.00 - Pure hypercholesterolemia, unspecified Hemoglobin A1c Today E78.00 - Pure hypercholesterolemia, unspecified Vitamin B12 and Folate Today E78.00 - Pure hypercholesterolemia, unspecified Magnesium Today E78.00 - Pure hypercholesterolemia, unspecified Comprehensive Met. Panel Today E78.00 - Pure hypercholesterolemia, unspecified Thyroid Stimulating Hormone Today E78.00 - Pure hypercholesterolemia, unspecified Free T4 (Free Thyroxine) Today E78.00 - Pure hypercholesterolemia, unspecified
--- OUTSIDE RECORDS SUMMARY | 2024-06-12 13:01 | XMS_ITS | Data Portability ---
Author Organization [place] - [facility], [facility] Address [address] [place] [phone] Assessment Encounter Date Assessment Date Assessment LastModified by Organization Details LastModified Time 12/01/2023 12/01/2023 Patient with mil d cognitive impairment noted to have borderline normal to moderate sensorineural hearing loss with good speech discrimination scores. She is a borderline candidate for amplification at this point is not interested in having any hearing aids. I have suggested follow-up audiometric testing in 1 year vel Not available 12/01/2023 15:18:03 Plan of Treatment Reminders Order Date Submit Date Provider Last Modified By Organization Details Last Modified Time Details Appointments Hearing Test 2024 10:30A M Hearing Test Not available Not available Not available Establish ed 15 2024 11:15A M MANUELITO VILLASENOR PA-C Not available Not available Not available Lab None recorded. Referral None recorded. Procedures None recorded. Surgeries None recorded. Imaging None recorded. Medication Orders None recorded. Patient TargetsNo targets recorded. Patient InstructionsNo instructions recorded. Reason for Referral None Reported. Results Created Date Observation Date Name Description Value Unit Range Abnormal Flag Note LastModifiedBy Organization Detail LastModifiedTime 11/24/1904/07/2018 imagi ng/di agnos tic resul t No observ ation record ed. [email or web address] Not Available 18:10:22 11/24/19 24 05/31/2018 imagi ng/di agnos tic resul t No observ ation record ed. [email or web address] Not Available 18:10:33 12/02/19 audio gram No observ ation record ed. [email or web address] Not Available 2023 09:15:09 Result Notes None recorded. Problems Name Problem SNOMED Code Status Onset Date Resolution Date Notes Provider Name and Address Organization Details Recorded Time Mass of neck 970726354 Active 2017 Localized swelling, mass and lump, neck; Note: Date Diagnosed: 02/03/2018 2:05 PM (R22.1) Not Available [facility] 4 02:57:30 Neck swelling 585268780 Active 2017 Localized swelling, mass and lump, neck; Note: Date Diagnosed: 02/03/2018 2:05 PM (R22.1) Not Available [facility] 4 02:57:30 Chronic rhinitis 89689772 Active 2017 Chronic rhinitis; Note: Date Diagnosed: 02/03/2018 2:05 PM (J31.0) Not Available [facility] 4 02:57:28 Sensorine ural hearing loss of bilateral ears 026609309 Active 2023 GILA BROWN [address] [place] [address],[place] [address], [place], [address] , [facility] 4 15:03:43 Mild neurocogn itive disorder 342296509 Active 2023 KAROLINE CRABTREE MD [address] [facility],[place] [address], [facility] [place], [address] , [facility] - [facility] [place] 4 15:19:06 Problem Notes None recorded. Procedures Surgical History Date Name Laterality Status Provider Name and Address Organization Details Recorded Time 4 Comp Audio with Tymps (01925 & 66789) completed GILA BROWN [address] [facility],[place] [address], [place], [address], [facility] - [facility] 12/01/2023 15:03:36 Eye Surgery completed Ra [facility] 12/01/2023 14:33:03 Imaging Results Imaging Date Name Status [facility] by [facility] Details LastModified Time 04/07/2018 imaging/diagno stic result completed Information not available 11/24/2023 18:10:22 05/31/2018 imaging/diagno stic result completed Information not available 11/24/2023 18:10:33 12/02/2023 audiogram completed [email or web address] Information no t available 12/02/2023 09:15:09 Procedure Notes None recorded. Medical Equipment None Reported. Allergies Allergen ID Allergen Name Allergen Category Reaction Reaction Severity Criticality Documentation Date Start Date Code Code System Note Provider Name and Address Organization Details Recorded Time 23377 brimonidi ne tartrate medicatio n other Not available Not available 08/17/2023 61866 RxNorm React ion: unkno wn, unspe cifie d;; Not Available [facility] 00:48:43 Medications Name Sig Start Date Stop Date Status Note LastModified by Organization Details LastModified Time amoxicill in 500 mg capsule TAKE 1 CAPSULE BY MOUTH EVERY 6 HOURS UNTIL GONE 11/30 completed Not Available Not Available Not Available latanopro st 0.005 % eye drops 2017 active Medicati on ID: [id number] D uration Value: 50 Brand Name: latanopr ost Send Method: E-Prescr ibed Sub s Allowed: subs OK Speci al Instruct ion: place 1 drop into left eye NIGHTLY Medicati onGeneri cName: latanopr ost Not Available Not Available Not Available paroxetin e 10 mg tablet TAKE 1 TABLET BY MOUTH AT BEDTIME active Not Available Not Available No t Available alendrona te 5 mg tablet 2017 active Medicati on ID: [id number] D uration Value: 90 Brand Name: alendron ate Send Method: E-Prescr ibed Sub s Allowed: subs OK Medic ationGen ericName : alendron ate Not Available Not Available Not Available atorvasta tin 10 mg tablet TAKE 1 TABLET BY MOUTH DAILY active Not Available Not Available No t Available azithromy coby 250 mg tablet TAKE 2 TABLETS BY MOUTH FOR 1 DAY THEN TAKE 1 TABLET BY MOUTH DAILY FOR 4 DAYS 11/30 completed Not Available Not Available Not Available losartan 100 mg-hydroc hlorothia zide 25 mg tablet 11/30 completed Medicati on ID: [id number] D uration Value: 90 Brand Name: losartan -hydroch lorothia zide Sen d Method: E-Prescr ibed Sub s Allowed: subs OK Medic ationGen ericName : losartan -hydroch lorothia zide Not Available Not Available Not Available prednisol one acetate 1 % eye drops,palak pension SHAKE LIQUID AND INSTILL 1 DROP IN EACH EYE THREE TIMES DAILY active Not Available Not Available No t Available losartan 25 mg tablet TAKE 1 TABLET BY MOUTH DAILY active Not Available Not Available No t Available dorzolami de 22.3 mg-timolo l 6.8 mg/mL eye drops INSTILL 1 DROP INTO EACH EYE TWICE DAILY active Not Available Not Available No t Available timolol maleate 0.5 % eye drops 2017 active Medicati on ID: [id number] D uration Value: 50 Brand Name: timolol maleate Send Method: E-Prescr ibed Sub s Allowed: subs OK Speci al Instruct ion: instill 1 drop into right eye twice a day Medi cationGe nericNam e: timolol maleate Not Available Not Available Not Available fluticaso ne propionat e 50 mcg/actua tion nasal spray,palak pension 2017 active Medicati on ID: [id number] B rand Name: Flonase Send Method: E-Prescr ibed Sub s Allowed: subs OK Speci al Instruct ion: 2 spray each nostril BID Medi cationGe nericNam e: Flonase Medicati on ID: [id number] B rand Name: Flonase Send Method: E-Prescr ibed Sub s Allowed: subs OK Speci al Instruct ion: 2 spray each nostril BID Medi cationGe nericNam e: Flonase Not Available Not Available Not Available moxifloxa coby 0.5 % eye drops INSTILL 1 DROP IN RIGHT EYE FOUR TIMES DAILY FOR 4 DAYS active Not Available Not Available No t Available Calcium 600 + D(3) 600 mg-5 mcg (200 unit) tablet 2017 active Medicati on ID: [id number] D uration Value: 30 Brand Name: Calcium 600 + D(3) Sen d Method: E-Prescr ibed Sub s Allowed: subs OK Medic ationGen ericName : Calcium 600 + D(3) Not Available Not Available Not Available Flovent Diskus 50 mcg/actua tion powder for inhalatio n 2017 active Medicati on ID: [id number] P rescribe d By Name: Sanjay Funes M.D. Bra nd Name: Flonase Send Method: E-Prescr ibed Sub s Allowed: subs OK Speci al Instruct ion: 2 spray each nostril BID Medi cationGe nericNam e: Flonase Not Available Not Available Not Available Rhopressa 0.02 % eye drops 11/30 completed Medicati on ID: [id number] D uration Value: 45 Brand Name: Rhopress a Send Method: E-Prescr ibed Sub s Allowed: subs OK Medic ationGen ericName : Rhopress a Not Available Not Available Not Available Vitals None Recorded Social History None recorded. Functional Status None recorded. Mental Status None recorded. Family History Nothing Reported. Medical History No medical history recorded. Gynecological HistoryNo gynecological history recorded. Obstetrics History GPAL:G 0 P 0 0 0 0 Past Encounters Encounter ID Performer Location Encounter Start Date Encounter Closed Date Diagnosis/Indication Diagnosis SNOMED-CT Code Diagnosis ICD10 Code Diagnosis Note [id number] KAROLINE CRABTREE MD [facility] [address] [address] 12/01/2023 14:01:20 12/01/2023 15:20:24 Sensorineural hearing loss of bilateral ears 896562402 H90.3 Right Ear:Border line normal hearing through 4K Hz sloping to a moderate SNHL with excellent speech discrimina tion.Type As tympanogra m.Left Ear:Border line normal hearing through 4K Hz sloping to a moderate SNHL with excellent speech discrimina tion.Type As tympanogra m. Mild neuro cognitive disorder 129767762 G31.84 Health Concerns Section Related Observation LastModified by Organization Detai ls LastModified Time None Recorded Concern Status LastModified by Organization Details LastModified Time None Recorded Advance Directives Directive None Recorded Payers Encounter Date Sequence Insurance Name Policy Number Policy Kilpatrick Covered Member ID Kilpatrick Member ID Guarantor Name 12/01/2023 1 [facility] - DOS ON OR AFTER 2022 - ONE CARE (MEDICARE REPLACEMENT/ADV ANTAGE - HMO) Dilma Crump [id number] Dilma Crump Notes Date Note Type Note Provider Name and Address Organization Details Recorded Time 12/01/2023 text/html Mild cognitive impairment. Seen for HL at request of geriatric medicine. Patient does not really notice any difficulties. No tinnitus KAROLINE MIRANDA MD [address] [place] [address], [place], [address], [facility] - [facility] 12/01/2023 15:19:22 OBGyn Episode No OBEpisode recorded.
== END 2024-06-12 12:01 | disposition home or self-care (01) ==
PROVIDERS: PCP Internal Medicine; Visit Provider Internal Medicine
DX: G31.84 Mild cognitive impairment of uncertain or unknown etiology (principal); I10 Essential (primary) hypertension; E78.00 Pure hypercholesterolemia, unspecified; R73.01 Impaired fasting glucose; R25.2 Cramp and spasm

== ENCOUNTER → 2024-06-12 11:25 | Outpatient (BNVA) | payer OTHER, SELFPAY | PROVIDERS: PCP Internal Medicine; Visit Provider Internal Medicine | DX: G31.84 Mild cognitive impairment of uncertain or unknown etiology (principal); I10 Essential (primary) hypertension; E78.00 Pure hypercholesterolemia, unspecified; R25.2 Cramp and spasm; R73.01 Impaired fasting glucose | CPT/HCPCS: 99212 ==

== ENCOUNTER 2024-07-12 08:45 | Outpatient (REF) | payer OTHER, SELFPAY ==
[2024-07-12 08:57] LABS: MANUAL DIFF FLAG NO
--- OUTSIDE RECORDS SUMMARY | 2024-07-12 09:07 | XMS_ITS | Data Portability ---
Author Organization [place] - [facility], [facility] Address [address] [place] [address] Assessment Encounter Date Assessment Date Assessment LastModified [...] Organization Details Recorded Time Mass of neck 056245751 Active 2017 Localized swelling, mass and lump, neck; Note: Date Diagnosed: 02/03/2018 2:05 PM (R22.1) Not Available [facility] 4 02:57:30 Neck swelling 365495110 Active 2017 Localized swelling, mass and lump, neck; Note: Date Diagnosed: 02/03/2018 2:05 PM (R22.1) Not Available [facility] 4 02:57:30 Chronic rhinitis 17263640 Active 2017 Chronic rhinitis; Note: Date Diagnosed: 02/03/2018 2:05 PM (J31.0) Not Available [facility] 4 02:57:28 Sensorine ural hearing loss of bilateral ears 572302805 Active 2023 GILA BROWN [address] [place] [address],[place] [address], [place], [address] , [facility] - [facility] [place] 4 15:03:43 Mild neurocogn itive disorder 547983302 Active 2023 KAROLINE CRABTREE MD [address] [facility],[place] [address], [place], [address] , [facility] - [facility] [place] 4 15:19:06 Problem Notes None recorded. Procedures Surgical History Date Name Laterality Status Provider Name and Address Organization Details Recorded Time 4 Comp Audio with Tymps (89000 & 15531) completed GILA BROWN [address] [facility],[place] [address], [place], [address], [facility] - [facility] [place] 12/01/2023 15:03:36 Eye Surgery completed Ra [facility] [place] 12/01/2023 14:33:03 Imaging Results Imaging Date Name Status LastModified by [facility] Details LastModified Time 04/07/2018 imaging/diagno stic [...] Name and Address Organization Details Recorded Time 87625 brimonidi ne tartrate medicatio n other Not available Not available 08/17/2023 08489 RxNorm React ion: unkno wn, unspe cifie d;; Not Available [facility] 00:48:43 Medications Name Sig Start Date Stop Date Status Note LastModified by Organization Details LastModified Time amoxicill in 500 mg capsule TAKE 1 CAPSULE BY MOUTH EVERY 6 HOURS UNTIL GONE 11/30 completed Not Available Not Available Not Available latanopro st 0.005 % eye drops 2017 active Medicati on ID: [id number] D uration Value: 50 Brand Name: latanopr [...] mg tablet 2017 active Medicati on ID: [id number] D uration Value: 90 Brand Name: alendron [...] mg tablet 11/30 completed Medicati on ID: [id number] D uration Value: 90 Brand Name: losartan [...] eye drops 2017 active Medicati on ID: [id number] D uration Value: 50 Brand Name: timolol maleate Send Method: E-Prescr ibed Sub s Allowed: subs OK Speci al Instruct ion: instill 1 drop into right eye twice a day Medi cationGe nericNam e: timolol maleate Not Available Not Available Not Available fluticaso ne propionat e 50 mcg/actua tion nasal spray,palak pension 2017 active Medicati on ID: [id number] B rand Name: Flonase Send Method: E-Prescr ibed Sub s Allowed: subs OK Speci al Instruct ion: 2 spray each nostril BID Medi cationGe nericNam e: Flonase Medicati on ID: [id number] B rand Name: Flonase Send Method: E-Prescr [...] unit) tablet 2017 active Medicati on ID: [id number] D uration Value: 30 Brand Name: Calcium 600 + D(3) Sen d Method: E-Prescr ibed Sub s Allowed: subs OK Medic ationGen ericName : Calcium 600 + D(3) Not Available Not Available Not Available Flovent Diskus 50 mcg/actua tion powder for inhalatio n 2017 active Medicati on ID: [id number] P rescribe d By Name: Sanjay Funes M.D. Bra nd Name: Flonase Send Method: E-Prescr ibed Sub s Allowed: subs OK Speci al Instruct ion: 2 spray each nostril BID Medi cationGe nericNam e: Flonase Not Available Not Available Not Available Rhopressa 0.02 % eye drops 11/30 completed Medicati on ID: [id number] D uration Value: 45 Brand Name: Rhopress [...] SNOMED-CT Code Diagnosis ICD10 Code Diagnosis Note [id number] KAROLINE CRABTREE MD [facility] [address] [address] 12/01/2023 14:01:20 12/01/2023 15:20:24 Sensorineural hearing loss of bilateral ears 283575140 H90.3 Right Ear:Border line normal hearing through 4K Hz sloping to a moderate SNHL with excellent speech discrimina tion.Type As tympanogra m.Left Ear:Border line normal hearing through 4K Hz sloping to a moderate SNHL with excellent speech discrimina tion.Type As tympanogra m. Mild neuro cognitive disorder 606286014 G31.84 Health Concerns Section Related Observation LastModified by Organization Detai ls LastModified Time None Recorded Concern Status LastModified by Organization Details LastModified Time None Recorded Advance Directives Directive None Recorded Payers Encounter Date Sequence Insurance Name Policy Number Policy Kilpatrick Covered Member ID Kilpatrick Member ID Guarantor Name 12/01/2023 1 [facility] - DOS ON OR AFTER 2022 - ONE CARE (MEDICARE REPLACEMENT/ADV ANTAGE - HMO) Dilma Crump [id number] Dilma Crump Notes Date Note Type Note Provider Name and Address Organization Details Recorded Time 12/01/2023 text/html Mild cognitive impairment. Seen for HL at request of geriatric medicine. Patient does not really notice any difficulties. No tinnitus KAROLINE MIRANDA MD [address] [place] [address], [place], [address], [facility] - [facility] 12/01/2023 15:19:22 OBGyn Episode No OBEpisode recorded.
[2024-07-12 09:48] LABS: Basophils Percent Auto 0.8 % (0-2); Eosinophils Absolute Auto 0.2 X10*3/uL (0.0-0.4); Eosinophils Percent Auto 2.9 % (0-4); Hematocrit 38.5 % (37.0-47.0); Hemoglobin 12.7 g/dl (12.0-16.0); Imm Gran Abs Auto 0.02 X10*3/uL (0.00-0.03); Imm Gran Pct Auto 0.4 % (0.0-0.4); Lymphocytes Absolute Auto 1.5 X10*3/uL (1.2-4.9); Lymphocytes Percent Auto 28.4 % (20-40); Monocytes Absolute Auto 0.5 X10*3/uL (0.1-1.2); Monocytes Percent Auto 9.3 % (2-11); Neutrophils Percent Auto 58.2 % (45-73); Platelet Count 300 X10*3/uL (160-400); Red Blood Count 3.85 X10*6/uL (4.20-5.50); Red Cell Distribution Width 13.2 % (11.0-16.0); White Blood Count 5.2 X10*3/uL (4.8-10.8)
[2024-07-12 09:52] LABS: Estimated Average Glucose 120 mg/dL; Hemoglobin A1C 140.2424 umol/L; Hemoglobin A1c % 5.8 % (<6.0); Total Hemoglobin (HGBA1C) 3488.4929 umol/L
[2024-07-12 10:15] LABS: Alanine Aminotransferase 20 U/L (0-31); Albumin Level 3.8 g/dL (3.5-5.0); Alkaline Phosphatase 42 U/L (39-117); Anion Gap 8 (12-20); Aspartate Amino Transferase 27 U/L (5-31); Bilirubin Total 0.6 mg/dL (0.0-1.0); Blood Urea Nitrogen 23 mg/dL (9-16); Calcium 9.3 mg/dL (8.4-10.2); Carbon Dioxide 27 mmol/L (22-29); Chloride 107 mmol/L (96-108); Cholesterol 170 mg/dL (<200); Estimated Glomerular Filt Rate > 60; Glucose Random 114 mg/dL (60-115); HDL Cholesterol 48 mg/dL (>40); LDL Cholesterol Calculated 99 mg/dL (<100); Magnesium 1.9 mg/dL (1.6-2.6); Potassium 3.8 mmol/L (3.3-5.1); Sodium 138 mmol/L (135-145); Total Protein 6.5 g/dL (6.5-8.0); Triglycerides 115 mg/dL (<150)
[2024-07-12 10:35] LABS: Free T4 (Free Thyroxine) 1.15 ng/dL (0.71-1.85); Thyroid Stimulating Hormone 2.75 uIU/mL (0.32-4.0)
[2024-07-12 10:46] LABS: Folate 12.1 ng/mL (> or = 4.0); Vitamin B12 274 pg/mL (200-900)
== END 2024-07-12 08:46 | disposition home or self-care (01) ==
LOC: HO.LAB 08:45
PROVIDERS: PCP Internal Medicine; Visit Provider Internal Medicine
DX: E78.00 Pure hypercholesterolemia, unspecified (principal); Z13.1 Encounter for screening for diabetes mellitus
CPT/HCPCS: 36415; 80053; 80061; 82607; 82746; 83036; 83735; 84439; 84443; 85025

== ENCOUNTER 2024-07-24 09:04 | Outpatient (AMB) | payer OTHER, SELFPAY ==
--- NOTE | 2024-07-24 09:12 | MHC.PC.OV ---
Vital Signs 07/24/24 09:13 Height 4 ft 11 in Weight 109 lb 6 oz BMI 22.1 BP 110/60 Blood Pressure Location Lt brachial Position Sitting Pulse 70 Pulse Source Pulse Oximeter Temp 97.1 F Temp Source Temporal Artery Scan Pulse Oximetry (%) 98 Oxygen Delivery Method Room Air Intake Visit Reasons: physical Intake Note: Patient is here today for a physical. Product Management Manager Required: Yes Product Management Manager Language: Supervising Editor News Reel Name: Diana (Daughter) Information Interpreted: non-clinical & clinical (Pt decline hris developer service prefer for daughter to translate) Balloon Artist: Present Accompanied by: Daughter Allergies amlodipine Allergy (Unknown, Verified 07/24/24 09:13) swelling metoprolol Allergy (Unknown, Verified 07/24/24 09:13) Unknown pravastatin Allergy (Unknown, Verified 07/24/24 09:13) Unknown simvastatin Allergy (Unknown, Verified 07/24/24 09:13) Unknown atorvastatin [From Lipitor] Adverse Reaction (Intermediate, Verified 07/24/24 09:13) muscle aches Medication List - Last Reconciled 07/24/24 by Haylee Sanchez MD blood pressure monitor (Blood Pressure Kit) As directed blood pressure test kit-medium As directed compress.stocking,knee,reg,med As directed 20-30 mm mercury dorzolamide-timolol 22.3-6.8 mg/mL 1 drp ophthalmic (eye) BID losartan 25 mg PO DAILY melatonin 10 mg PO BEDTIME PRN multivitamin 1 tab PO DAILY prednisolone acetate 1% drps ophthalmic (eye) Tobacco use date assessed: 07/24/24 Fall risk assessment: No Falls in past year Last assessed Fall Risk: 07/24/24 Dental Screening Dental Screen Date: 06/12/24 [facility] Medical History (Updated 07/24/24 @ 09:42 by Haylee Sanchez MD) Cramps of right lower extremity Mild cognitive impairment Osteopenia Generalized anxiety disorder Pelvic pain Pelvic pain Urethral disorder, unspecified Vaginal mass Fibroids Finger avulsion Diverticulitis Osteoporosis Cognitive impairment Glaucoma Cardiomyopathy Hypercholesterolemia Complex renal cyst Restless leg syndrome Insomnia Hypertension Surgical History History of eye surgery Status post excision of lipoma Corneal transplant status History of cholecystectomy Family History Father Prostate cancer Mother No problems noted. Brother No problems noted. Sister Endometrial cancer Daughter No problems noted. Social History Housing: Apartment Alcohol intake: never Patient Tobacco Use Status: Never used Tobacco Tobacco use type: Cigarette e-Cigarette/Vaping Use: Never Used Second Hand Smoke Exposure: No service: No Current occupational status: retired Gender identity: Female Cognitive needs: Yes Hearing needs: No Vision needs: Yes Questionnaire PHQ-9 Over the last 2 weeks, how often have you been bothered by any of the following problems? 1. Little interest or pleasure in doing things: several days 2. Feeling down, depressed, or hopeless: several days 3. Trouble falling or staying asleep, or sleeping too much: nearly every day 4. Feeling tired or having little energy: nearly every day 5. Poor appetite or overeating: several days 6. Feeling bad about yourself - or that you are a failure or have let yourself or your family down: more than half the days 7. Trouble concentrating on things, such as reading the newspaper or watching television: nearly every day 8. Moving or speaking so slowly that other people could have noticed. Or the opposite - being so fidgety or restless that you have been moving around a lot more than usual: not at all 9. Thoughts that you would be better off or of hurting yourself in some way: not at all Total score: 14 Depression Screening Interpretation: Positive Depression Screening Done: Yes Source: Developed by Drs. Greg Cook, Jagruti Brandon, Heber Young and colleagues, with an educational daxa from [employer]. Thrive Questionnaire Date Thrive assessed: 06/12/24 I am a: Parent/Caregiver What is your living situation today?: I have a steady place to live Within the past 12 months, did the food you bought not last and you didn't have the money to get more?: I choose not to answer this question Within the past 12 months, did you worry whether your food would run out before you got money to buy more?: I choose not to answer this question Do you have trouble paying for medicines?: I choose not to answer this question Do you have trouble getting transportation to medical appointments?: I choose not to answer this question Do you have trouble paying your heating and electricity bill?: I choose not to answer this question Do you have trouble taking care of your child, family member or friend?: I choose not to answer this question Do you have trouble with day-to-day activities such as bathing, preparing meals, shopping, managing finances, etc.?: Yes Are you currently unemployed and looking for a job?: I choose not to answer this question Are you interested in more education?: I choose not to answer this question Please select the resources that you would like help with: Care for elder or disabled Currently or been in a relationship where the following occur: I choose not to answer THRIVE Score: 0 AUDIT C Alcohol Use Questionnaire (AUDIT-C) 1. How often do you have a drink containing alcohol?: Never Total Score: 0 RAYMOND-7 AMB Questionnaire RAYMOND-7 Date RAYMOND - 7 assessed: 06/12/24 Feeling nervous, anxious, or on edge: 3 = Nearly every day Not being able to stop or control worryin = Nearly every day Worrying too much about different things: 3 = Nearly every day Trouble relaxin = Nearly every day Being so restless that it is hard to sit still: 3 = Nearly every day Becoming easily annoyed or irritable: 3 = Nearly every day Feeling afraid as if something awful might happen: 1 = Several days Total RAYMOND-7 score (0-4 normal; 5-9 mild; 10-14 moderate; 15-21 severe): 19 Source: Developed by Drs. Greg Cook, Jagruti Brandon, Heber Young and colleagues, with an educational daxa from [employer]. Review of Systems Const Denies poor appetite and Denies weakness Eyes Denies no additional complaints ENT Reports Normal hearing present, Denies dizziness, Denies nasal congestion, Denies tinnitus and Denies sore throat Card Denies chest pain, Denies syncope, Denies rapid heart rate and Denies dyspnea Resp Denies cough and Denies dyspnea GI Denies change in stool character, Reports constipation, Denies diarrhea, Denies nausea and Denies vomiting Denies urinary frequency, Denies difficulty voiding and Denies dysuria Neuro Reports Normal hearing present, Denies confusion, Denies dizziness, Denies syncope and Denies weakness Psych Denies confusion Physical exam (Primary Care) Tobacco/Smoking Status: Tobacco use Status Tobacco use date assessed 06/12/24 06/12/24 11:35 Patient Tobacco Use Status Never used Tobacco 06/12/24 11:35 Tobacco use type Cigarette 06/12/24 11:35 e-Cigarette/Vaping Use Never Used 06/12/24 11:35 Depression Screening Interpretation: Positive Thrive Assessment: Date of Thrive Assessment Date Thrive assessed 06/12/24 06/12/24 11:35 Currently or been in a relationship where the following occur: I choose not to answer Const General: No confusion Orientation/consciousness: No confusion HENMT Head: Yes normocephalic Ears: external ears normal and TM's normal bilaterally Face and sinus: Yes normal facial exam Mouth: moist mucous membranes Throat: Yes tonsils normal Eyes Conjunctivae: conjunctivae normal Pupils: Equal, round and reactive pupils present and Pupil accommodation reflex normal Direct Ophthalmoscopy: normal light reflex Neck Neck: No lymphadenopathy Thyroid: Thyroid normal Chest Chest palpation & inspection: normal inspection of the chest Resp Effort & Inspection: normal respiratory effort and no audible wheezes Auscultation: clear to auscultation bilaterally, no crackles, no wheezes and lung sounds not diminished Cardio Rate: regular rate Rhythm: regular rhythm Peripheral pulses: radial pulses present and dorsalis pedis present GI Other: declined Palpation (GI): no masses Auscultation: normal bowel sounds and normoactive bowel sounds Rectal Exam - Female: deferred Skin General skin exam: no rashes or lesions noted Rashes: no rashes Neuro General: No confusion Cranial nerves: Yes Equal, round and reactive pupils present and Yes Normal hearing present Cognition (Neuro): normal cognition Gait exam (Neuro): Normal gait present Motor exam (neuro): 5/5 motor strength present throughout Deep tendon reflexes (DTR's): Right brachioradialis reflex intensity grade: 2+, Left brachioradialis reflex intensity grade: 2+, Right patellar reflex intensity grade: 2+ and Left patellar reflex intensity grade: 2+ Extrem General: No edema Coding Level of Care Code Est Pt Prev Care >65y(87111) Diagnoses Annual physical exam Z00.00 Cognitive impairment R41.89 Essential hypertension I10 Hypertension type: essential hypertension Hypercholesterolemia E78.00 Impaired fasting blood sugar R73.01 Generalized anxiety disorder F41.1 Osteoporosis M81.0 Right ankle pain M25.571 Vitamin B 12 deficiency E53.8 Right calf pain M79.661 Assessment & Plan Assessment & Plan (1) Annual physical exam: Code(s): Z00.00 - Encounter for general adult medical examination without abnormal findings Category: Medical Plan: Patient is advised to eat healthy, keep well hydrated, keep active and have adequate sleep. (2) Cognitive impairment: Comment: [facility] January 2024 Code(s): R41.89 - Other symptoms and signs involving cognitive functions and awareness Category: Medical Plan: Continue to follow-up with [facility] has been started on Abilify 2 mg once a day but patient declined (3) Hypertension: Comment: Patient has seen Cardiology November 2023 note losartan p.r.n. only Code(s): I10 - Essential (primary) hypertension Category: Medical Qualifiers: Hypertension type: essential hypertension Qualified Code(s): I10 - Essential (primary) hypertension Plan: Patient's blood pressure has been under control without any medication (4) Hypercholesterolemia: Code(s): E78.00 - Pure hypercholesterolemia, unspecified Category: Medical Plan: Avoid fried foods, chicken skin, eggs, butter margarine, pastries and meat. Be it pork or beef they have a lot of cholesterol LDL goal of less than 100 and triglyceride of less than 150 (5) Impaired fasting blood sugar: Code(s): R73.01 - Impaired fasting glucose Category: Medical Plan: Decrease the amount of carbohydrate intake, pasta, bread, rice and potatoes are all sugar and that is aside from all the sweet stuff, remember that fruits are good but they are Sweet also. (6) Generalized anxiety disorder: Code(s): F41.1 - Generalized anxiety disorder Category: Medical Plan: Continue with present medication (7) Osteoporosis: Comment: July 2023 Code(s): M81.0 - Age-related osteoporosis without current pathological fracture Category: Medical Plan: Discussed about calcium and vitamin-D, up-to-date with bone density (8) Right ankle pain: Code(s): M25.571 - Pain in right ankle and joints of right foot Category: Medical (9) Vitamin B 12 deficiency: Code(s): E53.8 - Deficiency of other specified B group vitamins Category: Medical (10) Right calf pain: Code(s): M79.661 - Pain in right lower leg Category: Medical Plan: no swelling on the leg and pulse are good . discussed that this is muscular, no need for US as there is no swelling and no mass Plan History of Present Illness The patient is a 78-year-old female presenting for an annual physical examination. She has a documented history of hypertension and hypercholesterolemia, with previous medication intolerance, specifically to certain cholesterol medications. Her current management includes losartan for blood pressure, and management of her anxiety and vascular cognitive impairment with Abilify. Significant cognitive concerns include mild delusions and moderate anxiety ascribed to small vessel ischemic disease, which is being monitored. Her latest laboratory results display macrocytosis yet no overt anemia, an elevated fasting blood glucose level not sufficient for a diabetes diagnosis, and slightly decreased vitamin B12 levels, which may necessitate supplementation. The patient engages in regular walking exercises and follows up regularly with her vehicle assembly inspector for her vision impairment. Despite challenges with vision and a history of hypertension, her major cardiovascular markers are within largely acceptable ranges at this time. Health Maintenance - Annual physical examination conducted - LDL cholesterol goal management of less than 100 mg/dL, current level 99 mg/dL - Monitoring of blood pressure with losartan 25 mg prescription - Vitamin D and calcium supplementation encouraged for bone health - Melatonin suggested for sleep disturbances Social History - Exercises regularly by walking - Legal blindness; sees ophthalmologists (Dr. Jensen and Dr. Lay in [place]) regularly - No smoking or alcohol use - Experiences difficulty with certain medications due to side effects, specifically cholesterol-lowering agents Review of Systems - Cardiovascular: Reports under control blood pressure, denies chest pain - Respiratory: Denies shortness of breath - Gastrointestinal: Denies nausea, vomiting, heartburn, swallowing difficulties - Musculoskeletal: Reports occasional leg pain with no associated falls - Neurological: Reports sleep disturbances, takes melatonin nightly - Genitourinary: Denies frequent nighttime urination - Psychiatric: Reports irritability, anxiety, and delusions Physical Exam General: Cooperative, healthy appearing, comfortable, no acute distress and well developed Orientation: Patient oriented x3 Limitations: No limitations Head: Normal to inspection Ears: Hearing grossly normal bilaterally Nose: Normal external nose present Face and sinus: Normal facial exam Eyes: Legally blind in both eyes Neck: Normal visual inspection and Yes full ROM Respiratory: Normal respiratory effort and able to speak in complete sentences. Clear to auscultation bilaterally Cardiovascular: Regular rate and rhythm. Normal S1 and S2 GI: Normal to inspection. Soft to palpation and nontender Skin: No rashes or lesions noted Neuro: Patient oriented x3 Extremities: Normal to inspection, but reports pain in the leg joint, likely arthritis, and muscle pain. No swelling noted. Circulation is good. Results - Labs: Macrocytosis without anemia; fasting blood sugar 114 mg/dL; hemoglobin A1c 5.8%; normal renal and liver function tests; mildly low vitamin B12 at 274 pg/mL - Lipid Profile: LDL cholesterol 99 mg/dL Plan I will continue losartan for managing hypertension and address her anxiety disorders by maintaining Abilify. Current cholesterol levels are satisfactory, circumventing statin therapy for now. Given the slight macrocytosis without anemia and mildly low vitamin , I have recommended initiating vitamin supplementation. No alterations are needed for her slightly elevated fasting glucose; instead, dietary modifications stressing lower carbohydrate intake are advised. Maintaining exercise through walking is encouraged to support cardiovascular and mental health. A follow-up appointment is arranged for six months to reassess these conditions. Patient was informed and verbally consented to the use of an ambient scribe for clinic note documentation during this visit. Discussion Notes During our discussion, I addressed her hypertension management plan, emphasizing the continuation of losartan 25 mg for three months. We discussed Abilify 2 mg broadly managing her anxiety and preventing irritability. Her LDL level at 99 mg/dL is adequate. I advised her dietary modifications to accommodate her fasting glucose of 114 mg/dL, specifically reducing carbohydrate intake. For her mildly low vitamin B12, I educated her on starting a supplement of 5137-9682 mcg daily. We confirmed her intention to continue melatonin for sleep issues. She will maintain walking as her primary exercise. Future follow-ups in six months will evaluate progress and adjust management as necessary. Patient Instructions - Take losartan 25 mg as prescribed for blood pressure. Patient has declined the Abilify that was prescribed by [facility] - Start vitamin B12 supplements as directed. - Monitor diet to reduce carbohydrates like bread and pasta. - Continue melatonin at 10 mg for sleep, as needed. - Engage in regular walking and maintain physical activity. - Return for reevaluation in six months or sooner if issues arise. Orders: Orders Vitamin B12 and Folate 6 Months E53.8 - Deficiency of other specified B group vitamins Lipid Panel 6 Months E53.8 - Deficiency of other specified B group vitamins, E78.00 - Pure hypercholesterolemia, unspecified XR ankle RT 2V Today M25.571 - Pain in right ankle and joints of right foot Complete Blood Count Auto Diff 6 Months E53.8 - Deficiency of other specified B group vitamins Comprehensive Met. Panel 6 Months E53.8 - Deficiency of other specified B group vitamins Hemoglobin A1c 6 Months E53.8 - Deficiency of other specified B group vitamins Medications: New losartan 25 mg PO DAILY 90 tabs 3RF cyanocobalamin (vitamin B-12) 1,000 mcg PO DAILY 30 caps 3RF E53.8 - Deficiency of other specified B group vitamins
[2024-07-24 09:13] VITALS: BP 110/60; PULSE 70; TEMP 36.2; O2SAT 98; BMI 22.1
--- OUTSIDE RECORDS SUMMARY | 2024-07-24 09:16 | XMS_ITS | Data Portability ---
Author Organization [place] [facility], Allergy Address [address] [place] [id number] Assessment Encounter Date Assessment Date Assessment LastModified [...] Organization Details Recorded Time Mass of neck 444273602 Active 2017 Localized swelling, mass and lump, neck; Note: Date Diagnosed: 02/03/2018 2:05 PM (R22.1) Not Available Counts include 234 beds at the [facility] 4 02:57:30 Neck swelling [id number] Active 2017 Localized swelling, mass and lump, neck; Note: Date Diagnosed: 02/03/2018 2:05 PM (R22.1) Not Available Counts include 234 beds at the [facility] 4 02:57:30 Chronic rhinitis 21029423 Active 2017 Chronic rhinitis; Note: Date Diagnosed: 02/03/2018 2:05 PM (J31.0) Not Available Counts include 234 beds at the [facility] 4 02:57:28 Sensorine ural hearing loss of bilateral ears 243576895 Active [address]OWN [address] [place] [address],[place] [address], [place], [address] , [facility] - [facility] 4 15:03:43 Mild neurocogn itive disorder [id number] Active 2023 KAROLINE CRABTREE MD [address] [facility],[place] [address], [facility] [place], [address] , [facility] - [facility] 4 15:19:06 Problem Notes None recorded. Procedures Surgical History Date Name Laterality Status Provider Name and Address Organization Details Recorded Time 4 Comp Audio with Tymps (43742 & 69974) completed GILA BROWN [address] [facility],[place] [address], [place], [address], [facility] - [facility] 12/01/2023 15:03:36 Eye Surgery completed [facility] 12/01/2023 14:33:03 Imaging Results Imaging Date Name Status LastModified by [facility] Details LastModified Time 04/07/2018 imaging/diagno [...] Name and Address Organization Details Recorded Time 59708 brimonidi ne tartrate medicatio n other Not available Not available 08/17/2023 94374 RxNorm React ion: unkno wn, unspe cifie d;; Not Available [facility] 00:48:43 Medications Name Sig Start Date Stop Date Status Note LastModified by Organization Details LastModified Time amoxicill in 500 mg capsule TAKE 1 CAPSULE BY MOUTH EVERY 6 HOURS UNTIL GONE 11/30 completed Not Available Not Available Not Available latanopro st 0.005 % eye drops 2017 active Medicati on ID: [id number] D uration Value: 50 Brand Name: latanopr [...] mg tablet 2017 active Medicati on ID: [id number] D uration Value: 90 Brand Name: alendron [...] mg tablet 11/30 completed Medicati on ID: [id number] D uration Value: 90 Brand Name: losartan [...] eye drops 2017 active Medicati on ID: [id number] D uration Value: 50 Brand Name: timolol maleate Send Method: E-Prescr ibed Sub s Allowed: subs OK Speci al Instruct ion: instill 1 drop into right eye twice a day Medi cationGe nericNam e: timolol maleate Not Available Not Available Not Available fluticaso ne propionat e 50 mcg/actua tion nasal spray,palak pension 2017 active Medicati on ID: [id number] B rand Name: Flonase Send Method: E-Prescr ibed Sub s Allowed: subs OK Speci al Instruct ion: 2 spray each nostril BID Medi cationGe nericNam e: Flonase Medicati on ID: [id number] B rand Name: Flonase Send Method: E-Prescr [...] unit) tablet 2017 active Medicati on ID: [id number] D uration Value: 30 Brand Name: Calcium 600 + D(3) Sen d Method: E-Prescr ibed Sub s Allowed: subs OK Medic ationGen ericName : Calcium 600 + D(3) Not Available Not Available Not Available Flovent Diskus 50 mcg/actua tion powder for inhalatio n 2017 active Medicati on ID: [id number] P rescribe d By Name: Sanjay Funes M.D. Bra nd Name: Flonase Send Method: E-Prescr ibed Sub s Allowed: subs OK Speci al Instruct ion: 2 spray each nostril BID Medi cationGe nericNam e: Flonase Not Available Not Available Not Available Rhopressa 0.02 % eye drops 11/30 completed Medicati on ID: [id number] D uration Value: 45 Brand Name: Rhopress [...] SNOMED-CT Code Diagnosis ICD10 Code Diagnosis Note [id number] KAROLINE CRABTREE MD [facility] [address] [address] 12/01/2023 14:01:20 12/01/2023 15:20:24 Sensorineural hearing loss of bilateral ears [id number] H90.3 Right Ear:Border line normal hearing through 4K Hz sloping to a moderate SNHL with excellent speech discrimina tion.Type As tympanogra m.Left Ear:Border line normal hearing through 4K Hz sloping to a moderate SNHL with excellent speech discrimina tion.Type As tympanogra m. Mild neuro cognitive disorder [id number] G31.84 Health Concerns Section Related Observation LastModified by Organization Detai ls LastModified Time None Recorded Concern Status LastModified by Organization Details LastModified Time None Recorded Advance Directives Directive None Recorded Payers Encounter Date Sequence Insurance Name Policy Number Policy Kilpatrick Covered Member ID Kilpatrick Member ID Guarantor Name 12/01/2023 1 [facility] - DOS ON OR AFTER 2022 - ONE CARE (MEDICARE REPLACEMENT/ADV ANTAGE - HMO) Dilma Crump [id number] Dilma Crump Notes Date Note Type Note Provider Name and Address Organization Details Recorded Time 12/01/2023 text/html Mild cognitive impairment. Seen for HL at request of geriatric medicine. Patient does not really notice any difficulties. No tinnitus KAROLINE MIRANDA MD [address] [place] [address], [place], [address], [facility] - [facility] 12/01/2023 15:19:22 OBGyn Episode No OBEpisode recorded.
== END 2024-07-24 09:44 | disposition home or self-care (01) ==
LOC: HO.HMCH 09:05
PROVIDERS: PCP Internal Medicine; Visit Provider Internal Medicine
DX: Z00.00 Encounter for general adult medical examination without abnormal findings (principal); R41.89 Other symptoms and signs involving cognitive functions and awareness; I10 Essential (primary) hypertension; E78.00 Pure hypercholesterolemia, unspecified; R73.01 Impaired fasting glucose; F41.1 Generalized anxiety disorder; M81.0 Age-related osteoporosis without current pathological fracture; M25.571 Pain in right ankle and joints of right foot; E53.8 Deficiency of other specified B group vitamins; M79.661 Pain in right lower leg

== ENCOUNTER 2024-07-24 09:04 | Outpatient (REF) | payer OTHER, SELFPAY ==
--- NOTE | ~2024-07-24 | XR_ITS ---
CLINICAL HISTORY: M25.571 - Pain in right ankle and joints of right foot Right ankle three views Comparison: None Findings: No acute fracture or dislocation identified. No acute focal bony abnormality. No radiopaque foreign body noted. Impression: No acute bony abnormality This document has been electronically signed by: Beau Rodriguez MD on 07/25/2024 19:31:16
== END 2024-07-24 09:05 | disposition home or self-care (01) ==
LOC: HO.XRAY 09:04
PROVIDERS: PCP Internal Medicine; Visit Provider Internal Medicine
DX: Z00.00 Encounter for general adult medical examination without abnormal findings (principal); R41.89 Other symptoms and signs involving cognitive functions and awareness; I10 Essential (primary) hypertension; E78.00 Pure hypercholesterolemia, unspecified; R73.01 Impaired fasting glucose; F41.1 Generalized anxiety disorder; M81.0 Age-related osteoporosis without current pathological fracture; M25.571 Pain in right ankle and joints of right foot; E53.8 Deficiency of other specified B group vitamins; M79.661 Pain in right lower leg
CPT/HCPCS: 73600; 99397

== ENCOUNTER → 2024-07-24 16:19 | Outpatient (BNV) | payer OTHER, SELFPAY | PROVIDERS: PCP Internal Medicine; Visit Provider Radiology Diagnostic Radiology | DX: M25.571 Pain in right ankle and joints of right foot (principal) | CPT/HCPCS: 73600 ==

== ENCOUNTER 2025-01-23 09:34 | Outpatient (AMB) | payer OTHER, SELFPAY ==
[2025-01-23 09:41] VITALS: BP 132/70; PULSE 79; TEMP 36; O2SAT 97; BMI 22.3
--- NOTE | 2025-01-23 09:41 | MHC.PC.OV ---
Vital Signs 01/23/25 09:41 Height 4 ft 11 in Weight 110 lb 6 oz BMI 22.3 BP 132/70 Blood Pressure Location Lt brachial Position Sitting Pulse 79 Pulse Source Pulse Oximeter Temp 96.8 F Temp Source Temporal Artery Scan Pulse Oximetry (%) 97 Oxygen Delivery Method Room Air Intake Visit Reasons: Vascular MCI, HTN Allergies amlodipine Allergy (Unknown, Verified 01/23/25 09:47) swelling metoprolol Allergy (Unknown, Verified 01/23/25 09:47) Unknown pravastatin Allergy (Unknown, Verified 01/23/25 09:47) Unknown simvastatin Allergy (Unknown, Verified 01/23/25 09:47) Unknown atorvastatin (From Lipitor) Adverse Reaction (Intermediate, Verified 01/23/25 09:47) muscle aches Medication List - Last Reconciled 01/23/25 by Haylee Sanchez MD blood pressure monitor (Blood Pressure Kit) As directed blood pressure test kit-medium As directed compress.stocking,knee,reg,med As directed 20-30 mm mercury cyanocobalamin (vitamin B-12) 1,000 mcg PO DAILY dorzolamide-timolol 22.3-6.8 mg/mL 1 drp ophthalmic (eye) BID melatonin 10 mg PO BEDTIME PRN prednisolone acetate 1% drps ophthalmic (eye) Tobacco use date assessed: 01/23/25 Fall risk assessment: No Falls in past year Last assessed Fall Risk: 01/23/25 Dental Screening Dental Screen Date: 01/23/25 Did you have a dental visit in the last 12 months?: Yes Did you have a dental problem in the last 6 months where you did not have access to dental care?: No Was dental information given to patient?: Patient has dentist [facility] Medical History Cramps of right lower extremity Mild cognitive impairment Osteopenia Generalized anxiety disorder Pelvic pain Pelvic pain Urethral disorder, unspecified Vaginal mass Fibroids Finger avulsion Diverticulitis Osteoporosis Cognitive impairment Glaucoma Cardiomyopathy Hypercholesterolemia Complex renal cyst Restless leg syndrome Insomnia Hypertension Surgical History History of eye surgery Status post excision of lipoma Corneal transplant status History of cholecystectomy Family History Father Prostate cancer Mother No problems noted. Brother No problems noted. Sister Endometrial cancer Daughter No problems noted. Social History Housing: Apartment Alcohol intake: never Patient Tobacco Use Status: Never used Tobacco Tobacco use type: Cigarette e-Cigarette/Vaping Use: Never Used Second Hand Smoke Exposure: No service: No Current occupational status: retired Gender identity: Female Cognitive needs: Yes Hearing needs: No Vision needs: Yes Questionnaire PHQ-9 Over the last 2 weeks, how often have you been bothered by any of the following problems? 1. Little interest or pleasure in doing things: several days 2. Feeling down, depressed, or hopeless: several days 3. Trouble falling or staying asleep, or sleeping too much: nearly every day 4. Feeling tired or having little energy: nearly every day 5. Poor appetite or overeating: several days 6. Feeling bad about yourself - or that you are a failure or have let yourself or your family down: more than half the days 7. Trouble concentrating on things, such as reading the newspaper or watching television: nearly every day 8. Moving or speaking so slowly that other people could have noticed. Or the opposite - being so fidgety or restless that you have been moving around a lot more than usual: not at all 9. Thoughts that you would be better off or of hurting yourself in some way: not at all Total score: 14 Depression Screening Interpretation: Positive Depression Screening Done: Yes Source: Developed by Drs. Greg Cook, Jagruti Brandon, Heber Young and colleagues, with an educational daxa from [employer]. Thrive Questionnaire Date Thrive assessed: 07/24/24 I am a: Parent/Caregiver What is your living situation today?: I have a steady place to live Within the past 12 months, did the food you bought not last and you didn't have the money to get more?: I choose not to answer this question Within the past 12 months, did you worry whether your food would run out before you got money to buy more?: I choose not to answer this question Do you have trouble paying for medicines?: I choose not to answer this question Do you have trouble getting transportation to medical appointments?: I choose not to answer this question Do you have trouble paying your heating and electricity bill?: I choose not to answer this question Do you have trouble taking care of your child, family member or friend?: I choose not to answer this question Do you have trouble with day-to-day activities such as bathing, preparing meals, shopping, managing finances, etc.?: Yes Are you currently unemployed and looking for a job?: I choose not to answer this question Are you interested in more education?: I choose not to answer this question Please select the resources that you would like help with: Care for elder or disabled Currently or been in a relationship where the following occur: I choose not to answer THRIVE Score: 0 AUDIT C Alcohol Use Questionnaire (AUDIT-C) 1. How often do you have a drink containing alcohol?: Never Total Score: 0 RAYMOND-7 AMB Questionnaire RAYMOND-7 Date RAYMOND - 7 assessed: 06/12/24 Feeling nervous, anxious, or on edge: 3 = Nearly every day Not being able to stop or control worryin = Nearly every day Worrying too much about different things: 3 = Nearly every day Trouble relaxin = Nearly every day Being so restless that it is hard to sit still: 3 = Nearly every day Becoming easily annoyed or irritable: 3 = Nearly every day Feeling afraid as if something awful might happen: 1 = Several days Total RAYMOND-7 score (0-4 normal; 5-9 mild; 10-14 moderate; 15-21 severe): 19 Source: Developed by Drs. Greg Cook, Jagruti Brandon, Heber Young and colleagues, with an educational daxa from [employer]. Physical exam (Primary Care) Vital Signs: Last Vital Signs Temp 96.8 F 01/23/25 09:41 Pulse 79 01/23/25 09:41 BP 132/70 01/23/25 09:41 Pulse Ox 97 01/23/25 09:41 Oxygen Delivery Method Room Air 01/23/25 09:41 BMI result Body Mass Index 22.3 Tobacco/Smoking Status: Tobacco use Status Tobacco use date assessed 01/23/25 01/23/25 09:48 Patient Tobacco Use Status Never used Tobacco 01/23/25 09:48 Tobacco use type Cigarette 01/23/25 09:48 e-Cigarette/Vaping Use Never Used 01/23/25 09:48 PHQ-9: PHQ-9 Score PHQ-9: Total score 14 01/23/25 09:50 Depression Screening Interpretation: Positive Thrive Assessment: Date of Thrive Assessment Date Thrive assessed 07/24/24 01/23/25 09:48 Currently or been in a relationship where the following occur: I choose not to answer Const General: alert; No acute distress Eyes Conjunctivae: conjunctivae normal Resp Auscultation: clear to auscultation bilaterally Cardio Rate: regular rate Rhythm: regular rhythm GI Inspection: Yes normal to inspection Extrem General: Yes normal to inspection and No edema Coding Level of Care Code Est Pt Level 4 (22090) Complex EM visit Add On G2211 Diagnoses Essential hypertension I10 Hypertension type: essential hypertension Hypercholesterolemia E78.00 Impaired fasting blood sugar R73.01 Cognitive impairment R41.89 Sensorineural hearing loss, bilateral H90.3 Vitamin B 12 deficiency E53.8 Assessment & Plan Assessment & Plan (1) Hypertension: Comment: Patient has seen Cardiology November 2023 note losartan p.r.n. only Code(s): I10 - Essential (primary) hypertension Category: Medical Qualifiers: Hypertension type: essential hypertension Qualified Code(s): I10 - Essential (primary) hypertension Plan: Continue with blood pressure medication. Decrease salt intake and exercise patient on losartan 25 mg once a day (2) Hypercholesterolemia: Code(s): E78.00 - Pure hypercholesterolemia, unspecified Category: Medical Plan: Avoid fried foods, chicken skin, eggs, butter margarine, pastries and meat. Be it pork or beef they have a lot of cholesterol LDL goal of less than 130 and triglyceride of less than 150. Patient not on any cholesterol medication. Last blood work was in July 2024 (3) Impaired fasting blood sugar: Code(s): R73.01 - Impaired fasting glucose Category: Medical Plan: Decrease the amount of carbohydrate intake, pasta, bread, rice and potatoes are all sugar and that is aside from all the sweet stuff, remember that fruits are good but they are Sweet also. (4) Cognitive impairment: Comment: Vascular [facility] clinic January 2024 Code(s): R41.89 - Other symptoms and signs involving cognitive functions and awareness Category: Medical Plan: Supportive management (5) Sensorineural hearing loss, bilateral: Code(s): H90.3 - Sensorineural hearing loss, bilateral Category: Medical Plan: Received note January 12 sensorineural hearing loss but declined amplification. (6) Vitamin B 12 deficiency: Code(s): E53.8 - Deficiency of other specified B group vitamins Category: Medical Plan: Continue taking the vitamin B12 Plan History of Present Illness The patient is a 79-year-old female presenting with a follow-up on chronic conditions and preventative care. The patient has a history of hypertension, managed with losartan, though she reports not taking it due to concerns about low blood pressure readings. Her blood pressure was noted to be 110/99 mmHg, and she has been advised to monitor her blood pressure regularly and document the readings. The patient also has hypercholesterolemia, with recent lab results showing an LDL cholesterol level of 99 mg/dL, which is considered good. She is advised to continue monitoring her cholesterol levels. The patient has impaired glucose tolerance, with a hemoglobin A1c of 5.8% and a fasting blood sugar of 114 mg/dL. She has been advised to be cautious with sugar intake and to undergo repeat blood work to monitor her glucose levels. The patient has a history of osteoporosis, with up-to-date bone density assessments. She also has sensorineural hearing loss, for which she has declined amplification despite recent ENT evaluation. The patient exhibits macrocytosis without anemia and mild vitamin B12 deficiency, for which she has been advised to take vitamin B12 supplements. Preventative care measures include vaccinations for shingles, tetanus, and pneumonia, with a recommendation for a flu shot, which the patient has declined. Health Maintenance - Vaccinations: Shingles, tetanus, and pneumonia shots administered; flu shot recommended but declined - Blood pressure monitoring: Advised to regularly check and document blood pressure readings - Blood glucose monitoring: Advised to monitor sugar intake and undergo repeat blood work - Vitamin B12 supplementation: Recommended due to mild deficiency Social History Review of Systems Physical Exam - Respiratory: Lungs clear to auscultation bilaterally Results - Labs: Macrocytosis without anemia, normal electrolytes, renal function normal, hemoglobin A1c 5.8%, fasting blood sugar 114 mg/dL, LDL cholesterol 99 mg/dL, mild vitamin B12 deficiency Plan Patient was informed and verbally consented to the use of an ambient scribe for clinic note documentation during this visit. 1. Hypertension The patient has a history of hypertension, previously managed with losartan, which she has not been taking due to concerns about low blood pressure. She has been advised to monitor her blood pressure regularly and document the readings for further evaluation. 2. Hypercholesterolemia The patient's LDL cholesterol level is 99 mg/dL, which is within the target range. She is advised to continue monitoring her cholesterol levels. 3. Impaired Glucose Tolerance The patient has impaired glucose tolerance, with a hemoglobin A1c of 5.8% and a fasting blood sugar of 114 mg/dL. She has been advised to be cautious with sugar intake and to undergo repeat blood work to monitor her glucose levels. 4. Osteoporosis The patient has a history of osteoporosis with up-to-date bone density assessments. 5. Sensorineural Hearing Loss The patient has sensorineural hearing loss and has declined amplification despite recent ENT evaluation. 6. Macrocytosis Without Anemia The patient exhibits macrocytosis without anemia and mild vitamin B12 deficiency. She has been advised to take vitamin B12 supplements. 7. Preventative Care Preventative care measures include vaccinations for shingles, tetanus, and pneumonia, with a recommendation for a flu shot, which the patient has declined. Discussion Notes During the visit, we discussed the importance of monitoring blood pressure and glucose levels regularly. I advised the patient to document her blood pressure readings and to be cautious with sugar intake. We also reviewed her recent lab results, which showed macrocytosis without anemia and mild vitamin B12 deficiency, and I recommended vitamin B12 supplementation. Preventative care measures were discussed, including vaccinations for shingles, tetanus, and pneumonia, with a recommendation for a flu shot, which the patient declined. Patient Instructions - Monitor your blood pressure regularly and write down the readings. - Be cautious with sugar intake and follow up with repeat blood work as requested. - Take vitamin B12 supplements as advised. - Consider getting a flu shot for additional protection. Medications: Refilled cyanocobalamin (vitamin B-12) 1,000 mcg PO DAILY 30 caps 3RF E53.8 - Deficiency of other specified B group vitamins blood pressure monitor (Blood Pressure Kit) As directed 1 ea 0RF I10 - Essential (primary) hypertension
--- OUTSIDE RECORDS SUMMARY | 2025-01-23 10:47 | XMS_ITS | Data Portability ---
Author Organization [facility] - [facility], Allergy Address [address] [place] [address] Care Team Providers Care Separator Inserter Name Role Phone DAO ALEGRE Primary Care Provider [phone] Assessment Encounter Date Assessment Date Assessment LastModified [...] 1 year vel Not available 12/01/2023 15:18:03 01/12/2025 01/12/2025 79 year old Swedish speaking female presents for her one-year reevaluation of hearing loss. Updated audiometric testing today demonstrates essentially stable hearing bilaterally. Otoscopic exam is unremarkable. At the previous visit, patient was considered a borderline candidate for amplification, however she is still not interested in obtaining them at this time. Follow up as needed for any new or worsening concerns. All questions were answered. [email or web address] Not available 01/12/2025 12:35:13 Plan of Treatment Reminders Order Date Submit Date Provider Last Modified By Organization Details Last Modified Time Details Appointments None record ed. Lab None record ed. Referral None record ed. Procedures None record ed. Surgeries None record ed. Imaging None record ed. Medication Orders None record ed. Patient TargetsNo targets recorded. Patient InstructionsNo instructions recorded. Reason for Referral None Reported. Results Created Date Observation Date Name Description Value Unit Range Abnormal Flag Note LastModifiedBy Organization Detail LastModifiedTime 11/24/1904/07/2018 imagi ng/di agnos tic resul t No observ ation record ed. [email or web address] Not Available 18:10:22 11/24/19 24 05/31/2018 nevillei rajinder/cesar lawrence tic resul t No observ ation record ed. [email or web address] Not Available 18:10:33 12/02/19 24 audio gram No observ ation record ed. [email or web address] Not Available 2023 09:15:09 01/13/20 25 audio gram No observ ation record ed. BARCODE Not Available 2024 18:33:51 Result Notes None recorded. Problems Name Problem SNOMED Code Status Onset Date Resolution Date Notes Provider Name and Address Organization Details Recorded Time Mass of neck 671120006 Active 2017 Localized swelling, mass and lump, neck; Note: Date Diagnosed: 02/03/2018 2:05 PM (R22.1) Not Available [facility] 4 02:57:30 Neck swelling 354562372 Active 2017 Localized swelling, mass and lump, neck; Note: Date Diagnosed: 02/03/2018 2:05 PM (R22.1) Not Available [facility] 4 02:57:30 Chronic rhinitis 10583392 Active 2017 Chronic rhinitis; Note: Date Diagnosed: 02/03/2018 2:05 PM (J31.0) Not Available [facility] 4 02:57:28 Sensorine ural hearing loss of bilateral ears 777682063 Active 2023 DANA DOYLE, GILA [address] [address], [address] , [facility] - [facility] 4 15:03:43 Mild neurocogn itive disorder 296938295 Active 2023 KAROLINE CRABTREE MD [address] [address], [address] , [facility] - [facility] 4 15:19:06 Sensorine ural hearing loss of bilateral ears 641467096 Active 2024 DWIGHT FLORENCE, GILA [address] [address], [address] , [facility] - [facility] 5 10:17:45 Problem Notes None recorded. Procedures Surgical History Date Name Laterality Status Provider Name and Address Organization Details Recorded Time 5 Air & Speech Audio with Tymps - 05493, 03851 & 71740 completed DWIGHT FLORENCE, [address] [address], [place], [address], [facility] - [facility] 01/12/2025 10:17:39 4 Comp Audio with Tymps - 78282 & 17750 completed DANA DOYLE, [facility] [address] [facility],[address] [address], [place], [address], [facility] 12/01/2023 15:03:36 Eye Surgery completed Ra Scanlon [facility] 12/01/2023 14:33:03 Imaging Results None recorded. Procedure Notes None recorded. Medical Equipment None Reported. Allergies Allergen ID Allergen Name Allergen Category Reaction Reaction Severity Criticality Documentation Date Start Date Code Code System Note Provider Name and Address Organization Details Recorded Time 97879 brimonidi ne tartrate medicatio n other Not available Not available 08/17/2023 90531 RxNorm React ion: unkno wn, unspe william d;; Not Available [facility] 4 00:48:43 Medications Name Sig Start Date Stop Date Status Note LastModified by Organization Details LastModified Time amoxicill in 500 mg capsule TAKE 1 CAPSULE BY MOUTH EVERY 6 HOURS UNTIL GONE 11/30 completed Not Available Not Available Not Available latanopro st 0.005 % eye drops 2017 active Medicati on ID: [id number] D uration Value: 50 Brand Name: latanopr ost Send Method: E-Prescr ibed Sub s Allowed: subs OK Speci al Instruct ion: place 1 drop into left eye NIGHTLY Medicati onGeneri cName: latanopr ost Not Available Not Available Not Available paroxetin e 10 mg tablet TAKE 1 TABLET BY MOUTH AT BEDTIME 01/12 completed Not Available Not Available Not Available alendrona te 5 mg tablet 01/12 completed Medicati on ID: [id number] D uration Value: 90 Brand Name: alendron [...] completed Not Available Not Available Not Available benzonata te 200 mg capsule TAKE 1 CAPSULE BY MOUTH THREE TIMES DAILY NEEDED FOR COUGH 01/12 completed Not Available Not Available Not Available prednison e 20 mg tablet TAKE 2 TABLETS BY MOUTH WITH BREAKFAS T FOR 4 DAYS. 01/12 completed Not Available Not Available Not Available losartan 100 mg-hydroc hlorothia zide 25 mg tablet 11/30 completed Medicati on ID: [id number] D uration Value: 90 Brand Name: losartan -hydroch lorothia zide Sen d Method: E-Prescr ibed Sub s Allowed: subs OK Medic ationGen ericName : losartan -hydroch lorothia zide Not Available Not Available Not Available prednisol one acetate 1 % eye drops,palak pension INSTILL 1 DROP IN LEFT EYE EVERY DAY active Not Available Not Available No t Available losartan 25 mg tablet TAKE 1 TABLET BY MOUTH DAILY active Not Available Not Available No t Available dorzolami de 22.3 mg-timolo l 6.8 mg/mL eye drops PLACE 1 DROP INTO EACH EYE EVERY MORNING active Not Available Not Available No t Available albuterol sulfate HFA 90 mcg/actua tion aerosol inhaler INHALE 1 TO 2 PUFFS BY MOUTH EVERY 6 HOURS NEEDED FOR BRONCHIL ITIS. active Not Available Not Available No t Available timolol maleate 0.5 % eye drops 2017 active Medicati on ID: [id number] D uration Value: 50 Brand Name: timolol maleate Send Method: E-Prescr ibed Sub s Allowed: subs OK Speci al Instruct ion: instill 1 drop into right eye twice a day Medi cationGe nericNam e: timolol maleate Not Available Not Available Not Available fluticaso ne propionat e 50 mcg/actua tion nasal spray,palak pension 01/12 completed Medicati on ID: [id number] B rand Name: Flonase Send Method: E-Prescr ibed Sub s Allowed: subs OK Speci al Instruct ion: 2 spray each nostril BID Medi cationGe nericNam e: Flonase Medicati on ID: [id number] B rand Name: Flonase Send Method: E-Prescr ibed Sub s Allowed: subs OK Speci al Instruct ion: 2 spray each nostril BID Medi cationGe nericNam e: Flonase Not Available Not Available Not Available moxifloxa coby 0.5 % eye drops INSTILL 1 DROP IN RIGHT EYE FOUR TIMES DAILY FOR 4 DAYS 01/12 completed Not Available Not Available Not Available tizanidin e 2 mg capsule TAKE 1 CAPSULE BY MOUTH THREE TIMES DAILY FOR 7 DAYS NEEDED FOR MUSCLE SPASM 01/12 completed Not Available Not Available Not Available Calcium 600 + D(3) 600 mg-5 mcg (200 unit) tablet 2017 active Medicati on ID: [id number] D uration Value: 30 Brand Name: Calcium 600 + D(3) Sen d Method: E-Prescr ibed Sub s Allowed: subs OK Medic ationGen ericName : Calcium 600 + D(3) Not Available Not Available Not Available aripipraz ole 2 mg tablet TAKE 1 TABLET BY MOUTH DAILY AT SUPPER active Not Available Not Available No t Available Flovent Diskus 50 mcg/actua tion powder for inhalatio n 2017 active Medicati on ID: [id number] P rescribe d By Name: Sandra Odell nd Name: Flonase Send Method: E-Prescr ibed Sub s Allowed: subs OK Speci al Instruct ion: 2 spray each nostril BID Medi cationGe nericNam e: Flonase Not Available Not Available Not Available Rhopressa 0.02 % eye drops 11/30 completed Medicati on ID: [id number] D uration Value: 45 Brand Name: Rhopress a Send Method: E-Prescr ibed Sub s Allowed: subs OK Medic ationGen ericName : Rhopress a Not Available Not Available Not Available Vitals Date Recorded Body height Body mass index (BMI) Body weight Provider Name and Address Organization Details Last Updated DateTime 01/12/2025 152.4 cm 21.5 kg/m2 47356.16 g DEON GUZMAN [place] - [facility] 01/12/2025 10:44:00 Social History None recorded. Functional Status None recorded. Mental Status None recorded. Family History Nothing Reported. Medical History No medical history recorded. Gynecological HistoryNo gynecological history recorded. Obstetrics History GPAL:G 0 P 0 0 0 0 Past Encounters Encounter ID Performer Location Encounter Start Date Encounter Closed Date Diagnosis/Indication Diagnosis SNOMED-CT Code Diagnosis ICD10 Code Diagnosis IMO Codes Diagnosis Note [id number] KAROLINE CRABTREE MD [facility] [address] [phone] 12/01/2023 14:01:20 12/01/2023 15:20:24 Sensorineural hearing loss of bilateral ears 209385819 H90.3 Right Ear:Border line normal hearing through 4K Hz sloping to a moderate SNHL with excellent speech discrimina tion.Type As tympanogra m.Left Ear:Border line normal hearing through 4K Hz sloping to a moderate SNHL with excellent speech discrimina tion.Type As tympanogra m. Mild neuro cognitive disorder 025761813 G31.84 [id number] MU WILLOUGHBY [facility] [address] [address] 01/12/2025 09:30:37 01/12/2025 11:46:51 Sensorineural hearing loss of bilateral ears 992677352 H90.3 [id number] Audiologic al evaluation results: Right ear:Normal sloping to moderately severe sensorineu ral hearing loss with excellent word recognitio n.Left ear:Normal sloping to moderately severe sensorineu ral hearing loss with excellent word recognitio n. Tympanomet ry:Right Ear:Type ALeft Ear:Type As Health Concerns Section Related Observation LastModified by Organization Detai ls LastModified Time None Recorded Concern Status LastModified by Organization Details LastModified Time None Recorded Advance Directives Directive None Recorded Payers Insurance Date Sequence Insurance Name Policy Number Policy Kilpatrick Covered Member ID Kilpatrick Member ID Guarantor Name 01/12/2025 1 [facility] - DOS ON OR AFTER 2022 - ONE CARE (MEDICARE REPLACEMENT/ADV ANTAGE - HMO) Dilma Crump [id number] Dilma Crump Notes Date Note Type Note Provider Name and Address Organization Details Recorded Time 12/01/2023 text/html Mild cognitive impairment. Seen for HL at request of geriatric medicine. Patient does not really notice any difficulties. No tinnitus KAROLINE MIRANDA MD [address] [place] [address], [phone], [facility] 12/01/2023 15:19:22 01/12/2025 text/html ROS as noted in the HPI 79 year old Swedish speaking female presents for her one-year reevaluation of hearing loss. Patient has no acute concerns today. Denies otalgia, otorrhea, tinnitus, dizziness, and changes in hearing. KAROLINE MIRANDA MD [address] [place] [address],[address] [address], [place], [address], [facility] 01/12/2025 16:06:35 OBGyn Episode No OBEpisode recorded.
--- OUTSIDE RECORDS SUMMARY | 2025-01-23 10:47 | XMS_ITS | Encounter Summary ---
Author Organization [employer] [facility] Address [address] [facility] [address] [place] [address] Phone Care Team Providers Care Director Of Rehabilitation And Wellness Name Role Phone Haylee Sanchez MD Primary Care Provider [phone] Reason for Visit * Reason Comments Medication Refill Encounter Details Date Type Department Care Team (Late Contact Info) Description 09/28/2019 Refill [facility] [address] [place] [address] Robin Santiago MD [address] [place] [address] [place] [address] [email or web address] Medication Refill Social History Tobacco Use Types Packs/Day Years Used Date Smoking Tobacco: Never Smokeless Tobacco: Never Alcohol Use Standard Drinks/Week Comments No 0 (1 standard drink = 0.6 oz pur e alcohol) Comments Unknown Sex and Gender Information Value Date Recorded Sex Assigned at Not on file Legal Sex Female 1:57 PM EST Gender Identity Not on file Sexual Orientation Not on file documented as of this encounter Plan of Treatment Upcoming Encounters Date Type Department Care Team (Late Contact Info) Description 04/02/2025 1:20 PM EST Procedure visit [facility] Op[facility] Laser 12th Floor 243 [facility] [address] [place] [address] Jonathan Lay MD [address] [place] [id number] [email or web address] 06/01/2025 11:00 AM EST Procedure visit [address] [address] Robin العراقي MD, PhD, MPH [address] [place] [phone] [email or web address] 06/01/2025 11:10 AM EST Office Visit [facility] Glaucoma [address] [address] Robin العراقي MD, PhD, MPH [address] [place] [phone] Cathy@[email or web address] documented as of this encounter Visit Diagnoses Not on filedocumented in this encounter Care Teams Director Of Rehabilitation And Wellness Relationship Specialty Start Date End Date Haylee Sanchez MD [address] [place] [address] [place] [phone] PCP - General Internal Medicine 07/14/16 documented as of this encounter Additional Source Comments The information contained in this document represents components of the legal health record. It is not the complete legal health record.[facility]
--- OUTSIDE RECORDS SUMMARY | 2025-01-23 10:48 | XMS_ITS | Encounter Summary ---
Author Organization [employer] [facility] Address [address] [facility] [address] [place] [address] Phone Care Team Providers Care Appliance Service Representative Name Role Phone Haylee Sanchez MD Primary Care Provider [phone] Encounter Details Date Type Department Care Team (Late Contact Info) Description 10/09/2020 Telephone ADMINISTRATIVE - Virtual Department [address] [place] [address] Robin Santiago MD [address] [facility] [address] [address] [email or web address] Social History Tobacco Use Types Packs/Day Years Used Date Smoking Tobacco: Never Smokeless Tobacco: Never Alcohol Use Standard Drinks/Week Comments No 0 (1 standard drink = 0.6 oz pur e alcohol) Comments No Sex and Gender Information Value Date Recorded Sex Assigned at Not on file Legal Sex Female 1:57 PM EST Gender Identity Not on file Sexual Orientation Not on file documented as of this encounter Plan of Treatment Upcoming Encounters Date Type Department Care Team (Late Contact Info) Description 04/02/2025 1:20 PM EST Procedure visit [facility] 12th Floor 243 [facility] [address] [place] [address] Jonathan Lay MD [address] [place] [id number] [email or web address] 06/01/2025 11:00 AM EST Procedure visit [address] [address] Robin العراقي MD, PhD, MPH [address] [place] [phone] [email or web address] 06/01/2025 11:10 AM EST Office Visit [address] [address] Robin العراقي MD, PhD, MPH [address] [place] [phone] Cathy@[email or web address] documented as of this encounter Visit Diagnoses Not on filedocumented in this encounter Care Teams Appliance Service Representative Relationship Specialty Start Date End Date Haylee Sanchez MD [address] [facility] [address] [place] [phone] PCP - General Internal Medicine 07/14/16 documented as of this encounter Additional Source Comments The information contained in this document represents components of the legal health record. It is not the complete legal health record.[facility]
--- OUTSIDE RECORDS SUMMARY | 2025-01-23 10:48 | XMS_ITS | Encounter Summary ---
Author Organization [employer] [facility] Address [address] [facility] [address] [place] [address] Phone Care Team Providers Care Occupational Hygienist Name Role Phone Haylee Sanchez MD Primary Care Provider [phone] Encounter Details Date Type Department Care Team (Late Contact Info) Description 09/30/2020 Procedure Pass [facility] 6TH FL PERIOP DEPT [address] [place] [phone] Social History Tobacco Use Types Packs/Day Years [...] visit [facility] Laser 12th Floor 243 [facility] [address]th [place] [address] Jonathan Lay MD [address] [place] [address] [email or web address] 06/01/2025 11:00 AM EST Procedure visit [address] [address] Robin العراقي MD, PhD, MPH [address] [place] [phone] [email or web address] 06/01/2025 11:10 AM EST Office Visit [facility] Glaucoma [address] [address] Robin العراقي MD, PhD, MPH [address] [place] [phone] Cathy@[email or web address] documented as of this encounter Visit Diagnoses Not on filedocumented in this encounter Care Teams Occupational Hygienist Relationship Specialty Start Date End Date Haylee Sanchez MD [address] [place] [phone] PCP - General Internal Medicine 07/14/16 documented as of this encounter Additional Source Comments The information contained in this document represents components of the legal health record. It is not the complete legal health record.[facility]
--- OUTSIDE RECORDS SUMMARY | 2025-01-23 10:48 | XMS_ITS | Encounter Summary ---
Author Organization [employer] [facility] Address [address] [facility] [address] [place] [address] Phone Care Team Providers Care Learning Support Services Director Name Role Phone Haylee Sanchez MD Primary Care Provider [phone] Encounter Details Date Type Department Care Team (Late Contact Info) Description 10/17/2020 Prep for Surgery [facility] [address] [address] Elmer Wilson MD [email or web address] Social History Tobacco Use Types Packs/Day Years [...] Description 04/02/2025 1:20 PM EST Procedure visit [facility] 12th Floor [address] [address] Jonathan Lay MD [address] [place] [phone] Riddhi@[email or web address] 06/01/2025 11:00 AM EST Procedure visit [address] [address] Robin العراقي MD, PhD, MPH [address] [place] [phone] Cathy@[email or web address] 06/01/2025 11:10 AM EST Office Visit [address] [address] Robin العراقي MD, PhD, MPH [address] [place] [phone] Cathy@[email or web address] documented as of this encounter Visit Diagnoses Not on filedocumented in this encounter Care Teams Learning Support Services Director Relationship Specialty Start Date End Date Haylee Sanchez MD [address] [place] [address] [place] [phone] PCP - General Internal Medicine 07/14/16 documented as of this encounter Additional Source Comments The information contained in this document represents components of the legal health record. It is not the complete legal health record.[facility]
--- OUTSIDE RECORDS SUMMARY | 2025-01-23 10:48 | XMS_ITS | Clinical Summary ---
Author Organization [employer] Formerly [facility] Address [address] [place] [address] Phone Care Team Providers Care Real Estate Leasing Agent Name Role Phone Haylee Sanchez MD Primary Care Provider [phone] Allergies Active Allergy Reactions Criticality Noted Date Comments Alphagan P (Brimonidine) Swelling 08/11/2016 Medications ATORVASTATIN CALCIUM (LIPITOR ORAL) Take by mouth. Active omega 8-nkj-ryt-fish oil 1,000 mg (120 mg-180 mg) Cap Take 1 capsule by mouth daily. Active losartan (COZAAR) 50 MG tablet Take 25 mg by mouth every 3 (three) days. Active prednisoLONE acetate (PRED FORTE) 1 % ophthalmic suspension Place 1 drop into the left eye daily. 15 mL 3 10/20/2024 Active dorzolamide-leda oloL (COSOPT) 22.3-6.8 mg/mL ophthalmic solution Place 1 drop into each eye every morning. 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 x / OS . x Asthma/steroids: No Family history: No Optic nerve structure and function: Medications: Intolerances: Alphagan => red, weepy eyes; timolol => irritation; Rhopressa => itching Procedures and Complications: s/p DSAEK OS (~15 years ago); phaco/GDD OD (?in [place], 2009); GDD revision OD; Kenalog injections at [facility] (OD>OS?); failed trab OD; Ozurdex OD (03/30/[address] Mejia); Carey OD (by Dr. Mejia and Dr. 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 Cannot take visual field, use optical coherence tomography. She would like to continue dorzolamide/timolol daily both eyes and this is fine with me. Chronic cystoid macular edema left eye: Giovanna caring for her, long-acting steroid injections. Seearie Almaraz in vision rehabilitation Assessment & Plan (03/31/2024 9:02 AM EST): Glaucoma: may have had acute angle closure attack has laser peripheral iridotomy both eyes, visual acuity 20/70, counting fingers, Central corneal thickness: 502 / 442 Intraocular pressure is low on current regimen, visual field right eye appears worse, but optical coherence tomography mostly the same and intraocular pressure low. Follow 10-2 right eye and optical coherence tomography. She would like dorzolamide/timolol daily both eyes and this is fine with me. Chronic cystoid macular edema left eye: Giovanna caring for her Seearie Almaraz in vision rehabilitation Assessment & Plan (02/11/2024 11:03 AM EST): Glaucoma: may have had acute angle closure attack has laser peripheral iridotomy both eyes, visual acuity 20/70, counting fingers, Central corneal thickness: 502 / 442 Intraocular pressure is low on current regimen but no signs of hypotony - stop dorzolamide-timolol both eyes (using 2x/day) Visual field right eye appear worse at last visit, but optical coherence tomography mostly the same and intraocular pressure low. 10-2 obtained today right eye - will monitor with 10-2 moving forward. Chronic cystoid macular edema left eye: Ashlee caring for her Assessment & Plan (10/21/2023 9:04 AM EDT): Glaucoma: may have had acute angle closure attack has laser peripheral iridotomy both eyes, visual acuity 20/70, counting fingers, Central corneal thickness: 502 / 442 Intraocular pressure is low on current regimen, visual field right eye appears worse, but optical coherence tomography mostly the same and intraocular pressure low. 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 Pseudophakia of both eyes 05/07/2017 Encounters Date Type Department Care Team Description 01/11/2025 9:35 AM EDT Procedure visit [facility] [place] [place] [address] [place] [address] [address] Jonathan Lay MD Cystoid macular edema of right eye (Primary Dx); Primary open angle glaucoma of both eyes, severe stage; Visual disturbance 10/27/2024 2:10 PM EDT Office Visit [facility] [place] [address] [address] Jonathan Lay MD Cystoid macular edema of both eyes (Primary Dx); Primary open angle glaucoma of both eyes, severe stage from Last 3 Months Immunizations Immunization Administration Dates Next Due COVID-19 (Pre-01/25) Pfizer Vaccine, mRNA, PF 01/30/2021,06/20/2020,06/20/2020 Family History Medical History Relation Comments Stomach cancer Brother Colon cancer Father No Known Problems Maternal Aunt No Known Problems Maternal Grandfather No Known Problems Maternal Grandmother No Known Problems Maternal Uncle No Known Problems Mother No Known Problems Paternal Aunt No Known Problems Paternal Grandfather No Known Problems Paternal Grandmother No Known Problems Paternal Uncle No Known Problems Sister Amblyopia Neg Hx Blindness Neg Hx Breast cancer Neg Hx Cancer Neg Hx Cardiovascular disease Neg Hx Cataracts Neg Hx Choroidal Nevus Neg Hx Corneal Transplantation Neg Hx Diabetes Neg Hx Glaucoma Neg Hx Hypertension Neg Hx Kidney cancer Neg Hx Liver cancer Neg Hx Lung cancer Neg Hx Macular degeneration Neg Hx Ocular melanoma Neg Hx Osteoporosis Neg Hx Retinal degeneration Neg Hx Retinal detachment Neg Hx Skin cancer (non-melanoma) Neg Hx Skin cancer, basal cell Neg Hx Skin cancer, squamous cell Neg Hx Skin cancer, unknown type Neg Hx Skin melanoma Neg Hx Strabismus Neg Hx Stroke Neg Hx Thyroid disease Neg Hx Relation Status Comments Brother Father Maternal Aunt Maternal Grandfather Maternal Grandmother Maternal Uncle Mother Paternal Aunt Paternal Grandfather Paternal Grandmother Paternal Uncle Sister Social History Tobacco Use Types Packs/Day Years Used Date Smoking Tobacco: Never Smokeless Tobacco: Never Alcohol Use Standard Drinks/Week Comments No 0 (1 standard drink = 0.6 oz pur e alcohol) Education Answer Date Recorded Are you interested in more education? Not on nicolle e 07/31/2022 Are you concerned about learning? Not on file 07/31/2022 No 07/31/2022 No 07/31/2022 Digital Access Answer Date Recorded No 08/25/2022 No 08/25/2022 Reliable internet access at home? Not on file 08/25/2022 Device with a working camera? Not on file Comments No Sex and Gender Information Value Date Recorded Sex Assigned at Not on file Legal Sex Female 1:57 PM EST Gender Identity Not on file Sexual Orientation Not on file Last Filed Vital Signs Vital Sign Reading Time Taken Comments Blood Pressure 166/86 10/29/2022 10:11 AM EDT Pulse 66 10/29/2022 10:11 AM EDT Temperature 36.7 C (98.1 F) 09/30/2020 7:58 AM EDT Respiratory Rate 18 10/29/2022 10:11 AM EDT Oxygen Saturation 100% 09/30/2020 8:16 AM EDT Inhaled Oxygen Concentration - - Weight 48.5 kg (107 lb) 09/30/2020 7:23 AM EDT Height 149.9 cm (4' 11 ) 09/30/2020 7:23 AM EDT Body Mass Index 21.61 09/30/2020 7:23 AM EDT Plan of Treatment Upcoming Encounters Date Type Department Care Team (Late st Contact Info) Description 04/02/2025 1:20 PM EST Procedure visit [facility] [place] [place] [address] [place] [id number] Jonathan Lay MD [address] [place] [id number] [email or web address] 06/01/2025 11:00 AM EST Procedure visit [facility] [place] [address] [address] Robin العراقي MD, PhD, MPH [address] [place] [id number] [email or web address] 06/01/2025 11:10 AM EST Office Visit [facility] [place] [address] [address] Robin العراقي MD, PhD, MPH [address] [place] [id number] [email or web address] Health Maintenance Due Date Last Done Comments CREATININE LEVEL 1945 LIPID PANEL 1945 POTASSIUM LEVEL 1945 DEPRESSION SCREENING 1957 HEPATITIS C SCREENING 10/24/1963 OSTEOPOROSIS SCREENING INITIAL (ONE-TIME) 2010 ZOSTER VACCINES (3 of 3) 06/22/2019 04/27/2019, 12/04 RSV VACCINE (1 - 1-dose 75+ series) 2020 INFLUENZA VACCINE (#1) 2024 9, 12/20/2015, 01/24/2015, Additional history exists COVID-19 VACCINE ( season) 2024 01/30/2021, 06/20/2020, 06/20/2020 Adult Td,Tdap Booster 07/31/2032 07/31/2022, 003 PNEUMOCOCCAL VACCINES (50+ years) Completed 09/20/2017, 08/21/2016, 11/14/2010 SMOKING STATUS SCREENING (Once After 26 Yrs) Completed 10/27/2024 HEPATITIS A VACCINES Aged Out No long er eligible based on patient's age to complete this topic HIB VACCINES Aged Out No longer eligi ble based on patient's age to complete this topic MENINGOCOCCAL VACCINES (ACWY) Aged Out No longer eligible based on patient's age to complete this topic MENINGOCOCCAL VACCINES (B) Aged Out N o longer eligible based on patient's age to complete this topic Medical Devices Not on file Procedures Procedure Name Priority Date/Time Associated Diagnosis Comments INTRAVITREAL INJECTION, PHARMACOLOGIC AGENT - OD - RIGHT EYE Routine 01/11/2025 10:25 AM EDT Cystoid macular edema of right eye Primary open angle glaucoma of both eyes, severe stage Visual disturbance OCT, RETINA - OU - BOTH EYES Routine 01/11/2025 9:45 AM EDT Cystoid macular edema of right eye Primary open angle glaucoma of both eyes, severe stage Visual disturbance INTRAVITREAL INJECTION, PHARMACOLOGIC AGENT - OD - RIGHT EYE Routine 10/27/2024 8:13 PM EDT Cystoid macular edema of both eyes COLOR FUNDUS PHOTOGRAPHY - OU - BOTH EYES Routine 10/27/2024 3:19 PM EDT Cystoid macular edema of both eyes OCT, RETINA - OU - BOTH EYES Routine 10/27/2024 3:19 PM EDT Cystoid macular edema of both eyes from Last 3 Months Results * Intravitreal Injection, Pharmacologic Agent - OD - Right Eye (01/11/2025 10:25 AM EDT) Other Narrative Jonathan Lay MD - 01/11/2025 10:25 AM EDT Pre-Procedure Fall Risk Assessment: age >65 (10 pts), language barrier (5 pts). Pre Procedure Drops to Injected Eye Anesthetic Medication: Proparacaine 0.5%. 10:17 AM. Injection Information Timeout performed: Yes. Anesthetic Medication: Proparacaine 0.5%. Anesthetic Medication, time: 10:20 AM. Antiseptic Medication Povidone Iodine. Antiseptic Medication, Time: 10:22 AM. Injection Medication: 0.7 mg dexAMETHasone 0.7 mg Route: Intravitreal, Site: Right Eye NDC: 5752-3128-94, Lot: [id number], Expiration date: 01/02/2027, Waste: 0 mg Post-Procedure Pain Assessment: 0. Fall Risk Reassessment: age >65 (10 pts). Jonathan Lay MD OPHTHALMOLOGY PROCEDURES Final Result * OCT, RETINA - OU - BOTH EYES - [place] (01/11/2025 9:45 AM EDT) Angella TUBBS - 01/11/2025 10:25 AM EDT OCT OD much improved : CME outer retinal atrophy OS: stable, lamellar hole with ERM Jonathan Lay MD OPHTHALMOLOGY IMAGING Fin al Result ARLEY * Intravitreal Injection, Pharmacologic Agent - OD - Right Eye (10/27/2024 8:13 PM EDT) Other Narrative Jonathan Lay MD - 10/27/2024 8:13 PM EDT [facility] Right Eye sc: 20/300. Ph sc: 20/200. Left Eye sc: cf @ face. Pre Procedure Drops to Injected Eye Anesthetic Medication: Proparacaine 0.5%. Dilation medication: Phenylephrine 2.5%-Tropicamide 1%. Antibiotic/Antiseptic Medications: Povidone Iodine 5%. Injection Information Timeout performed: Yes. Injection Medication: 0.7 mg dexAMETHasone 0.7 mg Route: Intravitreal, Site: Right Eye NDC: 6235-4070-71, Lot: [id number], Expiration date: 06/02/2026, Waste: 0 mg Jonathan Lay MD OPHTHALMOLOGY PROCEDURES Final Result * Color Fundus Photography - OU - Both Eyes (10/27/2024 3:19 PM EDT) Anatomical Region Laterality Modality Head Photography Narrative 10/27/2024 3:30 PM EDT See exam Consistent with the exam findings, plan per a/p Jonathan Lay MD OPHTHALMOLOGY IMAGING Fin al Result * OCT, RETINA - OU - BOTH EYES - Wheel[place] (10/27/2024 3:19 PM EDT) Narrative HARMONY - 10/27/2024 3:30 PM EDT OCT OD: CME outer retinal atrophy OS: stable, lamellar hole with ERM Jonathan Lay MD OPHTHALMOLOGY IMAGING Fin al Result HARMONY from Last 3 Months Insurance [facility] MEDICARE REPLACEMENT [place], [place] [facility] MEDICARE REPLACEMENT Advance Directives For more information, please contact: [phone] (9AM - 5PM [facility], Wednesday-Wednesday) Documents on File Type Date Recorded 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 It is not the complete legal health record.[facility]
== END 2025-01-23 10:08 | disposition home or self-care (01) ==
LOC: HO.HMCH 09:35
PROVIDERS: PCP Internal Medicine; Visit Provider Internal Medicine
DX: I10 Essential (primary) hypertension (principal); E78.00 Pure hypercholesterolemia, unspecified; R73.01 Impaired fasting glucose; R41.89 Other symptoms and signs involving cognitive functions and awareness; H90.3 Sensorineural hearing loss, bilateral; E53.8 Deficiency of other specified B group vitamins

== ENCOUNTER → 2025-01-23 09:34 | Outpatient (BNVA) | payer OTHER, SELFPAY | PROVIDERS: PCP Internal Medicine; Visit Provider Internal Medicine | DX: I10 Essential (primary) hypertension (principal); E78.00 Pure hypercholesterolemia, unspecified; R73.01 Impaired fasting glucose; R41.89 Other symptoms and signs involving cognitive functions and awareness; H90.3 Sensorineural hearing loss, bilateral; E53.8 Deficiency of other specified B group vitamins; M81.0 Age-related osteoporosis without current pathological fracture; D75.89 Other specified diseases of blood and blood-forming organs; Z79.899 Other long term (current) drug therapy; Z13.31 Encounter for screening for depression | CPT/HCPCS: 96127; 99212 ==

== ENCOUNTER 2025-01-24 08:51 | Outpatient (AMB) | payer OTHER, SELFPAY ==
[2025-01-24 10:00] VITALS: BP 128/66; BMI 22.2
--- NOTE | 2025-01-24 10:00 | A.OFFVIS_ITS ---
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 Services: Photograph Enlarger Present (in person) Photograph Enlarger Name: Beatriz BALDWIN Information Interpreted: non-clinical & clinical Hydrological Technical Officer: Hydrological Technical Officer Present (Beatriz BALDWIN) Accompanied by: Self / Same As Patient Allergies amlodipine Allergy (Unknown, Verified 01/24/25 10:01) swelling metoprolol Allergy (Unknown, Verified 01/24/25 10:01) Unknown pravastatin Allergy (Unknown, Verified 01/24/25 10:01) Unknown simvastatin Allergy (Unknown, Verified 01/24/25 10:01) Unknown atorvastatin (From Lipitor) Adverse Reaction (Intermediate, Verified 01/24/25 10:01) muscle aches Post menopausal: Yes HPI Comments Details: Presenting complaining of vulvar ?swelling no vaginal bleeding no pain no fever or chills The patient was diagnose cystocele was seen by Urogynecology at [facility] and the recommendation was nonsurgical management which the patient elected not to proceed with [facility] Medical History Cramps of right lower extremity Mild cognitive impairment Osteopenia Generalized anxiety disorder Pelvic pain Pelvic pain Urethral disorder, unspecified Vaginal mass Fibroids Finger avulsion Diverticulitis Osteoporosis Cognitive impairment Glaucoma Cardiomyopathy Hypercholesterolemia Complex renal cyst Restless leg syndrome Insomnia Hypertension Surgical History History of eye surgery Status post excision of lipoma Corneal transplant status History of cholecystectomy Family History Father Prostate cancer Mother No problems noted. Brother No problems noted. Sister Endometrial cancer Daughter No problems noted. Social History Housing: Apartment Alcohol intake: never Patient Tobacco Use Status: Never used Tobacco Tobacco use type: Cigarette e-Cigarette/Vaping Use: Never Used Second Hand Smoke Exposure: No service: No Current occupational status: retired Gender identity: Female Cognitive needs: Yes Hearing needs: No Vision needs: Yes Review of Systems Const All systems reviewed & are unremarkable except as noted in HPI and below Physical Exam Vital Signs: BMI result Body Mass Index 22.2 General: Yes no CVA tenderness External Female Exam: normal external appearance and normal appearance of the urethra Speculum Exam - Vagina: abnormal appearance of the vagina (Grade 3 cystocele mid and bilateral para vaginal defect), normal palpation, no lesions and no masses Speculum Exam - Cervix: normal appearance of the cervix, normal palpation, no lesions, no masses and nontender Bimanual exam- vagina & uterus: normal bimanual exam, normal palpation, abnormal uterine size (Moderate uterine prolapse), normal palpation, uterine shape normal, No Cervical tenderness present and non-tender Bimanual Exam- Adnexa, other: normal adnexae Back/Spine/Pelvis Back: no CVA tenderness Assessment & Plan Assessment & Plan (1) Cystocele with prolapse: Comment: Central with paravaginal bilateral defect cystocele, moderate uterine prolapse Code(s): N81.4 - Uterovaginal prolapse, unspecified Category: Medical Plan: Discussed with the patient the finding on pelvic exam cystocele with uterine prolapse, options of treatment discussed with the patient including expectant management, pessary versus surgical management. All pros and cons, risks and benefits were discussed with the patient. The patient and her daughter decided to proceed with expectant management, instructions were given to patient and her daughter to call if symptoms get worse. All questions answered, the patient verbalized understanding. Coding Level of Care Code Est Pt Level 3 (27161) Diagnoses Cystocele with prolapse N81.4
== END 2025-01-24 10:24 | disposition home or self-care (01) ==
LOC: HO.HWS 08:51
PROVIDERS: PCP Internal Medicine; Visit Provider Obstetrics & Gynecology
DX: N81.4 Uterovaginal prolapse, unspecified (principal)
CPT/HCPCS: 99213

== ENCOUNTER → 2025-01-24 08:51 | Outpatient (BNVA) | payer OTHER, SELFPAY | PROVIDERS: PCP Internal Medicine; Visit Provider Obstetrics & Gynecology | DX: N81.4 Uterovaginal prolapse, unspecified (principal) | CPT/HCPCS: 99212 ==